=== PATIENT | male | born 1940 | race Caucasian/White ===

== ENCOUNTER 2023-06-02 10:53 | Outpatient (OUT) | payer MEDICARE, SELFPAY ==
--- NOTE | 2023-06-02 | CONS_ITS ---
PROCEDURE DATE: 06/02/2023 PROCEDURE: Trigger point injection right splenius capitis muscle. PREOPERATIVE DIAGNOSIS: Pain secondary to cervical spondylosis, complicated by myofascial spasm of the splenius capitis muscle on the right side. POSTOPERATIVE DIAGNOSIS: Pain secondary to cervical spondylosis, complicated by myofascial spasm of the splenius capitis muscle on the right side. SOLUTION USED FOR INJECTION: 2 mL of 2% lidocaine, 2 mL of 0.25% Marcaine and 10 mg of Kenalog, total of 5 mL, and 2 mL used for the injection at the site. IMMEDIATE COMPLICATIONS: None. PROCEDURE: After informed consent was obtained from the patient, placed in the prone position. Skin overlying the area was prepped with alcohol. A 25 gauge, 1 ?? needle was inserted into the substance of the right splenius capitis muscle at the level of C3. Needle tip advanced until there was a mild twitch response, at which point no indication of intravascular or intraneural needle tip placement. 2 mL of solution was injected. No indication of intravascular or intraneural or intrathecal needle tip placement or injection was noted. Post procedure, patient reports a marked reduction in pain symptoms. EJ
--- NOTE | 2023-06-02 | CONS_ITS ---
CONSULTATION DATE: 06/02/2023 TO: Narayan Arora M.D. CHIEF COMPLAINT: Includes severe right sided neck pain. HISTORY OF PRESENT ILLNESS: Review of systems, past medical/surgical history were obtained and documented on the health questionnaire and is available upon request. He is a 83-year-old male. He reports having pain in the above mentioned areas for at least the last six weeks. It occurred spontaneously and increased gradually to its present state, where he now complains of 8/10 pain, described as a severe tightness with a sharp component, increased with activities such as cervical extension, flexion or when performing lifting maneuvers and pushing/pulling maneuvers are also painful for the patient. He feels most comfortable in the semi-recumbent position. Denies any change in bowel and bladder habits or new sensorimotor changes in the upper extremities. Since the onset of symptoms, he has been using ibuprofen at least 200 mg three times a day for at least the last two months, as he has been using this for also left shoulder pain, but most specifically for his neck pain over the last six weeks. Despite this, and also the use of oral prednisone for the treatment of his neck pain, failed to improve his symptoms significantly. He has also been in a home exercise program, which has been supervised, and he reports his symptoms persist despite the same. His DAMION on today?s visit was 46%. Patient does report he has baclofen at home and has been using this sparingly, but he has not used any in the last several weeks for unclear reasons. EXAM: His examination is notable for patient having no clinical radiculopathy or myelopathy involving his upper extremities. Patient had severe pain with cervical facet loading maneuvers on the right side. It appeared to be more severe at the right C3-4 level and possibly even the C4-5 level. It is associated with myofascial spasm of the right splenius capitis muscle. IMPRESSION: Our impression is patient appears to have chronic pain secondary to cervical spondylosis with facet loading pain clinically. He has failed conservative therapy with the use of nonsteroidal agents, the use of oral steroids, as well as activity modification and home exercise program. RECOMMENDATIONS: I have recommended he consider a trigger point injection into his left splenius capitis to address his myofascial dysfunction. We will proceed with a cervical spine film, PA and lateral views. However, we will place a skin marker over the most painful area. It appears to be at the C3-4 level, thus the need for a skin marker to help evaluate which level to target. He appears to have most of his pain symptoms at the C3-4 and the level below, and we will proceed with a diagnostic right sided medial branch block, most likely at the C3-4 level. We will assess the second level to be done under fluoroscopy. So, we will perform a two level medial branch block corresponding to at least the C3-4 level and then one additional facet level, to be determined during the time of the procedure, under fluoroscopy. Of note, status post trigger point injection of the right splenius capitis muscle, he reports reduction in his pain symptoms post procedurally. As part of providing excellent, safe, comprehensive care, the following was completed at our patient's visit: 1. A medication reconciliation and review to ensure accurate knowledge of current/active medications, including asking our patients to inform us about any [id number] medications or herbal remedies/nutritional supplements/alternative remedies. 2. A review to specifically ensure our patients have had annual screening for: elevated body mass index (BMI, see intake chart for exact total), tobacco use, screening for depression, and screening for unhealthy alcohol use. When screening is concerning, patients are provided with education and the specific recommendation to discuss the concerning health issue and treatment options with their primary care provider. EJ
== END 2023-06-02 10:54 | disposition home or self-care (01) ==
PROVIDERS: PCP Family Medicine; Visit Provider Anesthesiology Pain Medicine
DX: M47.812 Spondylosis without myelopathy or radiculopathy, cervical region (principal); M43.12 Spondylolisthesis, cervical region
CPT/HCPCS: 72050; G0463; J0665; J3301

== ENCOUNTER 2023-06-02 12:27 | Outpatient (OUT) | payer MEDICARE, SELFPAY ==
--- NOTE | 2023-06-02 12:37 | XR_ITS ---
The [address] [address] Patient Name: MARINA PARTIDA MRN: [id number] date: 1940 Sex: M Assigned Patient Location: [facility] Current Patient Location: [facility] Accession/Order Number: [id number] Exam Date: 06/02/2023 12:51 Report Date: 06/02/2023 13:28 At the request of: SONIA MCKEON Procedure: XR cervical spine 5V EXAMINATION: XR cervical spine 5V HISTORY: cervical spondylosis COMPARISON: No relevant comparison available. FINDINGS: BONES: 2 mm anterolisthesis of C3 on C4. 2 mm retrolisthesis of C5 on C6 Mild spondylosis. Lzky-vm-tkohdwfu facet osteoarthropathy DISC SPACES: Multilevel disc space narrowing, moderate to severe C5-6 and C6-C7 PARASPINOUS: Negative. No paraspinous abnormality is seen. OTHER: BB marker denotes the C3 transverse process. XR/XR cervical spine 5V IMPRESSION: Moderate to moderate degenerative changes with multilevel minimal spondylolisthesis Electronically authenticated by: DIRK HARRINGTON Date: 06/02/2023 13:28
== END 2023-06-02 12:28 | disposition home or self-care (01) ==
LOC: RAD 12:29
PROVIDERS: PCP Family Medicine; Visit Provider Anesthesiology Pain Medicine
DX: M47.812 Spondylosis without myelopathy or radiculopathy, cervical region (principal); M43.12 Spondylolisthesis, cervical region
CPT/HCPCS: 72050

== ENCOUNTER 2023-08-03 10:35 | Day surgery (SDC) | payer MEDICARE, SELFPAY ==
[2023-08-03 11:11] VITALS: BP 140/73; PULSE 68; RESP 16; TEMP 36.2; O2SAT 97
[2023-08-03 11:49] VITALS: BP 154/72; PULSE 63; RESP 18; O2SAT 97
[2023-08-03 11:50] VITALS: BP 140/71; PULSE 69; RESP 18; O2SAT 96
[2023-08-03] MEDS: BUPIVACAINE HCL 0.25% PF 25 MG/10 ML VIAL 4 ML INJ (11:50)
[2023-08-03] MEDS: LIDOCAINE HCL 2% PF 100 MG/5 ML VIAL 2 ML INJ (11:50)
--- NOTE | 2023-08-03 11:52 | W.PM.PROCNOT ---
Date of procedure: 08/03/23 Pre-op diagnosis: Cervical spondylosis Post-op diagnosis: same as pre-op Procedure: Procedure: Right C2-3, 3-4 medial branch block Medications: Bupivacaine 0.25% 3cc The patient was seen and examined in the preoperative holding area.? The informed consent was obtained and placed on the chart.? The patient was brought to the medical procedure unit and placed in the prone position.? A timeout was completed verifying correct patient, procedure site, positioning, plan, and special equipment.? Using aseptic technique, the needle is placed at right C2. Under direct fluoroscopic visualization, a Quincke tip needle was advanced to the midpoint of the waist of the articular pillar at the respective medial branch segment. The above-mentioned injectate was placed in a 1 mL aliquot proceeded by negative aspiration.? The needle was removed.? The procedure was completed at right C3, 4. Insertion site was covered.? Patient was taken to the postprocedural recovery area and monitored for an appropriate length of time before found suitable for discharge in the accompaniment of a responsible adult. Anesthesia: Local Surgeon: Monique Bray Pathology: none sent Condition: stable Disposition: no change
== END 2023-08-03 11:58 | disposition home or self-care (01) ==
PROVIDERS: PCP Family Medicine; Visit Provider Anesthesiology
DX: M47.812 Spondylosis without myelopathy or radiculopathy, cervical region (principal)
CPT/HCPCS: 64490; 64491

== ENCOUNTER 2023-08-12 12:42 | Outpatient (OUT) | payer MEDICARE, SELFPAY ==
--- NOTE | 2023-08-12 12:46 | P.CN_ITS ---
Consult Note: HPI Data of Consult Patient: known to practice within the last 3 years Requesting Physician: Shasta Joshi NP Primary Care Provider: MARLON LUU Consult Narrative Reason for consult: f/u Narrative: Good Bobby a pleasant 83 year old male presents for evaluation and management of chronic right sided neck and left shoulder pain greater than 3 months unresponsive to HEP greater than 6 weeks, conservative medications. In the past utilized ibuprofen 200mg PRN with mild benefit. Failed prednisone. Pain today 7- 12/18 at this time, patient has not taken any ibuprofen today. utilizes heat PRN which can worsen his pain. Patient has been prescribed baclofen in the past which helps but causes drowsiness. Recently underwent Right C2-3, 3-4 medial branch block with >80% improvement in pain and functional ability immediately following and days following the procedures. cc:: CC: Shasta Joshi NP Review of Systems ROS Status of ROS 10 or more systems reviewed and unremark able except as noted in history and below Musculoskeletal Reports: neck pain Meds Home Medications and Allergies Home Medications ?Medication ?Instructions ?Recorded ?Confirmed ?Type albuterol sulfate 90 mcg/actuation 1 inh inhalation .everyday PRN 06/02/23 0 08/03/23 History breath activated powder inhaler shortness of breath or wheezing ibuprofen 200 mg capsule 200 mg PO TID PRN pain 06/02/23 08/03/23 History triamcinolone acetonide 0.1 % 1 applic topical DAILY PRN itching 06/02/23 08/03/23 History topical cream Allergies Allergy/AdvReac Type Severity Reaction Status Date / Time No Known Drug Allergies Allergy Verified 08/03/23 11:19 Exam Constitutional Documenting provider has reviewed patient's vital signs: yes Common normals: no apparent distress, oriented x3, healthy appearing, alert and well nourished General appearance: cooperative HENMT Common normals: normocephalic, hearing grossly normal bilaterally and moist oral mucous membranes Head and scalp: normocephalic Eye Common normals: PERRL Pupil: PERRL Neck & C-Spine Common normals: full ROM General: normal visual inspection Cervical spine: pain with cervical ROM, cervical spine tenderness, paracervical muscle tenderness and paracervical muscle spasm Other: axial neck pain pain increased over right C2-3 C3-4 facet joints no radiculopathy on exam Chest Common normals: inspection of chest normal Respiratory Common normals: normal respiratory effort, no retractions and no use of accessory muscles Extremity Common normals: normal to inspection and full ROM Neuro Common normals: oriented x3, CN's II-XII intact bilaterally, moves all extremities, no focal motor deficits, no sensory deficits noted, deep tendon reflexes 2+ bilaterally and gait normal Sensorium/orientation: alert Motor exam: strength 5/5 throughout and no movement abnormalities noted Psych Common normals: mental status grossly normal, thought process normal, cooperative, affect normal, speech normal and activity/motor behavior normal Speech: normal speech Thought process: normal thought process Results Additional Findings Additional findings: If on a controlled substance or opioids, I have checked an [place] report on this patient and there are no aberrancies noted in the prescribing history.??If on a controlled substance or opioid a drug screen was completed and reviewed within the last year, and if there has not been a drug screen completed we ordered one today to monitor higher risk, state monitored pain medication use. As part of providing excellent, safe, comprehensive care, the following was completed at our patient's visit: 1. A medication reconciliation and review to ensure accurate knowledge of current/active medications, including asking our patients to inform us about any [id number] medications or herbal remedies/nutritional supplements/alternative remedies. 2. A review to specifically ensure our patients have had annual screening for screening for depression, screening for tobacco use, and screening for unhealthy alcohol use. For concerning screenings had a discussion with the patient, provided patient education, and recommended follow-up with primary care provider when appropriate. If patient noted with a risk of falling, they received education on strength, gait, and balance training to prevent future risk of falling. Assessment and Plan Assessment and Plan (1) Cervical spondylosis: Assessment and Plan: The patient has had over 3 months of moderate to severe neck pain with functional impairment and inadequate response to conservative care including NSAIDS (unless there are contraindication such as concurrent blood thinners), multiple oral or topical pain medications, and home exercise program/physical therapy.? Patient has completed >6 weeks of guided home exercise program and/or formal physical therapy program without relief of their symptoms.? I have reviewed the imaging of the cervical spine and no red flags were identified.? The Oswestry Disability Index was completed, and the patient scored a %.? The patient noted the following:?? {[id number]}? We discussed the risks and benefits of the procedure with the patient, and we are NOT planning on using sedation as outlined in the guidelines from Medicare unless there is a documented reason that sedation would be strongly recommended.?? The procedure will be completed with fluoroscopic guidance.? (2) Myofascial pain: Plan right C2-3 C3-4 facet medial branch block #2 continue PRN ibuprofen f/u 1 week after injection
--- OUTSIDE RECORDS SUMMARY | 2023-08-12 12:46 | XMS_ITS | CCD ---
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 Name Role Phone PHYSICIAN, DEFAULT Unavailable Unavailable PHYSICIAN, DEFAULT Unavailable Unavailable PHYSICIAN, DEFAULT Unavailable Unavailable PHYSICIAN, DEFAULT Unavailable Unavailable Jamie Kent [phone] MD Narayan Luu Primary Care Provider [phone] MD Jamie Kent Attending Provider MD Narayan Luu Primary Care Provider MD Jamie Kent Attending Provider BELL, DR MASON Attending Unavailable BELL, DR MASON Consulting Unavailable BELL, DR MASON Primary Care Unavailable BELL, DR MASON Admitting Unavailable ZIEBER, DR ROGERIO Patel Consulting Unavailable Bell, MD Narayan Chung Primary Care Provider MD Jamie Kent Attending Provider MD Narayan Luu Primary Care Provider MD Jamie Kent Attending Provider [phone] Jamie Kent Admitting Unavaila ble Narayan Luu Primary Care Unavailable Jamie Kent Attending Unavaila ble Narayan Luu Primary Care Unavailable Jamie Kent Attending Unavaila ble Jamie Kent Admitting Unavaila ble Narayan Luu Primary Care Unavailable Jamie Kent Attending Unavaila ble Jamie Kent Admitting Unavaila ble INDER OLIVEIRA Attending Unavailable APLJESUS RODRIGUEZ Attending Unavailable NARAYAN LUU Attending Unavailable APLINGJESUS Attending Unavailable APLINGJESUS Referring Unavailable APLINGJESUS Attending Unavailable APLINGJESUS Referring Unavailable Allergies Allergy Classification Reported Allergen(s) Allergy Type Date of Onset Reaction(s) Facility (3 sources) levoFLOXacin Drug Allergy Unknown [facility] Other (2 sources) Penicillin V Drug Allergy Unknown [facility] Other (2 sources) Penicillin Drug Allergy Unknown [facility] Repository Medications Current Medications Medication Drug Class(es) Dates Sig (Normalized) Sig (Original) [id number] 200 actuat albuterol 0.09 mg/actuat metered dose inhaler (3 sources) beta2-Adrenergic Agonist take 1 puff(s) by inhalation every four hours as needed Albuterol Sulfate HFA 108 (90 Base) MCG/ACT 1 puff as needed Inhalation every 4 hrs for 90 days Active take 1 puff(s) by in halation every four hours as needed Albuterol Sulfate HFA 108 (90 Base) MCG/ACT 1 puff as needed Inhalation every 4 hrs Active cefuroxime 500 mg oral tablet (1 source) Cephalosporin Antibacterial take 0.5 tablet by mouth at bedtime Cefuroxime Axetil 500 MG 1/2 tablet Orally at bedtime Active metroNIDAZOLE 500 mg oral tablet (1 source) Nitroimidazole Antimicrobial take 1 tablet by mouth every twenty-four hours metroNIDAZOLE 500 MG 1 tablet Orally Once a day Active nabumetone 500 mg oral tablet (2 sources) Nonsteroidal Anti-inflammatory Drug take 1 tablet by mouth every twelve hours Nabumetone 500 MG 1 tablet Orally Twice a day prn Active Problems Problem Classification Problem Date Documented Da te Episodic/Chronic Nonspecific chest pain (4 sources) Chest pain, unspecified; Translations: [CHEST PAIN UNSPECIFIED] Onset: 09-09-2022 Episodic Other lower respiratory disease (3 sources) Interstitial lung disease; Translations: [Interstitial pulmonary disease, unspecified] Chronic Other lower respiratory disease (3 sources) Interstitial pulmonary disease, unspecified Onset: 10-24-2021 Resolved: 10-24-2021 Chronic Other lower respiratory disease (1 source) Other forms of dyspnea; Translations: [OTHER FORMS OF DYSPNEA] Onset: 09-15-2022 Episodic Residual codes; unclassified (1 source) Localized edema; Translations: [LOCALIZED EDEMA] Onset: 09-15-2022 Episodic Unclassified (1 source) Interstitial pulmonary disease, unspecified; Translations: [Interstitial pulmonary disease, unspecified] Onset: 12-09-2022 Results Test Name Value Interpretation Reference Range Facil ity CT chest wo conon 12-09-2022 CT chest wo con [facility] [place] [address] [place] [id number] Scan Report Signed Patient: Russell Bobby MR#: [id number] : 1940 Acct:[id number] Age/Sex: 82 / M ADM Date: 12/09/22 Loc: CT Room: Type: [facility] Attending Dr: Jamie Kent MD Copies to: Jamie Kent MD Ordering Provider: Jamie Kent MD Date of Service: 12/09/22 CT/CT chest wo con: J84.9 CT CHEST WITHOUT IV CONTRAST: CLINICAL HISTORY: Follow-up pulmonary fibrosis COMPARISON: High-resolution CT chest 04/25/2021 TECHNIQUE: Spiral images were obtained through the chest without IV contrast. This CT exam was performed using one or more following dose reduction techniques: Automated exposure control, adjustment of the mA and/or kV according to patient size, or use of iterative reconstruction technique. FINDINGS: Mediastinum:Thoracic aorta demonstrates mild calcification without aneurysm. Pulmonary trunk appears nondilated. No pleural effusion. No lymphadenopathy. Calcified lymph nodes. The esophagus is grossly unremarkable. Lungs:The degree of fibrotic changes are grossly similar to the prior study, predominantly involving the lung bases without significant honeycombing. Diffuse bronchial wall thickening is noted. With mild bronchiectasis. No consolidation pneumothorax or pleural effusion. No suspicious pulmonary nodule. Abd:No acute findings. Splenic granulomas. Soft tissues/Bones: Soft tissues demonstrate no acute findings. Osseous structures demonstrate degenerative change. CT/CT chest wo con IMPRESSION: No significant change in fibrotic changes of the lungs when compared to the prior study from 04/25/2021. Impression dictated by: Gregorio Parikh Jr., D.O.12/09/2022 7:09 PM Dictation Location: [place] [address] Transcribed By: [facility] 12/09/221908 Dictated By: Gregorio Parikh Jr, DO 12/09/22 1635 Signed By: 12/09/221908 [facility] NM STRESS/REST MULTIon 09-09 NM STRESS/REST MULTI Patient: RUSSELL BOBBY Exam Date: 09/09/2022 : 1940 Gender:M Ordering : DR NARAYAN LUU M.D. Admission #: [id number] Family : Order #: [id number] CLICK HERE TO VIEW EXAM RADIOLOGY REPORT PROCEDURE: RADIONUCLIDE IMAGING STRESS/REST MULTI COMPARISON: None. INDICATIONS: Dyspnea, chest pain TECHNIQUE: Exam Description: Stress/Rest one day protocol gated SPECT Rest Imagin.0 mCi Tc-99m Cardiolite IV on 09/09/2022 Stress Imaging 32.4 mCi Tc-99m Cardiolite IV on 09/09/2022 Exercise Protocol: Candido Heart Rate (bpm): Rest: 63 Max: 116 PMHR: 85 Blood Pressure: Rest: 146/78 Max: 168/84 Exercise Time: Minutes: 4 Seconds: 15 Stage Reached: Stage: 2 Mets 4.6 Symptoms: Rest and peak stress ECG findings were normal and the exercise portion of the study was normal per attending physician Dr. Rose . For more details please see separate cardiac stress test report. FINDINGS: QUALITY OF STUDY: Excellent. PERFUSION DEFECT: None. LOCATION: N/A SIZE: N/A. SEVERITY: N/A. TYPE: N/A. WALL MOTION: Normal. LV SIZE: Normal. 66 mL. TID / TCD: None; 0.9 LVEF: Normal. Calculated EF 80%. SUMMARY: Myocardial perfusion imaging study is NORMAL. CONCLUSION: 1. Normal nuclear medicine myocardial perfusion scan. Dictated by: Rogerio Null M.D. on 09/09/2022 at 13:29 Approved by: Rogerio Null M.D. on 09/09/2022 at 13:31 Normal [facility] Reminderson 03-23-2019 Reminders - From: Rosalie Roque To: EU - Clinical; Rosalie Roque; Sent: 02/25/2019 12:49:09 EDT Show up: 03/01/2019 08:00:00 EDT Subject: scrotal us results Due Date/Time: 03/02/2019 12:48:00 EDT Reminder/Recall Show PRW scrotal US results, Patient may need appt or right Hydrocelectomy [place]- 02/28/19 @ 1:45pm, scrotal US, order faxed From: Rojelio Smith MA ( - Clinical) To: Luis MEADE MD; Sent: 03/01/2019 08:34:22 EDT Show up: 03/01/2019 08:34:00 EDT Subject: RE: scrotal us results Results scanned into chart. Please review Scoral US report done yesterday at [place]. (black menu- documentation) From: Luis MEADE MD To: - Clinical; Sent: 03/01/2019 11:46:26 EDT Show up: 03/01/2019 11:46:00 EDT Subject: RE: scrotal us results already saw this pw. Pt was notified of results. scheduled for Hydrocelectomy on 03/31/19. Normal [facility] Vital Signs Date Time Vital Sign Value Performing Clinician Lisa lennon 04-08-2023 09:45-0500 Body height 167.64 cm Jamie Kent Other [facility] Other 04-08-2023 09:45-0500 Body mass index (BMI) [Ratio] 28.24 kg/m2 Jamie Kent Other [facility] Other 04-08-2023 09:45-0500 Body temperature 96.4 [degF] Jamie Kent Other [facility] Other 04-08-2023 09:45-0500 Body weight 79.38 kg Jamie Kent Other [facility] Other 04-08-2023 09:45-0500 Diastolic blood pressure 74 mm[Hg] Christopher Yoli Other [facility] Other 04-08-2023 09:45-0500 Respiratory rate 20 /min Christkaraner Yoli Other [facility] Other 04-08-2023 09:45-0500 SaO2% (BldA) [Mass fraction] 98 % Christkaraner Yoli Other [facility] Other 04-08-2023 09:45-0500 Systolic blood pressure 122 mm[Hg] Bober Yoli Other [facility] Other 03-26-2022 12:45-0500 Body height 167.64 cm Bober Yoli Other [facility] Other 03-26-2022 12:45-0500 Body mass index (BMI) [Ratio] 28.08 kg/m2 Christkaraner Yoli Other [facility] Other 03-26-2022 12:45-0500 Body temperature 97.1 [degF] Bober Yoli Other [facility] Other 03-26-2022 12:45-0500 Body weight 78.93 kg Christkaraner Yoli Other [facility] Other 03-26-2022 12:45-0500 Diastolic blood pressure 73 mm[Hg] Christkaraner Yoli Other [facility] Other 03-26-2022 12:45-0500 Respiratory rate 20 /min Christkaraner Yoli Other [facility] Other 03-26-2022 12:45-0500 Systolic blood pressure 124 mm[Hg] Juanpearl Lermadano Other [facility] Other 10-24-2021 12:45-0400 Body height 167.64 cm Bobjason LermaYoli Other [facility] Other 10-24-2021 12:45-0400 Body mass index (BMI) [Ratio] 29.05 kg/m2 Juanpearl Lermadano Other [facility] Other 10-24-2021 12:45-0400 Body temperature 97.4 [degF] Juanpearl Lermadano Other [facility] Other 10-24-2021 12:45-0400 Body weight 81.65 kg Juanpearl Lermadano Other [facility] Other 10-24-2021 12:45-0400 Diastolic blood pressure 80 mm[Hg] Jamie Yoli Other [facility] Other 10-24-2021 12:45-0400 Respiratory rate 20 /min Jamie Kent Other [facility] Other 10-24-2021 12:45-0400 SaO2% (BldA) [Mass fraction] 94 % Jamie Yoli Other [facility] Other 10-24-2021 12:45-0400 Systolic blood pressure 129 mm[Hg] Jamie Padillano Other [facility] Other Encounters Encounter Date Encounter Type Care Provider Facility Start: 07-20-2023 End: 07-20-2023 ambulatory JESUS B APLING Not Available Start: 05-27-2023 End: 05-28-2023 ambulatory JESUS Ledezma APLING Not Available Start: 05-07-2023 End: 05-07-2023 ambulatory INDER OLIVEIRA Not Available Start: 04-22-2023 End: 04-23-2023 ambulatory JESUS Ledezma APLING Not Available Start: 04-13-2023 End: 04-13-2023 ambulatory RUGEN M BELL Not Available Start: 04-08-2023 End: 04-08-2023 ambulatory Jamie Kent Other [facility] Other Start: 04-08-2023 Office outpatient visit 25 minutes Jamie Kent [facility] Start: 03-18-2023 End: 03-18-2023 ambulatory Narayan Chung [place] Facility:[facility] Start: 03-18-2023 End: 03-18-2023 ambulatory MD Narayan Luu Work Phone: [facility] Work Phone: Start: 03-18-2023 End: 03-18-2023 Patient encounter procedure MD Narayan Luu Work Phone: [facility]-Respiratory Therapy Work Phone: Start: 12-09-2022 End: 12-09-2022 ambulatory Jamie Kent Facility:[facility] Start: 12-09-2022 End: 12-09-2022 ambulatory MD Narayan Luu Work Phone: [facility] Work Phone: Start: 12-09-2022 End: 12-09-2022 Patient encounter procedure MD Narayan Luu Work Phone: [facility]-CT Scan [facility] [place] Work Phone: Start: 10-15-2022 End: 10-15-2022 ambulatory Narayan Luu Facility:[facility] Start: 10-15-2022 End: 10-15-2022 ambulatory MD Narayan Luu Work Phone: [facility] Work Phone: Start: 10-15-2022 End: 10-15-2022 Patient encounter procedure MD Narayan Luu Work Phone: [facility]Res[facility] Work Phone: Start: 09-09-2022 End: 09-10-[address] NARAYAN LUU Facility: Start: 03-26-2022 End: 03-26-2022 ambulatory Jamie Kent Other [facility] Other Start: 03-26-2022 Office outpatient visit 15 minutes Jamie Kent [facility] Start: 03-18-2022 End: 03-18-2022 ambulatory MD Narayan Luu Work Phone: [facility] Work Phone: Start: 03-18-2022 End: 03-18-2022 Patient encounter procedure MD Narayan Luu Work Phone: [facility]Res[facility] Start: 11-06-2021 End: 11-06-2021 Patient encounter procedure MD Narayan Luu Work Phone: [facility] Start: 10-24-2021 End: 10-24-2021 ambulatory Jamie Kent Other [facility] Other Start: 10-24-2021 Office outpatient visit 25 minutes Jamie Kent [facility] Start: 12-08-2016 End: 12-09-2016 Ambulatory DEFAULT PHYSICIAN Facility:[facility] Start: 11-20-2016 End: 11-21-2016 Ambulatory DEFAULT PHYSICIAN Facility:[facility] Procedures Date Procedure Procedure Detail Performing Clinician Start: 12-09-2022 CT of chest without contrast MD Narayan Luu Work Phone: Immunizations Immunization Date Immunization Notes Care Provider Fa cili 02-21-2022 COVID-19 Pfizer (bivalent) Jamie Kent Other [facility] Other 10-04-2021 COVID-19 Pfizer Christopher Yoli Other [facility] Other 02-11-2021 COVID-19 Vaccine Pfizer - Documentation Purposes Only Christopher Yoli Other [facility] Other 06-23-2020 Do not use COVID-19 Pfizer 2 dose Christopher Yoli Other [facility] Other 06-02-2020 Do not use COVID-19 Pfizer 2 dose Christopher Yoli Other [facility] Other Payers Date Payer Category Payer Self-pay [id number] 1961 Medicare [id number] 2. [id number] 1940 Unknown [id number] 2.16.84 [id number] 1940 Unknown [id number] 2.16.84 [id number] 1940 Unknown [id number] 2.16.84 [id number] 1940 Unknown [id number] 2.16.84 [id number] 1940 Unknown [id number] 2.16.840 .[id number] 1940 Unknown [id number] 2.16.840 .[id number] 1940 Unknown [id number] 2.16.840 .[id number] 1940 Unknown [id number] 2.16.840 .[id number] Unknown Unknown [id number] 2.16.8 40.1.539117.3.579.2.531 Unknown [id number] 2.16.8 [id number] Unknown [id number] 2.16.8 [id number] Social History Date Type Detail Facility Sex Assigned At [facility] Other Start: 1940 Sex Assigned At Male F [facility] Evaluation note 04-08-2023 Note Date & Type Note Facility 04-08-2023 Evaluation note Encounter Date Diagnosis Assessment Notes Mar, Interstitial lung disease (ICD-10 - J84.9) [facility] Other Evaluation note 03-26-2022 Note Date & Type Note Facility 03-26-2022 Evaluation note Encounter Date Diagnosis Assessment Notes Mar, Interstitial lung disease (ICD-10 - J84.9) [facility] Other Evaluation note 10-24-2021 Note Date & Type Note Facility 10-24-2021 Evaluation note Encounter Date Diagnosis Assessment Notes Oct, Interstitial lung disease (ICD-10 - J84.9) [facility] Other Evaluation note Note Date & Type Note Facility [facility] History general Narrative - Reported Note Date & Type Note Facility History general Narrative - Reported Type Medical History lt. hip bursitis Medical History sinusitis Medical History asthma Medical History diverticulosis Medical History pulmonary fibrosis Medical History pneumonia Medical History interstitial lung disease Surgical History sinus surgery Surgical History back surgery Surgical History kyphoplasty 2007 Surgical History lumbar back 1995 Surgical History trigger thumb left 2014 Surgical History RFA inj. 2019 Surgical History hydrocele repair rt. 2019 Surgical History ENT surgery 2002 Hospitalization History surgery [facility] Other History general Narrative - Reported Note Date & Type Note Facility History general Narrative - Reported Type Medical History lt. hip bursitis Medical History sinusitis Medical History asthma Medical History diverticulosis Medical History pulmonary fibrosis Medical History pneumonia Medical History interstitial lung disease Surgical History sinus surgery Surgical History back surgery Surgical History kyphoplasty 2008 Surgical History lumbar back 1995 Surgical History trigger thumb left 2014 Surgical History RFA inj. 2019 Surgical History hydrocele repair rt. 2019 Surgical History ENT surgery 2002 Hospitalization History surgery Hospitalization History [facility] ER pleurcy 07/2022 [facility] Other Summary Purpose Family History No Family History Records FoundNo Family History Records FoundNo Family History Records FoundNo Family History Records FoundNo Family History Records Found Advance Directives No Advanced Directives Records Found Advance Directive Response Recorded Date/ Time Advance Directives No April 12:05pm Advance Directive Response Recorded Date/ Time Advance Directives No April 11:05am Chief Complaint and Reason for Visit Chief Complaint J84.9 Chief Complaint j84.9 Chief Complaint j84.9 j84.9 Additional Source Comments (unrecognized sect ion and content) No Status Records FoundNo Status Records FoundNo Status Records FoundNo Status Records FoundNo Status Records Found INFORMATION SOURCE (unrecogn ized section and content) DATE CREATED AUTHOR 11/04/2017 [facility] DATE CREATED AUTHOR AUTHOR'S ORGANIZ ATION 05/10/2019 [facility] DATE CREATED AUTHOR AUTHOR'S ORGANIZ ATION 09/16/2022 [facility] DATE CREATED AUTHOR AUTHOR'S ORGANIZ ATION 03/27/2023 [facility] DATE CREATED AUTHOR AUTHOR'S ORGANIZ ATION 07/21/2023 [facility] EPIC REASON FOR VISIT (unrecogniz ed section and content) 3 mo f/u ILD5 mo f/u ILD3 mo f/u ILD Care Teams (unrecognized sec tion and content) Team Status: Active Member Role Status Dates Narayan Luu MD Primary Care Provider Active Team Status: Inactive Member Role Status Dates Narayan Luu MD Primary Care Provider Active Jamie Kent MD Attending Provider Active Goals (unrecognized section and content) Goals may be documented in a n alternate section FOR RECORDS PERTAINING TO PATIENTS WHO ARE OR HAVE BEEN ENROLLED IN A CHEMICAL DEPENDENCY/SUBSTANCEABUSE PROGRAM, SOME INFORMATION MAY BE OMITTED. This clinical summary was aggregated from multiple sources. Caution should be exercised in using it in the provision of clinical care. This summary normalizes information from multiple sources, and as a consequence, information in this document may materially change the coding, format and clinical context of patient data. In addition, data may be omitted in some cases. CLINICAL DECISIONS SHOULD BE BASED ON THE PRIMARY CLINICAL RECORDS. [facility]. provides no warranty or guarantee of the accuracy or completeness of information in this document.
== END 2023-08-12 12:43 | disposition home or self-care (01) ==
LOC: PM 12:42
PROVIDERS: PCP Family Medicine; Visit Provider Nurse Practitioner
DX: M47.812 Spondylosis without myelopathy or radiculopathy, cervical region (principal); M79.18 Myalgia, other site
CPT/HCPCS: G0463

== ENCOUNTER 2023-09-08 10:00 | Day surgery (SDC) | payer MEDICARE, SELFPAY ==
--- OUTSIDE RECORDS SUMMARY | 2023-09-08 10:07 | XMS_ITS | CCD ---
Author Organization [facility] Care Team Providers Care Board Runner Name Role Phone PHYSICIAN, DEFAULT Unavailable Unavailable PHYSICIAN, DEFAULT Unavailable Unavailable PHYSICIAN, DEFAULT Unavailable Unavailable PHYSICIAN, DEFAULT Unavailable Unavailable Jamie Kent [phone] MD Narayan Luu Primary Care Provider MD Jamie Kent Attending Provider MD Narayan Luu Primary Care Provider MD Jamie Kent Attending Provider BELL, DR MASON Attending Unavailable BELL, DR MASON Consulting Unavailable BELL, DR MASON Primary Care Unavailable BELL, DR MASON Admitting Unavailable ZIEBER, DR ROGERIO Patel Consulting Unavailable Bell, MD Narayan Chung Primary Care Provider MD Jamie Kent Attending Provider 1( [phone] MD Narayan Luu Primary Care Provider MD Jamie Kent Attending Provider Jamie Kent Admitting Unavaila ble Narayan Luu Primary Care Unavailable Jamie Kent Attending Unavaila ble Narayan Luu Primary Care Unavailable Jamie Kent Attending Unavaila ble Jamie Kent Admitting Unavaila ble BellNarayan Primary Care Unavailable Jamie Kent Attending Unavaila ble Jamie Kent Admitting Unavaila ble INDER OLIVEIRA Attending Unavailable APLINGJESUS Attending Unavailable APLINGJESUS Referring Unavailable APLINGJESUS Attending Unavailable APLINGJESUS Attending Unavailable APLINGJESUS Referring Unavailable BELLNARAYAN Attending Unavailable APLINGJESUS B Attending Unavailable JESUS VALENCIA Referring Unavailable Allergies Allergy Classification Reported Allergen(s) Allergy Type Date of Onset Reaction(s) Facility (3 sources) levoFLOXacin Drug Allergy Unknown [facility] Other (2 sources) Penicillin V Drug Allergy Unknown [facility] Other (2 sources) Penicillin Drug Allergy Unknown [facility] Repository Medications Current Medications Medication Drug Class(es) Dates Sig (Normalized) Sig (Original) [id number] 200 actuat albuterol 0.09 mg/actuat metered dose [...] Name Value Interpretation Reference Range Facil ity MR SHOULDER LEFT WO IV CONTR Abbie 09-02-2023 MR SHOULDER LEFT WO IV CONTRAST EXAM: MR SHOULDER LEFT WO IV CONTRAST HISTORY: Shoulder pain TECHNIQUE: Multiplanar multisequence MRI of the shoulder was performed Without contrast. COMPARISON: Shoulder radiographs April 22, 2023. FINDINGS: Mild degenerative changes of the acromioclavicular joint with small undersurface osteophyte formation. Lateral downsloping of the acromion. The acromion is curved. Coracoclavicular ligament intact. Trace subacromial/subdeltoid bursal fluid. Low-grade articular surface tear of distal anterior through posterior fibers of supraspinatus tendon at the footprint with possible tiny full-thickness component of the anterior fibers. Tiny intrasubstance tear of superior fibers of subscapularis tendon at the level of the glenohumeral joint. Spinatus and teres minor tendons are intact. No atrophy or fatty infiltration of the rotator cuff musculature. Mild intra-articular and proximal extra-articular long head biceps tendinosis. The biceps tendon resides within the bicipital groove. Anterior superior through posterior superior labral degeneration/tearing. Nondisplaced tear of the inferior through posterior inferior labrum with formation of a tiny paralabral cyst resides along the posterior aspect of the glenoid. Partial-thickness cartilage loss of the humeral head and glenoid without well-defined or measurable cartilage defect. Small glenohumeral joint effusion with a few tiny loose bodies within the axillary recess. IMPRESSION: Low-grade articular surface tear of distal anterior through posterior fibers of supraspinatus tendon at the footprint with possible tiny full-thickness component of the anterior fibers. Tiny intrasubstance tear of superior fibers of subscapularis tendon . Labral tears as detailed. Mild long head biceps tendinosis. 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 ELECTRONICALLY SIGNED BY: Geoffrey Burton, DO Normal Not Available CT chest wo conon 12-09-2022 CT chest wo [facility] [place] [address] [place] [address] CT Scan Report Signed Patient: Russell Bobby MR#: [id number] : 1940 Acct:[id number] Age/Sex: 82 / M ADM Date: 12/09/22 Loc: CT Room: Type: [facility] Attending Dr: Jamie Kent MD Copies to: [...] Parikh Jr., D.O.12/09/2022 7:09 PM Dictation Location: [place] [address] Transcribed By: [facility] 12/09/221908 Dictated By: Gregorio Parikh Jr, 12/09/22 1635 Signed By: 12/09/221908 [facility] NM STRESS/REST MULTIon 09-09 NM STRESS/REST MULTI Patient: RUSSELL BOBBY Exam Date: 09/09/2022 : 1940 Gender:M Ordering : DR NARAYAN LUU M.D. Admission #: [id number] Family : Order #: [id number] CLICK HERE TO VIEW EXAM RADIOLOGY REPORT [...] Null M.D. on 09/09/2022 at 13:31 Normal [facility] Reminderson 03-23-2019 Reminders - From: Rosalie Roque To: [facility] - Clinical; Rosalie Roque; Sent: 02/25/2019 12:49:09 EDT Show up: 03/01/2019 08:00:00 EDT Subject: scrotal us results Due Date/Time: 03/02/2019 12:48:00 EDT Reminder/Recall Show PRW scrotal US results, Patient may need appt or right Hydrocelectomy [place]- 02/28/19 @ 1:45pm, scrotal US, order faxed From: Rojelio Smith MA ([facility] - Clinical) To: Luis MEADE MD; Sent: 03/01/2019 08:34:22 EDT Show up: 03/01/2019 08:34:00 EDT Subject: RE: scrotal us results Results scanned into chart. Please review Scoral US report done yesterday at [place]. (black menu- documentation) From: Luis MEADE MD To: [facility] - Clinical; Sent: 03/01/2019 11:46:26 EDT Show up: 03/01/2019 11:46:00 EDT Subject: RE: scrotal us results already saw this pw. Pt was notified of results. scheduled for Hydrocelectomy on 03/31/19. Normal [facility] Vital Signs Date Time Vital Sign Value Performing Clinician Lisa lennon 04-08-2023 09:45-0500 Body height 167.64 cm Jamie Kent Other [facility] Other 04-08-2023 09:45-0500 Body mass index (BMI) [Ratio] 28.24 kg/m2 Jamie Kent Other [facility] Other 04-08-2023 09:45-0500 Body temperature 96.4 [degF] Jamie Kent Other [facility] Other 04-08-2023 09:45-0500 Body weight 79.38 kg Jamie Kent Other [facility] Other 04-08-2023 09:45-0500 Diastolic blood pressure 74 mm[Hg] Jamie Kent Other [facility] Other 04-08-2023 09:45-0500 Respiratory rate 20 /min Jamie Kent Other [facility] Other 04-08-2023 09:45-0500 SaO2% (BldA) [Mass fraction] 98 % Christkaraner Yoli Other [facility] Other 04-08-2023 09:45-0500 Systolic blood pressure 122 mm[Hg] Christkaraner Yoli Other [facility] Other 03-26-2022 12:45-0500 Body height 167.64 cm Christopher Yoli Other [facility] Other 03-26-2022 12:45-0500 Body mass index (BMI) [Ratio] 28.08 kg/m2 Christopher Yoli Other [facility] Other 03-26-2022 12:45-0500 Body temperature 97.1 [degF] Bober Yoli Other [facility] Other 03-26-2022 12:45-0500 Body weight 78.93 kg Christkaraner Yoli Other [facility] Other 03-26-2022 12:45-0500 Diastolic blood pressure 73 mm[Hg] Christkaraner Yoli Other [facility] Other 03-26-2022 12:45-0500 Respiratory rate 20 /min Christopher Yoli Other [facility] Other 03-26-2022 12:45-0500 Systolic blood pressure 124 mm[Hg] Christopher Yoli Other [facility] Other 10-24-2021 12:45-0400 Body height 167.64 cm Bober Yoli Other [facility] Other 10-24-2021 12:45-0400 Body mass index (BMI) [Ratio] 29.05 kg/m2 Jamie Kent Other [facility] Other 10-24-2021 12:45-0400 Body temperature 97.4 [degF] Jamie Kent Other [facility] Other 10-24-2021 12:45-0400 Body weight 81.65 kg Jamie Kent Other [facility] Other 10-24-2021 12:45-0400 Diastolic blood pressure 80 mm[Hg] Jamie Kent Other [facility] Other 10-24-2021 12:45-0400 Respiratory rate 20 /min Jamie Kent Other [facility] Other 10-24-2021 12:45-0400 SaO2% (BldA) [Mass fraction] 94 % Jamie Kent Other [facility] Other 10-24-2021 12:45-0400 Systolic blood pressure 129 mm[Hg] Jamie Kent Other [facility] Other Encounters Encounter Date Encounter Type Care Provider Facility Start: 09-02-2023 End: 09-03-2023 ambulatory JESUS B APLING Not Available Start: 08-19-2023 End: 08-19-2023 ambulatory JESUS B APLING Not Available Start: 07-20-2023 End: 07-20-2023 ambulatory JESUS B APLING Not Available Start: 05-27-2023 End: 05-28-2023 ambulatory JESUS B APLING Not Available Start: 05-07-2023 End: 05-07-2023 ambulatory INDER Bradley OLIVEIRA Not Available Start: 04-22-2023 End: 04-23-2023 ambulatory JESUS Ledezma APLING Not Available Start: 04-13-2023 End: 04-13-2023 ambulatory NARAYAN LUU Not Available Start: 04-08-2023 End: 04-08-2023 ambulatory Jamie Kent Other [facility] Other Start: 04-08-2023 Office outpatient visit 25 minutes Jamie Kent [facility] Start: 03-18-2023 End: 03-18-2023 ambulatory Narayan Luu Facility:[facility] Start: 03-18-2023 End: 03-18-2023 ambulatory MD Narayan Luu Work Phone: [facility] Work Phone: Start: 03-18-2023 End: 03-18-2023 Patient encounter procedure MD Narayan Luu Work Phone: [facility]-Respiratory Therapy Work Phone: Start: 12-09-2022 End: 12-09-2022 ambulatory Jamie Kent Facility:[facility] Start: 12-09-2022 End: 12-09-2022 ambulatory MD Narayan Luu Work Phone: [facility] Work Phone: Start: 12-09-2022 End: 12-09-2022 Patient encounter procedure MD Narayan Luu Work Phone: [facility]-CT Scan [facility] [place] Work Phone: Start: 10-15-2022 End: 10-15-2022 ambulatory Narayan Luu Facility:[facility] Start: 10-15-2022 End: 10-15-2022 ambulatory MD Narayan Luu Work Phone: [facility] Work Phone: Start: 10-15-2022 End: 10-15-2022 Patient encounter procedure MD Narayan Luu Work Phone: [facility]-Respiratory Therapy Work Phone: Start: 09-09-2022 End: 09-10-[address] NARAYAN LUU Facility: Start: 03-26-2022 End: 03-26-2022 ambulatory Jamie Kent Other [facility] Other Start: 03-26-2022 Office outpatient visit 15 minutes Christpearl Kent [facility] Start: 03-18-2022 End: 03-18-2022 ambulatory MD Narayan Luu Work Phone: [facility] Work Phone: Start: 03-18-2022 End: 03-18-2022 Patient encounter procedure MD Narayan Luu Work Phone: [facility]Respiratory Therapy Start: 11-06-2021 End: 11-06-2021 Patient encounter procedure MD Narayan Luu Work Phone: [facility]Respiratory Therapy Start: 10-24-2021 End: 10-24-2021 ambulatory Jamie Kent Other [facility] Other Start: 10-24-2021 Office outpatient visit 25 minutes Christopher Yoli [facility] Start: 12-08-2016 End: 12-09-2016 Ambulatory DEFAULT PHYSICIAN Facility:[facility] Start: 11-20-2016 End: 11-21-2016 Ambulatory DEFAULT PHYSICIAN Facility:[facility] Procedures Date Procedure Procedure Detail Performing Clinician Start: 12-09-2022 CT of chest without contrast MD Narayan Luu Work Phone: Immunizations Immunization Date Immunization Notes Care Provider Fa cili 02-21-2022 COVID-19 Pfizer (bivalent) Christopher Yoli Other [facility] Other 10-04-2021 COVID-19 Pfizer Christopher Yoli Other [facility] Other 02-11-2021 COVID-19 Vaccine Pfizer - Documentation Purposes Only Jamie Yoli Other [facility] Other 06-23-2020 Do not use COVID-19 Pfizer 2 dose Christopher Yoli Other [facility] Other 06-02-2020 Do not use COVID-19 Pfizer 2 dose Christopher Yoli Other [facility] Other Payers Date Payer Category Payer Self-pay [id number] 1961 Medicare [id number] 2. [id number] 1940 Unknown [id number] 2.16.84 [id number] 1940 Unknown [id number] 2.16.84 0.1.500275.3.579.2.1258 1940 Unknown [id number] 2.16.84 0.1.531057.3.579.2.1259 1940 Unknown [id number] 2.16.84 0.1.199240.3.579.2.1259 1940 Unknown [id number] 2.16.84 0.1.905067.3.579.2.1259 1940 Unknown [id number] 2.16.84 0.1.728104.3.579.2.125 1940 Unknown [id number] 2.16.840 .1.293925.3.579.2.1259 1940 Unknown [id number] 2.16.840 .1.161638.3.579.2.125 1940 Unknown [id number] 2.16.840 .1.647440.3.579.2.1259 1940 Unknown [id number] 2.16.840 .1.787454.3.579.2.1259 Unknown Unknown [id number] 2.16.8 40.1.175463.3.579.2.531 Unknown [id number] 2.16.8 40.1.049017.3.579.2.531 Unknown [id number] 2.16.8 40.1.241678.3.579.2.531 Social History Date Type Detail Facility Sex Assigned At Recommind [facility] Other Start: 1940 Sex Assigned At Male F [facility] Evaluation note 04-08-2023 Note Date & Type Note Facility 04-08-2023 Evaluation note Encounter Date Diagnosis Assessment Notes Mar, Interstitial lung disease (ICD-10 - J84.9) [facility] Other Evaluation note 03-26-2022 Note Date & Type Note Facility 03-26-2022 Evaluation note Encounter Date Diagnosis Assessment Notes Mar, Interstitial lung disease (ICD-10 - J84.9) [facility] Other Evaluation note 10-24-2021 Note Date & Type Note Facility 10-24-2021 Evaluation note Encounter Date Diagnosis Assessment Notes Oct, Interstitial lung disease (ICD-10 - J84.9) [facility] Other Evaluation note Note Date & Type Note Facility Evaluation note No assessment information availa [facility] Work Phone: History general Narrative - [...] History ENT surgery 2002 Hospitalization History surgery [facility] Other History general Narrative - Reported Note [...] surgery 2002 Hospitalization History surgery Hospitalization History [facility] pleurcy 07/2022 [facility] Other Summary Purpose Family History No Family [...] section and content) DATE CREATED AUTHOR 11/04/2017 [facility] DATE CREATED AUTHOR AUTHOR'S ORGANIZ ATION 05/10/2019 [facility] DATE CREATED AUTHOR AUTHOR'S ORGANIZ ATION 09/16/2022 [facility] DATE CREATED AUTHOR AUTHOR'S ORGANIZ ATION 03/27/2023 [facility] DATE CREATED AUTHOR AUTHOR'S ORGANIZ ATION 09/07/[address] [facility] EPIC REASON FOR VISIT (unrecogniz [...] BE BASED ON THE PRIMARY CLINICAL RECORDS. [facility] provides no warranty or guarantee of the accuracy or completeness of information in this document.
[2023-09-08 10:16] VITALS: BP 118/78; PULSE 66; TEMP 36.2; O2SAT 98
[2023-09-08 10:43] VITALS: BP 137/63; BP 149/67; PULSE 64; PULSE 72; O2SAT 95; O2SAT 96
[2023-09-08] MEDS: BUPIVACAINE HCL 0.25% PF 25 MG/10 ML VIAL 3 ML INJ (10:44)
--- NOTE | 2023-09-08 10:55 | P.ON_ITS ---
Date of procedure: 09/08/23 Pre-op diagnosis: cervical spondylosis Post-op diagnosis: same as pre-op Procedure: Right Cervical 2/3, 3/4 medial branch block Under fluoroscopic guidance Solution injected: 2millilitersMarcaine 0.25% Anesthesia :none Immediate complications none Time out process compliant After informed consent obtained from the patient placed in the Prone proposition . area was prepped and draped in a sterile fashion using Cloraprep .25 gauge spinal needle inserted over each of the above mentioned target areas . [place] were directed towards the target under fluoroscopic guidance . after encountering each of the targets , no indication of intravascular intraneuronal or intrathecal needle tip placement. Then 0 .5 to 1 Milliliter was injected at each level. [place] removed postoperatively. patient transferred to recovery in stable condition to be discharged home after meeting criteria Anesthesia: Local Surgeon: Delores Randall Condition: stable
== END 2023-09-08 10:57 | disposition home or self-care (01) ==
LOC: SURGOUT 10:00
PROVIDERS: PCP Family Medicine; Visit Provider Anesthesiology Pain Medicine
DX: M47.812 Spondylosis without myelopathy or radiculopathy, cervical region (principal)
CPT/HCPCS: 64490; 64491

== ENCOUNTER 2023-09-17 11:04 | Outpatient (OUT) | payer MEDICARE, SELFPAY ==
--- NOTE | 2023-09-17 12:07 | P.CN_ITS ---
Consult Note: HPI Data of Consult Patient: known to practice within the last 3 years Requesting Physician: Shasta Joshi NP Primary Care Provider: MARLON LUU Consult Narrative Reason for consult: f/u Narrative: Good Bobby a pleasant 83 year old male presents for evaluation and management of chronic right sided neck and left shoulder pain greater than 3 months unresponsive to HEP greater than 6 weeks, conservative medications. In the past utilized ibuprofen 200mg PRN with mild benefit. Failed prednisone. Pain today - 12/18 at this time, patient has not taken any ibuprofen today. utilizes heat PRN which can worsen his pain. Patient has been prescribed baclofen in the past which helps but causes drowsiness. Recently underwent Right C2-3, 3-4 medial branch block #2 with >80% improvement in pain and functional ability immediately following and days following the procedures. cc:: CC: Shasta Joshi NP Review of Systems ROS Status of ROS 10 or more systems reviewed and unremark able except as noted in history and below [facility] Medical History Osteoarthritis ?M19.90 - Unspecified osteoarthritis, unspecified site (ICD-10) Neck pain ?M54.2 - Cervicalgia (ICD-10) Pleurisy ?R09.1 - Pleurisy (ICD-10) Lung fibrosis ?J84.10 - Pulmonary fibrosis, unspecified (ICD-10) Surgical History S/P hernia repair ?Z98.890 - Other specified postprocedural states (ICD-10) ?Z87.19 - Personal history of other diseases of the digestive system (ICD-10) Status post lung surgery ?Z98.890 - Other specified postprocedural states (ICD-10) H/O lumbosacral spine surgery ?Z98.890 - Other specified postprocedural states (ICD-10) Meds Home Medications and Allergies Home Medications ?Medication ?Instructions ?Recorded ?Confirmed ?Type albuterol sulfate 90 mcg/actuation 1 inh inhalation .everyday PRN 06/02/23 09/08/23 History breath activated powder inhaler shortness of breath or wheezing ibuprofen 200 mg capsule 200 mg PO TID PRN pain 06/02/23 09/08/23 History triamcinolone acetonide 0.1 % 1 applic topical DAILY PRN itching 06/02/2308/11 History topical cream Allergies Allergy/AdvReac Type Severity Reaction Status Date / Time No Known Drug Allergies Allergy Verified 09/08/23 10:18 Exam Constitutional Documenting provider has reviewed patient's vital signs: yes Common normals: no apparent distress, oriented x3, healthy appearing, alert and well nourished General appearance: cooperative HENMT Common normals: normocephalic, hearing grossly normal bilaterally and moist oral mucous membranes Head and scalp: normocephalic Eye Common normals: PERRL Pupil: PERRL Neck & C-Spine Common normals: full ROM General: normal visual inspection Cervical spine: pain with cervical ROM, cervical spine tenderness, paracervical muscle tenderness and paracervical muscle spasm Other: axial neck pain pain increased over right C2-3 C3-4 facet joints no radiculopathy on exam Chest Common normals: inspection of chest normal Respiratory Common normals: normal respiratory effort, no retractions and no use of accessory muscles Extremity Common normals: normal to inspection and full ROM Neuro Common normals: oriented x3, CN's II-XII intact bilaterally, moves all extremities, no focal motor deficits, no sensory deficits noted and deep tendon reflexes 2+ bilaterally Sensorium/orientation: alert Motor exam: strength 5/5 throughout and no movement abnormalities noted Psych Common normals: mental status grossly normal, thought process normal, cooperative, affect normal, speech normal and activity/motor behavior normal Speech: normal speech Thought process: normal thought process Results Additional Findings Additional findings: If on a controlled substance or opioids, I have checked an [place] report on this patient and there are no aberrancies noted in the prescribing history.??If on a controlled substance or opioid a drug screen was completed and reviewed within the last year, and if there has not been a drug screen completed we ordered one today to monitor higher risk, state monitored pain medication use. As part of providing excellent, safe, comprehensive care, the following was completed at our patient's visit: 1. A medication reconciliation and review to ensure accurate knowledge of current/active medications, including asking our patients to inform us about any [id number] medications or herbal remedies/nutritional supplemen ts/alternative remedies. 2. A review to specifically ensure our patients have had annual screening for screening for depression, screening for tobacco use, and screening for unhealthy alcohol use. For concerning screenings had a discussion with the patient, provided patient education, and recommended follow-up with primary care provider when appropriate. If patient noted with a risk of falling, they received education on strength, gait, and balance training to prevent future risk of falling. Assessment and Plan Assessment and Plan (1) Cervical spondylosis: Assessment and Plan: The patient has had over 3 months of moderate to severe neck pain with functional impairment and inadequate response to conservative care including NSAIDS (unless there are contraindication such as concurrent blood thinners), multiple oral or topical pain medications, and home exercise program/physical therapy.? Patient has completed >6 weeks of guided home exercise program and/or formal physical therapy program without relief of their symptoms.? I have reviewed the imaging of the cervical spine and no red flags were identified.? We discussed the risks and benefits of the procedure with the patient, and we are NOT planning on using sedation as outlined in the guidelines from Medicare unless there is a documented reason that sedation would be strongly recommended.?? The procedure will be completed with fluoroscopic guidance.? (2) Myofascial pain: Plan right C2-3 C3-4 facet medial branch thermal RFA under fluoroscopy with IV sedation continue PRN ibuprofen f/u 1 month after procedure
== END 2023-09-17 11:05 | disposition home or self-care (01) ==
LOC: PM 11:04
PROVIDERS: PCP Family Medicine; Visit Provider Nurse Practitioner
DX: M47.812 Spondylosis without myelopathy or radiculopathy, cervical region (principal); M79.18 Myalgia, other site
CPT/HCPCS: G0463

== ENCOUNTER 2023-10-27 07:28 | Day surgery (SDC) | payer MEDICARE, SELFPAY ==
[2023-10-27 07:41] VITALS: BP 148/78; PULSE 73; TEMP 36.3; O2SAT 98
--- NOTE | 2023-10-27 08:11 | PC.NURSE ---
Procedure cancelled due to pt not NPO, had coffee with milk at 430a. Education given regarding safety of why needing to cancel and pt will be contacted by pain clinic to reschedule.
== END 2023-10-27 08:05 | disposition home or self-care (01) ==
LOC: SURGOUT 07:29
PROVIDERS: PCP Family Medicine; Visit Provider Anesthesiology Pain Medicine
DX: M47.812 Spondylosis without myelopathy or radiculopathy, cervical region (principal); Z53.8 Procedure and treatment not carried out for other reasons
CPT/HCPCS: 64633

== ENCOUNTER 2023-11-24 06:45 | Day surgery (SDC) | payer MEDICARE, SELFPAY ==
--- OUTSIDE RECORDS SUMMARY | 2023-11-24 06:48 | XMS_ITS | CCD ---
Author Organization [facility] CliniSyil Care Team Providers Care [employer] Professor Name Role Phone PHYSICIAN, DEFAULT Unavailable Unavailable PHYSICIAN, DEFAULT Unavailable Unavailable PHYSICIAN, DEFAULT Unavailable Unavailable PHYSICIAN, DEFAULT Unavailable Unavailable Jamie Kent MD Narayan Luu Primary Care Provider MD Jamie Kent Attending Provider [phone] MD Narayan Luu Primary Care Provider [phone] MD Jamie Kent Attending Provider BELL, DR MASON Attending Unavailable BELL, DR MASON Consulting Unavailable BELL, DR MASON Primary Care Unavailable BELL, DR MASON Admitting Unavailable ZIEBER, DR ROGERIO Patel Consulting Unavailable Bell, MD Narayan Chung Primary Care Provider MD Jamie Kent Attending Provider MD Narayan Luu Primary Care Provider [phone] MD Jamie Kent Attending Provider INDER OLIVEIRA Attending Unavailable APLING, JESUS B Attending Unavailable APLING, JESUS B Referring Unavailable APLING, JESUS Ledezma Attending Unavailable APLING, JESUS Ledezma Attending Unavailable APLING, JESUS B Referring Unavailable BELLNARAYAN Attending Unavailable APLING, JESUS Ledezma Attending Unavailable APLING, JESUS B Referring Unavailable Katarina SHAH, Monique Buenrostro Attending Unavailable MD Narayan Luu Primary Care Provider [phone] MD Jamie Kent Attending Provider Jamie Kent Admitting Unavaila ble Jamie Kent Attending Unavaila ble Narayan Luu Primary Care Unavailable Jamie Kent Admitting Unavaila Jamie Berry Attending Unavaila Narayan Perez Primary Care Unavailable Jamie Kent Admitting Unavaila Jamie Berry Attending Unavaila Narayan Perez Primary Care Unavailable Jamie Kent Admitting Unavaila Jamie Berry Attending Unavaila ble Narayan Luu Primary Care Unavailable Allergies Allergy Classification Reported Allergen(s) Allergy Type Date of Onset Reaction(s) Facility (3 sources) levoFLOXacin Drug Allergy Unknown [facility] Other (2 sources) Penicillin V Drug Allergy Unknown [facility] Other (2 sources) Penicillin Drug Allergy Unknown [facility] Repository (1 source) levoFLOXacin Drug Allergy [address] [place] [address] Repository (1 source) Penicillins Drug allergy (disorder) [address] [place] [address] Repository Medications Current Medications Medication Drug Class(es) Dates Sig (Normalized) Sig (Original) [id number] 200 actuat albuterol 0.09 mg/actuat metered dose [...] disease, unspecified] Chronic Other lower respiratory disease (4 sources) Interstitial pulmonary disease, unspecified; Translations: [Interstitial pulmonary disease, unspecified] Onset: 10-24-2021 Resolved: 10-24-2021 Chronic Other lower respiratory disease (1 source) Other forms of dyspnea; Translations: [OTHER FORMS OF DYSPNEA] Onset: 09-15-2022 Episodic Residual codes; unclassified (1 source) Localized edema; Translations: [LOCALIZED EDEMA] Onset: 09-15-2022 Episodic Unclassified (1 source) Interstitial pulmonary disease, unspecified; Translations: [Interstitial pulmonary disease, unspecified] Onset: 10-15-2022 Results Test Name Value Interpretation Reference Range [...] wo conon 12-09-2022 CT chest wo con [facility] [place] [address] [place] [address] CT Scan Report Signed Patient: Russell Bobby MR#: [id number] : 1940 Acct:[id number] Age/Sex: 82 / M ADM Date: 12/09/22 Loc: CT Room: Type: [facility] Attending Dr: Jamie Kent MD Copies [...] 04/25/2021. Impression dictated by: Gregorio Parikh Jr., D.ODominick12/09/2022 7:09 PM Dictation Location: [place] [address] Transcribed By: [facility] 12/09/221908 Dictated By: Gregorio Parikh Jr, DO 12/09/22 1635 Signed By: 12/09/221908 Normal [facility] NM STRESS/REST MULTIon 09-09 NM STRESS/REST MULTI Patient: RUSSELL BOBBY Exam Date: 09/09/2022 : 1940 Gender:M Ordering : DR NARAYAN LUU M.D. Admission #: [id number] Family : Order #: [id number] CLICK HERE TO VIEW EXAM RADIOLOGY REPORT [...] Null M.D. on 09/09/2022 at 13:31 Normal [facility] Reminderson 03-23-2019 Reminders - From: Rosalie Roque To: [facility] - Clinical; Rosaile Roque; Sent: 02/25/2019 12:49:09 EDT Show up: 03/01/2019 08:00:00 EDT Subject: scrotal us results Due Date/Time: 03/02/2019 12:48:00 EDT Reminder/Recall Show PRW scrotal US results, Patient may need appt or right Hydrocelectomy [place]- 02/28/19 @ 1:45pm, scrotal US, order faxed From: Rojelio Smith MA ([facility] - Clinical) To: Luis MEADE MD; Sent: 03/01/2019 08:34:22 EDT Show up: 03/01/2019 08:34:00 EDT Subject: RE: scrotal us results Results scanned into chart. Please review Scoral US report done yesterday at [place]. (black menu- documentation) From: Luis MEADE MD To: [facility] - Clinical; Sent: 03/01/2019 11:46:26 EDT Show up: 03/01/2019 11:46:00 EDT Subject: RE: scrotal us results already saw this pw. Pt was notified of results. scheduled for Hydrocelectomy on 03/31/19. Normal [facility] Vital Signs Date Time Vital Sign Value Performing Clinician Lisa lennon 04-08-2023 09:45-0500 Body height 167.64 cm Jamie Kent Other [facility] Other 04-08-2023 09:45-0500 Body mass index (BMI) [Ratio] 28.24 kg/m2 Jamie Kent Other [facility] Other 04-08-2023 09:45-0500 Body temperature 96.4 [degF] Jamie Kent Other [facility] Other 04-08-2023 09:45-0500 Body weight 79.38 kg Jamie Yoli Other [facility] Other 04-08-2023 09:45-0500 Diastolic blood pressure 74 mm[Hg] Christkaraner Yoli Other [facility] Other 04-08-2023 09:45-0500 Respiratory rate 20 /min Christkaraner Yoli Other [facility] Other 04-08-2023 09:45-0500 SaO2% (BldA) [Mass fraction] 98 % Bober Yoli Other [facility] Other 04-08-2023 09:45-0500 Systolic blood pressure 122 mm[Hg] Bober Yoli Other [facility] Other 03-26-2022 12:45-0500 Body height 167.64 cm Christkaraner Yoli Other [facility] Other 03-26-2022 12:45-0500 Body mass index (BMI) [Ratio] 28.08 kg/m2 Christkaraner Yoli Other [facility] Other 03-26-2022 12:45-0500 Body temperature 97.1 [degF] Bober Yoli Other [facility] Other 03-26-2022 12:45-0500 Body weight 78.93 kg Christkaraner Yoli Other [facility] Other 03-26-2022 12:45-0500 Diastolic blood pressure 73 mm[Hg] Bober Yoli Other [facility] Other 03-26-2022 12:45-0500 Respiratory rate 20 /min Christkaraner Yoli Other [facility] Other 03-26-2022 12:45-0500 Systolic blood pressure 124 mm[Hg] Christkaraner Yoli Other [facility] Other 10-24-2021 12:45-0400 Body height 167.64 cm Bober Oyli Other [facility] Other 10-24-2021 12:45-0400 Body mass index (BMI) [Ratio] 29.05 kg/m2 Bober Yoli Other [facility] Other 10-24-2021 12:45-0400 Body temperature 97.4 [degF] Bober Yoli Other [facility] Other 10-24-2021 12:45-0400 Body weight 81.65 kg Bober Yoli Other [facility] Other 10-24-2021 12:45-0400 Diastolic blood pressure 80 mm[Hg] Bober Yoli Other [facility] Other 10-24-2021 12:45-0400 Respiratory rate 20 /min Bober Yoli Other [facility] Other 10-24-2021 12:45-0400 SaO2% (BldA) [Mass fraction] 94 % Bober Yoli Other [facility] Other 10-24-2021 12:45-0400 Systolic blood pressure 129 mm[Hg] Jamie Kent Other [facility] Other Encounters Encounter Date Encounter Type Care Provider Facility Start: 09-10-2023 Non-patient / Non-visit MD Narayan Luu Work Phone: [facility] Work Phone: Start: 09-10-2023 End: 09-10-2023 ambulatory Jamie Kent Facility:[facility] Start: 09-10-2023 End: 09-10-2023 ambulatory MD Narayan Luu Work Phone: [facility] Work Phone: Start: 09-10-2023 End: 09-10-2023 Patient encounter procedure MD Narayan Luu Work Phone: [facility] Work Phone: Start: 09-02-2023 End: 09-03-2023 ambulatory JESUS B APLING Not Available Start: 08-19-2023 End: 08-19-2023 ambulatory JESUS B APLING Not Available Start: 08-03-2023 End: 08-04-2023 ambulatory Monique Bray MD Facility:[facility] Start: 07-20-2023 End: 07-20-2023 ambulatory JESUS B APLING Not Available Start: 05-27-2023 End: 05-28-2023 ambulatory JESUS B APLING Not Available Start: 05-07-2023 End: 05-07-2023 ambulatory INDER OLIVEIRA Not Available Start: 04-22-2023 End: 04-23-2023 ambulatory JESUS B APLING Not Available Start: 04-13-2023 End: 04-13-2023 ambulatory NARAYAN LUU Not Available Start: 04-08-2023 End: 04-08-2023 ambulatory Jamie Kent Other [facility] Other Start: 04-08-2023 Office outpatient visit 25 minutes Jamie Kent [facility] Start: 03-18-2023 End: 03-18-2023 ambulatory Jamie Kent Facility:[facility] Start: 03-18-2023 End: 03-18-2023 ambulatory MD Narayan Luu Work Phone: [facility] Work Phone: Start: 03-18-2023 End: 03-18-2023 Patient encounter procedure MD Narayan Luu Work Phone: [facility] Work Phone: Start: 12-09-2022 End: 12-09-2022 ambulatory Jamie Kent Facility:[facility] Start: 12-09-2022 End: 12-09-2022 ambulatory MD Narayan Luu Work Phone: [facility] Work Phone: Start: 12-09-2022 End: 12-09-2022 Patient encounter procedure MD Narayan Luu Work Phone: [facility]-CT Scan [place] Work Phone: Start: 10-15-2022 End: 10-15-2022 ambulatory Jamie Kent Facility:[facility] Start: 10-15-2022 End: 10-15-2022 ambulatory MD Narayan Luu Work Phone: [facility] Work Phone: Start: 10-15-2022 End: 10-15-2022 Patient encounter procedure MD Narayan Luu Work Phone: [facility] Work Phone: Start: 09-09-2022 End: 09-10-[address] NARAYAN LUU Facility: Start: 03-26-2022 End: 03-26-2022 ambulatory Jamie Kent Other [facility] Other Start: 03-26-2022 Office outpatient visit 15 minutes Christopher Yoli [facility] Start: 03-18-2022 End: 03-18-2022 ambulatory MD Narayan Luu Work Phone: [facility] Work Phone: Start: 03-18-2022 End: 03-18-2022 Patient encounter procedure MD Narayan Luu Work Phone: [facility] Start: 11-06-2021 End: 11-06-2021 Patient encounter procedure MD Narayan Luu Work Phone: [facility] Start: 10-24-2021 End: 10-24-2021 ambulatory Jamie Kent Other [facility] Other Start: 10-24-2021 Office outpatient visit 25 minutes Jamie Kent [facility] Start: 12-08-2016 End: 12-09-2016 Ambulatory DEFAULT PHYSICIAN Facility:[facility] Start: 11-20-2016 End: 11-21-2016 Ambulatory DEFAULT PHYSICIAN Facility:[facility] Procedures Date Procedure Procedure Detail Performing Clinician Start: 12-09-2022 CT of chest without contrast MD Narayan Luu Work Phone: Immunizations Immunization Date Immunization Notes Care Provider [facility] 02-21-2022 COVID-19 Pfizer (bivalent) Christopher Yoli Other [facility] 10-04-2021 COVID-19 Pfizer Christopher Yoli Other [facility] 02-11-2021 COVID-19 Vaccine Pfi zer - Documentation Purposes Only Christopher Yoli Other [facility] 06-23-2020 Do not use COVID-19 Pfizer 2 dose Christopher Yoli Other [facility] 06-02-2020 Do not use COVID-19 Pfizer 2 dose Christopher Yoli Other [facility] Payers Date Payer Category Payer Private Health Insurance 2022 Self-pay [id number] 1961 Medicare [id number] 2. [id number] 1940 Unknown [id number] 2.16.84 [id number] 1940 Unknown [id number] 2.16.84 0.1.582856.3.579.2.1259 1940 Unknown [id number] 2.16.84 0.1.937464.3.579.2.1259 1940 Unknown [id number] 2.16.84 0.1.231395.3.579.2.1259 1940 Unknown [id number] 2.16.84 0.1.255586.3.579.2.1259 1940 Unknown [id number] 2.16.84 0.1.461929.3.579.2.1259 1940 Unknown [id number] 2.16.840 .1.446814.3.579.2.1259 1940 Unknown [id number] 2.16.840 .1.710249.3.579.2.1259 1940 Unknown [id number] 2.16.840 .1.361593.3.579.2.1259 1940 Unknown [id number] 2.16.840 .1.350256.3.579.2.1259 1940 Unknown [id number] 2.16. 840.1.759870.3.579.2.196 Unknown Unknown [id number] 2.16.8 40.1.346251.3.579.2.531 Unknown [id number] 2.16.8 40.1.507592.3.579.2.531 Unknown [id number] 2.16.8 40.1.974590.3.579.2.531 Unknown [id number] 2.16.8 40.1.335881.3.579.2.531 Social History Date Type Detail Facility Sex Assigned At [facility] Other Start: 1940 Sex Assigned At Male F [facility] Start: 09[facility]10-2023 [facility] Evaluation note 04-08-2023 Note Date & Type Note Facility 04-08-2023 Evaluation note Encounter Date Diagnosis Assessment Notes Mar, Interstitial lung disease (ICD-10 - J84.9) [facility] Other Evaluation note 03-26-2022 Note Date & Type Note Facility 03-26-2022 Evaluation note Encounter Date Diagnosis Assessment Notes Mar, Interstitial lung disease (ICD-10 - J84.9) [facility] Other Evaluation note 10-24-2021 Note Date & Type Note Facility 10-24-2021 Evaluation note Encounter Date Diagnosis Assessment Notes Oct, Interstitial lung disease (ICD-10 - J84.9) [facility] Other Evaluation note Note Date & Type Note Facility Evaluation note No assessment information availa [facility] Work Phone: History general Narrative - Reported Note Date & Type Note Facility History general Narrative - Reported Type Medical History lt. hip bursitis Medical History sinusitis Medical History asthma Medical History diverticulosis Medical History pulmonary fibrosis Medical History pneumonia Medical History interstitial lung disease Surgical History sinus surgery Surgical History back surgery Surgical History kyphoplasty 2007 Surgical History lumbar back 1994 Surgical History trigger thumb left 2013 Surgical History RFA inj. 2019 Surgical History hydrocele repair rt. 2019 Surgical History ENT surgery 2002 Hospitalization History surgery [facility] Other History general Narrative - Reported Note Date & Type Note Facility History general Narrative - Reported Type Medical History lt. hip bursitis Medical History sinusitis Medical History asthma Medical History diverticulosis Medical History pulmonary fibrosis Medical History pneumonia Medical History interstitial lung disease Surgical History sinus surgery Surgical History back surgery Surgical History kyphoplasty 2007 Surgical History lumbar back 1994 Surgical History trigger thumb left 2013 Surgical History RFA inj. 2019 Surgical History hydrocele repair rt. 2019 Surgical History ENT surgery 2002 Hospitalization History surgery Hospitalization History [facility] 07/2022 [facility] Other Summary Purpose Family History No Family History Records Found Relationship Condition Age at Onset Recorded Date/T thmoas father Heart disease Unknown Unknown Not Specified Glaucoma Unknown Advance Directives No Advanced Directives Records Found [...] section and content) DATE CREATED AUTHOR 11/04/2017 [facility] DATE CREATED AUTHOR AUTHOR'S ORGANIZ ATION 05/10/2019 [facility] DATE CREATED AUTHOR AUTHOR'S ORGANIZ ATION 09/16/2022 [facility] DATE CREATED AUTHOR AUTHOR'S ORGANIZ ATION 09/07/2023 [facility] DATE CREATED AUTHOR AUTHOR'S ORGANIZ ATION 09/15/2023 [facility] DATE CREATED AUTHOR AUTHOR'S ORGANIZ ATION 09/19/2023 [facility] REASON FOR VISIT (unrecogniz ed section and content) 3 mo f/u ILD5 mo f/u ILD3 mo f/u ILD Care Teams (unrecognized sec tion and content) Team Status: Active Member Role Status Nataliia Luu MD Primary Care Provider Active Team Status: Inactive Member Role Status Nataliia Luu MD Primary Care Provider Active Jamie Kent MD Attending Provider Active Team Status: Inactive Member Role Status Nataliia Luu MD Primary Care Provider Active S tart: September 10, 2023 End: September 10, 2023 Jamie Kent MD Attending Provider Active Start: September 10, 2023 End: September 10, 2023 Team Status: Active Member Role Status Nataliia Luu MD Primary Care Provider Active S tart: September 10, 2023 Jamie Kent MD Attending Val braden, Other Provider Active Start: September 10, 2023 Goals (unrecognized section and content) Goals may [...] BE BASED ON THE PRIMARY CLINICAL RECORDS. [employer] [facility]. provides no warranty or guarantee of the accuracy or completeness of information in this document.
[2023-11-24 07:08] VITALS: BP 120/74; PULSE 71; TEMP 36.3; O2SAT 97
[2023-11-24] MEDS: 0.9 % SODIUM CHLORIDE 500 ML IV (07:14)
[2023-11-24] MEDS: BUPIVACAINE HCL 0.25% PF 25 MG/10 ML VIAL 4 ML INJ (07:54)
[2023-11-24] MEDS: LIDOCAINE HCL 2% 400 MG/20 ML MDV 6 ML INJ (07:54)
[2023-11-24] MEDS: METHYLPREDNISOLONE ACETATE 40 MG/ML VIAL INJ (07:54)
[2023-11-24 07:59] VITALS: BP 108/67; PULSE 61; TEMP 36.3; O2SAT 98
[2023-11-24 08:03] VITALS: BP 105/59; PULSE 72; TEMP 36.3; O2SAT 98
--- NOTE | 2023-11-24 08:25 | W.PM.PROCNOT ---
Date of procedure: 11/24/23 Pre-op diagnosis: Cervical spondylosis Post-op diagnosis: same as pre-op Procedure: Right Cervical 2/3, 3/4 Radiofrequency ablation Under fluoroscopic guidance Rhizotomy was created using radio frequency ablation at 80?C for 90 seconds 1 to 2 lesions created at each site. Post lesioning injection of 2 mL each of 0.25% Marcaine and 2% lidocaine with Depo-medrol 40mg. 0.5 to 1 mL injected at each site IV in place yes If Intravenous fluids: NS at KVO Anesthesia local 2% lidocaine for Anesthesia Other: MAC Timeout process compliant After informed consent obtained.Patient brought to the procedure room placed in the prone position skin overlying the area was prepped and draped in a sterile fashion using betadine. 25 gauge needle was used to create a skin wheal over each of the targeted areas utilizing 2% lidocaine. A rhizotomy needle with a 10 mm active tip was inserted over each of the anesthetized areas and directed towards each of the medial branches accomplished under fluoroscopic guidance. after encountering the same we had positive sensory stimulation, negative motor stimulation was noted. lesions were then created. Post lesioning, steroid solution was injected needles removed. Patient was transferred to recovery room in stable condition to be discharged home after meeting criteria. Anesthesia: MAC Surgeon: Delores Randall Condition: stable
== END 2023-11-24 08:30 | disposition home or self-care (01) ==
LOC: SURGOUT 06:46
PROVIDERS: PCP Family Medicine; Visit Provider Anesthesiology Pain Medicine
DX: M47.812 Spondylosis without myelopathy or radiculopathy, cervical region (principal)
CPT/HCPCS: 64633; 64634; J0665; J1010; J2704

== ENCOUNTER 2023-12-24 10:27 | Outpatient (OUT) | payer MEDICARE, SELFPAY ==
--- OUTSIDE RECORDS SUMMARY | 2023-12-24 10:40 | XMS_ITS | CCD ---
Author Organization [facility] CliniSymo Care Team Providers Care Mail Caller Name Role Phone PHYSICIAN, DEFAULT Unavailable Unavailable [...] Bell, MD Narayan Chung Primary Care Provider [phone] MD Jamie Kent Attending Provider MD Narayan Luu Primary Care Provider [phone] MD Jamie Kent Attending Provider [phone] INDER OLIVEIRA Attending Unavailable APLING, JESUS B Attending Unavailable APLING, JESUS B Referring Unavailable APLING, JESUS Ledezma Attending Unavailable APLING, JESUS Ledezma Attending Unavailable APLING, JESUS B Referring Unavailable BELLNARAYAN Attending Unavailable APLING, JESUS Ledezma Attending Unavailable APLING, JESUS B Referring Unavailable Katarina SHAH, Monique Buenrostro Attending Unavailable MD Narayan Luu Primary Care Provider [phone] MD Jamie Kent Attending Provider Jamie Kent [...] Facility (3 sources) levoFLOXacin Drug Allergy Unknown [facility] Other (2 sources) Penicillin V Drug Allergy Unknown [facility] Other (2 sources) Penicillin Drug Allergy Unknown [facility] Repository (1 source) levoFLOXacin Drug Allergy [address] [place] [address] Repository (1 source) Penicillins Drug allergy (disorder) [address] [place] [address] Repository Medications Current Medications Medication Drug Class(es) Dates Sig (Normalized) Sig (Original) [id number] 200 actuat albuterol 0.09 mg/actuat metered dose [...] wo conon 12-09-2022 CT chest wo con [facility] [address] [place] [address] CT Scan Report Signed Patient: Russell Bobby MR#: [id number] : 1940 Acct:[id number] Age/Sex: 82 / M ADM Date: 12/09/22 Loc: CT Room: Type: [facility] Attending Dr: Jamie Kent MD Copies [...] Parikh Jr., D.ODominick12/09/2022 7:09 PM Dictation Location: [place] [address] Transcribed By: [facility] 12/09/221908 Dictated By: Gregorio Parikh Jr, DO 12/09/22 1635 Signed By: 12/09/221908 Normal [facility] NM STRESS/REST MULTIon 09-09 NM STRESS/REST MULTI Patient: RUSSELL BOBBY Exam Date: 09/09/2022 : 1940 Gender:M Ordering : DR NARAYAN LUU M.D. Admission #: [id number] Family : Order #: [id number] CLICK HERE TO VIEW EXAM RADIOLOGY REPORT [...] Null M.D. on 09/09/2022 at 13:31 Normal [facility] Reminderson 03-23-2019 Reminders - From: Rosalie Roque To: [facility] - Clinical; Rosalie Roque; Sent: 02/25/2019 12:49:09 EDT Show up: 03/01/2019 08:00:00 EDT Subject: scrotal us results Due Date/Time: 03/02/2019 12:48:00 EDT Reminder/Recall Show PRW scrotal US results, Patient may need appt or right Hydrocelectomy Dickinson- 02/28/19 @ 1:45pm, scrotal US, order faxed From: Rojelio Smith MA ([facility] - Clinical) To: Luis MEADE MD; Sent: 03/01/2019 08:34:22 EDT Show up: 03/01/2019 08:34:00 EDT Subject: RE: scrotal us results Results scanned into chart. Please review Scoral US report done yesterday at [place]. (black menu- documentation) From: Luis MEADE MD To: [facility] - Clinical; Sent: 03/01/2019 11:46:26 EDT Show up: 03/01/2019 11:46:00 EDT Subject: RE: scrotal us results already saw this pw. Pt was notified of results. scheduled for Hydrocelectomy on 03/31/19. Normal [facility] Vital Signs Date Time Vital Sign Value Performing Clinician Lisa lennon 04-08-2023 09:45-0500 Body height 167.64 cm Jamie Kent Other [facility] Other 04-08-2023 09:45-0500 Body mass index (BMI) [Ratio] 28.24 kg/m2 Jamie Kent Other [facility] Other 04-08-2023 09:45-0500 Body temperature 96.4 [degF] Jamie Kent Other [facility] Other 04-08-2023 09:45-0500 Body weight 79.38 kg Jamie Yoli Other [facility] Other 04-08-2023 09:45-0500 Diastolic blood pressure 74 mm[Hg] Christkaraner Yoli Other [facility] Other 04-08-2023 09:45-0500 Respiratory rate 20 /min Christkaraner Yoli Other [facility] Other 04-08-2023 09:45-0500 SaO2% (BldA) [Mass fraction] 98 % Bober Yoli Other [facility] Other 04-08-2023 09:45-0500 Systolic blood pressure 122 mm[Hg] Bober Yoli Other [facility] Other 03-26-2022 12:45-0500 Body height 167.64 cm Christkaraner Yoli Other [facility] Other 03-26-2022 12:45-0500 Body mass index (BMI) [Ratio] 28.08 kg/m2 Christkaraner Yoli Other [facility] Other 03-26-2022 12:45-0500 Body temperature 97.1 [degF] Bober Yoli Other [facility] Other 03-26-2022 12:45-0500 Body weight 78.93 kg Christkaraner Yoli Other [facility] Other 03-26-2022 12:45-0500 Diastolic blood pressure 73 mm[Hg] Bober Yoli Other [facility] Other 03-26-2022 12:45-0500 Respiratory rate 20 /min Christkaraner Yoli Other [facility] Other 03-26-2022 12:45-0500 Systolic blood pressure 124 mm[Hg] Christkaraner Yoli Other [facility] Other 10-24-2021 12:45-0400 Body height 167.64 cm Bober Yoli Other [facility] Other 10-24-2021 12:45-0400 Body mass index (BMI) [Ratio] 29.05 kg/m2 Bober Yoli Other [facility] Other 10-24-2021 12:45-0400 Body temperature 97.4 [degF] Bober Yoli Other [facility] Other 10-24-2021 12:45-0400 Body weight 81.65 kg Bober Yoli Other [facility] Other 10-24-2021 12:45-0400 Diastolic blood pressure 80 mm[Hg] Bober Yoli Other [facility] Other 10-24-2021 12:45-0400 Respiratory rate 20 /min Bober Yoli Other [facility] Other 10-24-2021 12:45-0400 SaO2% (BldA) [Mass fraction] 94 % Bober Yoli Other [facility] Other 10-24-2021 12:45-0400 Systolic blood pressure 129 mm[Hg] Jamie Kent Other [facility] Other Encounters Encounter Date Encounter Type Care Provider Facility Start: 09-10-2023 Non-patient / Non-visit MD Narayan Luu Work Phone: [facility] Work Phone: Start: 09-10-2023 End: 09-10-2023 ambulatory Jamie Kent Facility:[facility] Start: 09-10-2023 End: 09-10-2023 ambulatory MD Narayan Luu Work Phone: [facility] Work Phone: Start: 09-10-2023 End: 09-10-2023 Patient encounter procedure MD Narayan Luu Work Phone: [facility]-Respiratory Therapy Work Phone: Start: 09-02-2023 End: 09-03-2023 ambulatory JESUS B APLING Not Available Start: 08-19-2023 End: 08-19-2023 ambulatory JESUS B APLING Not Available Start: 08-03-2023 End: 08-04-2023 ambulatory Monique Bray MD Facility:[facility] Start: 07-20-2023 End: 07-20-2023 ambulatory JESUS B APLING Not Available Start: 05-27-2023 End: 05-28-2023 ambulatory JESUS B APLING Not Available Start: 05-07-2023 End: 05-07-2023 ambulatory INDER OLIVEIRA Not Available Start: 04-22-2023 End: 04-23-2023 ambulatory JESUS B APLING Not Available Start: 04-13-2023 End: 04-13-2023 ambulatory NARAYAN LUU Not Available Start: 04-08-2023 End: 04-08-2023 ambulatory Jamie Kent Other [facility] Other Start: 04-08-2023 Office outpatient visit 25 minutes Jamie Kent [facility] Start: 03-18-2023 End: 03-18-2023 ambulatory Jamie Kent Facility:[facility] Start: 03-18-2023 End: 03-18-2023 ambulatory MD Narayan Luu Work Phone: [facility] Work Phone: Start: 03-18-2023 End: 03-18-2023 Patient encounter procedure MD Narayan Luu Work Phone: [facility]Respiratory Therapy Work Phone: Start: 12-09-2022 End: 12-09-2022 ambulatory Jamie Kent Facility:[facility] Start: 12-09-2022 End: 12-09-2022 ambulatory MD Narayan Luu Work Phone: [facility] Work Phone: Start: 12-09-2022 End: 12-09-2022 Patient encounter procedure MD Narayan Luu Work Phone: [facility]-CT Scan [facility] Work Phone: Start: 10-15-2022 End: 10-15-2022 ambulatory Jamie Kent Facility:[facility] Start: 10-15-2022 End: 10-15-2022 ambulatory MD Narayan Luu Work Phone: [facility] Work Phone: Start: 10-15-2022 End: 10-15-2022 Patient encounter procedure MD Narayan Luu Work Phone: [facility]Res[facility] Therapy Work Phone: Start: 09-09-2022 End: 09-10-[address] NARAYAN LUU Facility: Start: 03-26-2022 End: 03-26-2022 ambulatory Jamie Kent Other [facility] Other Start: 03-26-2022 Office outpatient visit 15 minutes Christopher Yoli [facility] Start: 03-18-2022 End: 03-18-2022 ambulatory MD Narayan Luu Work Phone: [facility] Work Phone: Start: 03-18-2022 End: 03-18-2022 Patient encounter procedure MD Narayan Luu Work Phone: [facility]Respiratory Therapy Start: 11-06-2021 End: 11-06-2021 Patient encounter procedure MD Narayan Luu Work Phone: [facility]Res[facility] Therapy Start: 10-24-2021 End: 10-24-2021 ambulatory Jamie Kent Other [facility] Other Start: 10-24-2021 Office outpatient visit 25 minutes Jamie Kent [facility] Start: 12-08-2016 End: 12-09-2016 Ambulatory DEFAULT PHYSICIAN Facility:[facility] Start: 11-20-2016 End: 11-21-2016 Ambulatory DEFAULT PHYSICIAN Facility:[facility] Procedures Date Procedure Procedure Detail Performing Clinician Start: 12-09-2022 CT of chest without contrast MD Narayan Luu Work Phone: Immunizations Immunization Date Immunization Notes Care Provider [facility] 02-21-2022 COVID-19 Pfizer (bivalent) Christopher Yoli Other [facility] 10-04-2021 COVID-19 Pfizer Christopher Yoli Other [facility] 02-11-2021 COVID-19 Vaccine Pfi zer - Documentation Purposes Only Christopher Yoli Other [facility] 06-23-2020 Do not use COVID-19 Pfizer 2 dose Christopher Yoli Other [facility] 06-02-2020 Do not use COVID-19 Pfizer 2 dose Christopher Yoli Other [facility] Payers Date Payer Category Payer Private Health Insurance 2022 Self-pay [id number] 1961 Medicare [id number] 2. [id number] 1940 Unknown [id number] 2.16.84 [id number] 1940 Unknown [id number] 2.16.84 0.1.874857.3.579.2.1259 1940 Unknown [id number] 2.16.84 0.1.177109.3.579.2.1259 1940 Unknown [id number] 2.16.84 0.1.159442.3.579.2.1259 1940 Unknown [id number] 2.16.84 0.1.392764.3.579.2.1259 1940 Unknown [id number] 2.16.84 0.1.241038.3.579.2.1259 1940 Unknown [id number] 2.16.840 .1.943022.3.579.2.1259 1940 Unknown [id number] 2.16.840 .1.234865.3.579.2.1259 1940 Unknown [id number] 2.16.840 .1.766767.3.579.2.1259 1940 Unknown [id number] 2.16.840 .1.466951.3.579.2.1259 1940 Unknown [id number] 2.16. 840.1.458874.3.579.2.196 Unknown Unknown [id number] 2.16.8 40.1.584183.3.579.2.531 Unknown [id number] 2.16.8 40.1.446672.3.579.2.531 Unknown [id number] 2.16.8 40.1.421692.3.579.2.531 Unknown [id number] 2.16.8 40.1.539408.3.579.2.531 Social History Date Type Detail Facility Sex Assigned At [facility] Other Start: 1940 Sex Assigned At Male F [facility] Start: 09-10-2023 [facility] Evaluation note 04-08-2023 Note Date & Type Note Facility 04-08-2023 Evaluation note Encounter Date Diagnosis Assessment Notes Mar, Interstitial lung disease (ICD-10 - J84.9) [facility] Other Evaluation note 03-26-2022 Note Date & Type Note Facility 03-26-2022 Evaluation note Encounter Date Diagnosis Assessment Notes Mar, Interstitial lung disease (ICD-10 - J84.9) [facility] Other Evaluation note 10-24-2021 Note Date & Type Note Facility 10-24-2021 Evaluation note Encounter Date Diagnosis Assessment Notes Oct, Interstitial lung disease (ICD-10 - J84.9) [facility] Other Evaluation note Note Date & Type Note Facility Evaluation note No assessment information availa [facility] Work Phone: History general Narrative - Reported [...] History ENT surgery 2002 Hospitalization History surgery [facility] Other History general Narrative - Reported Note [...] surgery 2002 Hospitalization History surgery Hospitalization History [facility] 07/2022 [facility] Other Summary Purpose Family History No Family History Records Found Relationship Condition Age at Onset Recorded Date/T thomas father Heart disease Unknown Unknown Not Specified [...] section and content) DATE CREATED AUTHOR 11/04/2017 [facility] DATE CREATED AUTHOR AUTHOR'S ORGANIZ ATION 05/10/2019 [facility] DATE CREATED AUTHOR AUTHOR'S ORGANIZ ATION 09/16/2022 [facility] DATE CREATED AUTHOR AUTHOR'S ORGANIZ ATION 09/07/2023 [facility] DATE CREATED AUTHOR AUTHOR'S ORGANIZ ATION 09/15/2023 [facility] DATE CREATED AUTHOR AUTHOR'S ORGANIZ ATION 09/19/2023 [facility] REASON FOR VISIT (unrecogniz ed [...] BE BASED ON THE PRIMARY CLINICAL RECORDS. [facility]. provides no warranty or guarantee of the accuracy or completeness of information in this document.
--- NOTE | 2023-12-24 11:25 | PM.CN ---
Consult Note: HPI Data of Consult Patient: known to practice within the last 3 years Requesting Physician: Shasta Joshi NP Primary Care Provider: MARLON LUU Consult Narrative Reason for consult: f/u Narrative: Good Bobby a pleasant 83 year old male presents for evaluation and management of chronic right sided neck and left shoulder pain greater than 3 months unresponsive to HEP greater than 6 weeks, conservative medications. In the past utilized ibuprofen 200mg PRN with mild benefit. Failed prednisone. utilizes heat PRN which can worsen his pain. Patient has been prescribed baclofen in the past which helps but causes drowsiness. Recently underwent Right C2-3, 3-4 medial branch thermal RFA with 100% improvement in axial neck pain. Patient brought a copy of pain management notes from his provider in [place] which shows patient underwent right L3/4/5 RFA early 2021, patient reports >80% improvement greater than 12 months. Patient would like to discuss repeating RFAs for axial low back pain. Pain today 8/10 in right low back increasing with activity, standing and walking. denies numbness tingling and weakness. cc:: CC: Shasta Joshi NP Review of Systems ROS Status of ROS 10 or more systems reviewed and unremarkable except as noted in history and below Musculoskeletal Reports: back pain PFSH PFSH Medical History Osteoarthritis ?M19.90 - Unspecified osteoarthritis, unspecified site (ICD-10) Neck pain ?M54.2 - Cervicalgia (ICD-10) Pleurisy ?R09.1 - Pleurisy (ICD-10) Lung fibrosis ?J84.10 - Pulmonary fibrosis, unspecified (ICD-10) Surgical History S/P hernia repair ?Z98.890 - Other specified postprocedural states (ICD-10) ?Z87.19 - Personal history of other diseases of the digestive system (ICD-10) Status post lung surgery ?Z98.890 - Other specified postprocedural states (ICD-10) H/O lumbosacral spine surgery ?Z98.890 - Other specified postprocedural states (ICD-10) Meds Home Medications and Allergies Home Medications ?Medication ?Instructions ?Recorded ?Confirmed ?Type albuterol sulfate 90 mcg/actuation 1 inh inhalation .everyday PRN 06/02/23 11/24/23 History breath activated powder inhaler shortness of breath or wheezing ibuprofen 200 mg capsule 200 mg PO TID PRN pain 06/02/23 11/24/23 History triamcinolone acetonide 0.1 % 1 applic topical DAILY PRN itching 06/02/23 11/24/23 History topical cream Allergies Allergy/AdvReac Type Severity Reaction Status Date / Time No Known Drug Allergies Allergy Verified 11/24/23 07:06 Exam Constitutional Documenting provider has reviewed patient's vital signs: yes Common normals: no apparent distress, oriented x3, healthy appearing, alert and well nourished General appearance: cooperative HENMT Common normals: normocephalic, hearing grossly normal bilaterally and moist oral mucous membranes Head and scalp: normocephalic Eye Common normals: PERRL Pupil: PERRL Neck & C-Spine Common normals: full ROM General: normal visual inspection Cervical spine: cervical ROM normal and paracervical muscle tenderness Other: negative spurlings sensation intact BLE improvement in pain with ROM Chest Common normals: inspection of chest normal Respiratory Common normals: normal respiratory effort, no retractions and no use of accessory muscles Back & Pelvis Lumbar spine/lower back: ROM limited, pain with ROM, lumbar spinal tenderness and straight leg raise negative bilaterally Other: right sided facet loading pain, negative radiculopathy strength 5/5 in BLE Extremity Common normals: normal to inspection and full ROM Neuro Common normals: oriented x3, CN's II-XII intact bilaterally, moves all extremities, no focal motor deficits, no sensory deficits noted and deep tendon reflexes 2+ bilaterally Sensorium/orientation: alert Motor exam: strength 5/5 throughout and no movement abnormalities noted Psych Common normals: mental status grossly normal, thought process normal, cooperative, affect normal, speech normal and activity/motor behavior normal Speech: normal speech Thought process: normal thought process Results Additional Findings Additional findings: If on a controlled substance or opioids, I have checked an [place] report on this patient and there are no aberrancies noted in the prescribing history.??If on a controlled substance or opioid a drug screen was completed and reviewed within the last year, and if there has not been a drug screen completed we ordered one today to monitor higher risk, state monitored pain medication use. As part of providing excellent, safe, comprehensive care, the following was completed at our patient's visit: 1. A medication reconciliation and review to ensure accurate knowledge of current/active medications, including asking our patients to inform us about any [id number] medications or herbal remedies/nutritional supplements/alternative remedies. 2. A review to specifically ensure our patients have had annual screening for screening for depression, screening for tobacco use, and screening for unhealthy alcohol use. For concerning screenings had a discussion with the patient, provided patient education, and recommended follow-up with primary care provider when appropriate. If patient noted with a risk of falling, they received education on strength, gait, and balance training to prevent future risk of falling. Assessment and Plan Assessment and Plan (1) Cervical spondylosis: Assessment and Plan: 100% improvement ongoing (2) Myofascial pain: (3) Lumbar spondylosis: Plan right L4/5 L5/S1 facet medial branch block x2 working towards RFA continue HEP as tolerated continue current medications f/u after each injection
== END 2023-12-24 10:28 | disposition home or self-care (01) ==
LOC: PM 10:28
PROVIDERS: PCP Family Medicine; Visit Provider Nurse Practitioner
DX: M47.812 Spondylosis without myelopathy or radiculopathy, cervical region (principal); M79.18 Myalgia, other site; M47.816 Spondylosis without myelopathy or radiculopathy, lumbar region
CPT/HCPCS: G0463

== ENCOUNTER 2024-01-26 08:02 | Day surgery (SDC) | payer MEDICARE, SELFPAY ==
--- OUTSIDE RECORDS SUMMARY | 2024-01-26 08:21 | XMS_ITS | CCD ---
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 Name Role Phone PHYSICIAN, DEFAULT Unavailable Unavailable [...] Unavailable ZIEBER, DR ROGERIO Patel Consulting Unavailable MD Narayan Luu Primary Care Provider MD Jamie Kent Attending Provider MD Narayan Luu Primary Care Provider MD Jamie Kent Attending Provider Katarina SHAH, Monique Buenrostro Attending Unavailable MD Narayan Luu Primary Care Provider MD Jamie eKnt Attending Provider Jamie Kent Admitting Unavaila ble Jamie Kent Attending Unavaila ble Narayan Luu Primary Care Unavailable Jamie Kent Admitting Unavaila ble Jamie Kent Attending Unavaila ble Narayan Luu Primary Care Unavailable Jamie Kent Admitting Unavaila ble Jamie Kent Attending Unavaila ble [place], Rugen M Primary Care Unavailable Jamie Kent Admitting UnavailJamie Asencio Attending UnavailNarayan Palmer Primary Care Unavailable NARAYAN LUU Primary Care Physician Luis MEADE Attending Unavailable INDER OLIVEIRA Attending Unavailable APLING, JESUS Ledezma Attending Unavailable APLING, JESUS Ledezma Referring Unavailable APLING, JESUS Ledezma Attending Unavailable APLING, JESUS Ledezma Attending Unavailable APLING, JESUS Ledezma Referring Unavailable NARAYAN LUU Attending Unavailable OH CONTRERAS Attending Unavailable POCOSDIRK Referring Unavailable POCOSDIRK Attending Unavailable POCOS, DIRK Tee Referring Unavailable APLING, JESUS Ledezma Attending Unavailable APLING, JESUS Ledezma Referring Unavailable Allergies Allergy Classification Reported Allergen(s) Allergy Type Date of Onset Reaction(s) Facility (3 sources) levoFLOXacin Drug Allergy Unknown [facility] Other (2 sources) Penicillin V Drug Allergy Unknown [facility] Other (4 sources) Penicillin; Translations: [penicillin] Drug Allergy Unknown (qualifier value) [facility] Repository (1 source) levoFLOXacin Drug Allergy [address] [place] [address] Repository (1 source) Penicillins Drug allergy (disorder) [address] [place] [address] Repository (2 sources) Mold Extract; Translations: [Mold] Drug Allergy Unknown (qualifier value) [facility] Medications Current Medications Medication Drug Class(es) Dates Sig (Normalized) Sig (Original) ProAir (4 sources) beta2-Adrenergic Agonist Start: 02-16-2019 take 1 puff(s) by inhalation four times daily ProAir HFA puff(s), Inhalation, QID, Refill(s) 0 Start Date: 02/16/19 Status: Ordered take 1 puff(s) by in halation every [...] tablet Orally Twice a day prn Active tamsulosin hydrochloride 0.4 mg oral capsule (1 source) alpha-Adrenergic Cathie Start: 02-26-20 19 take 1 capsule by mouth once daily tamsulosin 0.4 mg Cap 0.4 mg = 1 cap(s), Oral, Daily, # 90 cap(s), Refills(s) 1, Pharmacy: [facility] Start Date: 02/25/19 Status: Ordered Problems Problem Classification Problem Date Documented Da te Episodic/Chronic Asthma (1 source) Asthma 02-16-2019 Chronic Chronic obstructive pulmonary disease and bronchiectasis (1 source) Pulmonary emphysema 02-16-2019 Chronic Genitourinary symptoms and ill-defined conditions (1 source) Urge incontinence of urine 02-16-2019 Chronic Genitourinary symptoms and ill-defined conditions (4 sources) Increased frequency of urination; Translations: [Nocturia] 02-16-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 Hyperplasia of prostate (1 source) Benign prostatic hypertrophy with outflow obstruction 02-16-2019 Chronic Nonspecific chest pain (4 sources) Chest pain, unspecified; Translations: [CHEST PAIN UNSPECIFIED] Onset: 09-09-2022 Episodic Osteoarthritis (1 source) Arthritis 02-16-2019 Chronic Other endocrine disorders (1 source) 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 Other lower respiratory disease (3 sources) Interstitial lung disease; Translations: [Interstitial pulmonary disease, unspecified] Chronic Other lower respiratory disease (4 sources) Interstitial pulmonary disease, unspecified; Translations: [Interstitial pulmonary disease, unspecified] Onset: 10-24-2021 Resolved: 10-24-2021 Chronic Other lower respiratory disease (1 source) Other forms of dyspnea; Translations: [OTHER FORMS OF DYSPNEA] Onset: 09-15-2022 Episodic Other male genital disorders (1 source) Encysted hydrocele 05-09-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 Other upper respiratory disease (1 source) Disorder of nasal sinus 02-16-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 Residual codes; unclassified (1 source) Localized edema; Translations: [LOCALIZED EDEMA] Onset: 09-15-2022 Episodic Unclassified (1 source) Interstitial pulmonary disease, unspecified; Translations: [Interstitial pulmonary disease, unspecified] Onset: 10-15-2022 Unclassified (1 source) Finding of sensation of bladder 02-16-2019 Results Test Name Value Interpretation Reference Range [...] wo conon 12-09-2022 CT chest wo con [facility] [place] [address] [place] [address] CT Scan Report Signed Patient: Russell Bobby MR#: [id number] : 1940 Acct:[id number] Age/Sex: 82 / M ADM Date: 12/09/22 Loc: CT Room: Type: [facility] Attending Dr: Jamie Kent MD Copies [...] Parikh Jr., D.O.12/09/2022 7:09 PM Dictation Location: [place] [address] Transcribed By: [facility] 12/09/221908 Dictated By: Gregorio Parikh Jr, DO 12/09/22 1635 Signed By: 12/09/221908 Normal [facility] NM STRESS/REST MULTIon 09-09 NM STRESS/REST MULTI Patient: RUSSELL BOBBY Exam Date: 09/09/2022 : 1940 Gender:M Ordering : DR NARAYAN LUU M.D. Admission #: [id number] Family : Order #: [id number] CLICK HERE TO VIEW EXAM RADIOLOGY REPORT [...] study was normal per attending physician Dr. Roes . For more details please see separate [...] Null M.D. on 09/09/2022 at 13:31 Normal [facility] Vital Signs Date Time Vital Sign Value Performing Clinician Faci saji 04-08-2023 09:45-0500 Body height 167.64 cm Jamie Kent Other [employer] Other 04-08-2023 09:45-0500 Body mass index (BMI) [Ratio] 28.24 kg/m2 Jamie Kent Other [employer] Other 04-08-2023 09:45-0500 Body temperature 96.4 [degF] Christkaraner Yoli Other [employer] Other 04-08-2023 09:45-0500 Body weight 79.38 kg Christopher Yoli Other [employer] Other 04-08-2023 09:45-0500 Diastolic blood pressure 74 mm[Hg] Christkaraner Yoli Other [employer] Other 04-08-2023 09:45-0500 Respiratory rate 20 /min Christkaraner Yoli Other [employer] Other 04-08-2023 09:45-0500 SaO2% (BldA) [Mass fraction] 98 % Christkaraner Yoli Other [employer] Other 04-08-2023 09:45-0500 Systolic blood pressure 122 mm[Hg] Bober Yoli Other [employer] Other 03-26-2022 12:45-0500 Body height 167.64 cm Christkaraner Yoli Other [employer] Other 03-26-2022 12:45-0500 Body mass index (BMI) [Ratio] 28.08 kg/m2 Christkaraner Yoli Other [employer] Other 03-26-2022 12:45-0500 Body temperature 97.1 [degF] Christopher Yoli Other [employer] Other 03-26-2022 12:45-0500 Body weight 78.93 kg Christkaraner Yoli Other [employer] Other 03-26-2022 12:45-0500 Diastolic blood pressure 73 mm[Hg] Christopher Yoli Other [employer] Other 03-26-2022 12:45-0500 Respiratory rate 20 /min Christopher Yoli Other [employer] Other 03-26-2022 12:45-0500 Systolic blood pressure 124 mm[Hg] Christopher Yoli Other [employer] Other 10-24-2021 12:45-0400 Body height 167.64 cm Christopher Yoli Other [employer] Other 10-24-2021 12:45-0400 Body mass index (BMI) [Ratio] 29.05 kg/m2 Christopher Yoli Other [employer] Other 10-24-2021 12:45-0400 Body temperature 97.4 [degF] Christopher Yoli Other [employer] Other 10-24-2021 12:45-0400 Body weight 81.65 kg Christopher Yoli Other [employer] Other 10-24-2021 12:45-0400 Diastolic blood pressure 80 mm[Hg] Christopher Yoli Other [employer] Other 10-24-2021 12:45-0400 Respiratory rate 20 /min Christopher Yoli Other [employer] Other 10-24-2021 12:45-0400 SaO2% (BldA) [Mass fraction] 94 % Jamie Kent Other [employer] Other 10-24-2021 12:45-0400 Systolic blood pressure 129 mm[Hg] Jamie Kent Other [facility] Other Encounters Encounter Date Encounter Type Care Provider Facility Start: 01-20-2024 End: 01-20-2024 ambulatory DIRK MASON Not Available Start: 01-15-2024 End: 01-15-2024 ambulatory Luis MEADE Facility:[facility] Start: 01-15-2024 End: 01-15-2024 Patient encounter procedure Luis MEADE [facility] Start: 12-02-2023 End: 12-02-2023 ambulatory OH CONTRERAS Not Available Start: 09-10-2023 Non-patient / Non-visit MD Narayan Luu Work Phone: [facility] Work Phone: Start: 09-10-2023 End: 09-10-2023 ambulatory Jamie Kent Facility:[facility] Start: 09-10-2023 End: 09-10-2023 ambulatory MD Narayan Luu Work Phone: [facility] Work Phone: Start: 09-10-2023 End: 09-10-2023 Patient encounter procedure MD Narayan Luu Work Phone: [facility] Work Phone: Start: 09-02-2023 End: 09-02-2023 ambulatory JESUS B APLING Not Available Start: 08-19-2023 End: 08-19-2023 ambulatory JESUS B APLING Not Available Start: 08-03-2023 End: 08-04-2023 ambulatory Monique Bray MD Facility:[facility] Start: 07-20-2023 End: 07-20-2023 ambulatory JESUS Ledezma APLING Not Available Start: 05-27-2023 End: 05-27-2023 ambulatory JESUS Ledezma APLING Not Available Start: 05-07-2023 End: 05-07-2023 ambulatory INDER OLIVEIRA Not Available Start: 04-22-2023 End: 04-22-2023 ambulatory JESUS Ledezma APLING Not Available Start: 04-13-2023 End: 04-13-2023 ambulatory NARAYAN LUU Not Available Start: 04-08-2023 End: 04-08-2023 ambulatory Jamie Kent Other [employer] Other Start: 04-08-2023 Office outpatient visit 25 minutes Jamie Kent [facility] Start: 03-18-2023 End: 03-18-2023 ambulatory Jamie Kent Facility:[facility] Start: 03-18-2023 End: 03-18-2023 ambulatory MD Narayan Luu Work Phone: [facility] Work Phone: Start: 03-18-2023 End: 03-18-2023 Patient encounter procedure MD Narayan Luu Work Phone: [facility] Work Phone: Start: 12-09-2022 End: 12-09-2022 ambulatory Jamie Kent Facility:[facility] Start: 12-09-2022 End: 12-09-2022 ambulatory MD Narayan Luu Work Phone: [facility] Work Phone: Start: 12-09-2022 End: 12-09-2022 Patient encounter procedure MD Narayan Luu Work Phone: [facility]-CT Scan [place] Work Phone: Start: 10-15-2022 End: 10-15-2022 ambulatory Jamie Kent Facility:[facility] Start: 10-15-2022 End: 10-15-2022 ambulatory MD Narayan Luu Work Phone: [facility] Work Phone: Start: 10-15-2022 End: 10-15-2022 Patient encounter procedure MD Narayan Luu Work Phone: [facility] Work Phone: Start: 09-09-2022 End: 09-10-[address] NARAYAN LUU Facility: Start: 03-26-2022 End: 03-26-2022 ambulatory Jamie Kent Other [employer] Other Start: 03-26-2022 Office outpatient visit 15 minutes Jamie Kent [facility] Start: 03-18-2022 End: 03-18-2022 ambulatory MD Narayan Luu Work Phone: [facility] Work Phone: Start: 03-18-2022 End: 03-18-2022 Patient encounter procedure MD Narayan Luu Work Phone: [facility] Start: 11-06-2021 End: 11-06-2021 Patient encounter procedure MD Narayan Luu Work Phone: [facility] Start: 10-24-2021 End: 10-24-2021 ambulatory Jamie Kent Other [employer] Other Start: 10-24-2021 Office outpatient visit 25 minutes Jamie Kent [facility] Start: 12-08-2016 End: 12-09-2016 Ambulatory DEFAULT PHYSICIAN Facility:[facility] Start: 11-20-2016 End: 11-21-2016 Ambulatory DEFAULT PHYSICIAN Facility:[facility] Procedures Date Procedure Procedure Detail Performing Clinician Start: 12-09-2022 CT of chest without contrast MD Narayan Luu Work Phone: back surgery Luis MEADE Colonoscopy Luis MEADE Tonsillectomy Luis MEADE Vasectomy Luis MEADE Immunizations Immunization Date Immunization Notes Care Provider Cristina arevalo 02-21-2022 COVID-19 Pfizer (bivalent) Christopher Yoli Other [facility] 10-04-2021 COVID-19 Pfizer Christopher Yloi Other [facility] 02-11-2021 COVID-19 Vaccine Pfi zer - Documentation Purposes Only Christopher Yoli Other [facility] 06-23-2020 Do not use COVID-19 Pfizer 2 dose Christopher Yoli Other [facility] 06-02-2020 Do not use COVID-19 Pfizer 2 dose Christopher Yoli Other [facility] 02-08-2019 influenza virus vaccine, live, attenuated, for intranasal use Luis MEADE [facility] Payers Date Payer Category Payer Private Health Insurance 2022 Self-pay [id number] 2019 Private Health Insurance [facility] [id number] Medicare [id number] 2. [id number] 1940 Unknown [id number] 2.16.84 0.1.611291.3.579.2.593 1940 Unknown [id number] 2.16. 840.1.025642.3.579.2.196 1940 Unknown [id number] 2.16.8 40.1.575019.3.579.2.727 1940 Unknown [id number] 2.16.84 0.1.492624.3.579.2.1259 1940 Unknown [id number] 2.16.84 0.1.413646.3.579.2.1259 1938 Unknown [id number] 2.16.84 0.1.695737.3.579.2.1259 1938 Unknown [id number] 2.16.84 0.1.285014.3.579.2.1259 1938 Unknown [id number] 2.16.84 0.1.768627.3.579.2.1259 1938 Unknown [id number] 2.16.84 0.1.340238.3.579.2.1259 1938 Unknown [id number] 2.16.84 0.1.847097.3.579.2.1259 1938 Unknown [id number] 2.16.84 0.1.633243.3.579.2.125 1938 Unknown [id number] 2.16.840 .1.888815.3.579.2.1259 1938 Unknown [id number] 2.16.840 .1.454825.3.579.2.1259 1938 Unknown [id number] 2.16.840 .1.477385.3.579.2.1259 1940 Unknown [id number] 2.16.840 .1.856030.3.579.2.1259 Unknown Unknown [id number] 2.16.8 40.1.149110.3.579.2.531 Unknown [id number] 2.16.8 40.1.634421.3.579.2.531 Unknown [id number] 2.16.8 40.1.935368.3.579.2.531 Unknown [id number] 2.16.8 40.1.372977.3.579.2.531 Social History Date Type Detail Facility Sex Assigned At [facility] Start: 1940 Sex Assigned At Male [facility] Start: 09-10-2023 Tobacco smoking stat us NHIS Ex-smoker (finding) [facility] Start: 05-09-2019 Tobacco smoking status Never s moked tobacco (finding) [facility] Tobacco smoking status Never [facility] Evaluation note 04-08-2023 Note Date & Type Note Facility 04-08-2023 Evaluation note Encounter Date Diagnosis Assessment Notes Mar, Interstitial lung disease (ICD-10 - J84.9) [employer] Other Evaluation note 03-26-2022 Note Date & Type Note Facility 03-26-2022 Evaluation note Encounter Date Diagnosis Assessment Notes Mar, Interstitial lung disease (ICD-10 - J84.9) [employer] Other Evaluation note 10-24-2021 Note Date & Type Note Facility 10-24-2021 Evaluation note Encounter Date Diagnosis Assessment Notes Oct, Interstitial lung disease (ICD-10 - J84.9) [employer] Other Evaluation + Plan note Note Date & Type Note Facility Evaluation + Plan note No data available for this section [facility] Evaluation note Note Date & Type Note Facility Evaluation note No assessment information availa [facility] Work Phone: History general Narrative - Reported [...] History ENT surgery 2002 Hospitalization History surgery [employer] Other History general Narrative - Reported Note [...] back 1994 Surgical History trigger thumb left 2014 Surgical History RFA inj. 2019 Surgical History hydrocele repair rt. 2019 Surgical History ENT surgery 2002 Hospitalization History surgery Hospitalization History [facility] pleurcy 07/2022 [employer] Other Hospital Discharge instructions Note Date & Type Note Facility Hospital Discharge instructions No data available for this section [facility] Progress note Note Date & Type Note Facility Progress note No data available for this section [facility] Summary Purpose Family History No Family History [...] section and content) DATE CREATED AUTHOR 11/04/2017 [facility] DATE CREATED AUTHOR AUTHOR'S ORGANIZ ATION 09/16/2022 [facility] DATE CREATED AUTHOR AUTHOR'S ORGANIZ ATION 09/15/2023 [facility] DATE CREATED AUTHOR AUTHOR'S ORGANIZ ATION 09/19/2023 [facility] DATE CREATED AUTHOR AUTHOR'S ORGANIZ ATION 01/17/2024 [facility] DATE CREATED AUTHOR AUTHOR'S ORGANIZ ATION 01/21/2024 [facility] EPIC REASON FOR VISIT [...] Narayan Luu MD Primary Care Provider Active S tart: September 10, 2023 End: September 10, 2023 Jamie Kent MD Attending Provider Active Start: September 10, 2023 End: September 10, 2023 Team Status: Active Member Role Status Dates Narayan Luu MD Primary Care Provider Active S tart: September 10, 2023 Jamie Kent MD Attending Pr ovider, Other Provider Active Start: September 10, 2023 [...] BE BASED ON THE PRIMARY CLINICAL RECORDS. [employer] [facility]. provides no warranty or guarantee of the accuracy or completeness of information in this document.
[2024-01-26 08:43] VITALS: BP 124/73; PULSE 62; TEMP 36.2; O2SAT 99
[2024-01-26 09:08] VITALS: BP 150/67; PULSE 65; O2SAT 99
[2024-01-26 09:09] VITALS: BP 175/71; PULSE 66; O2SAT 99
[2024-01-26] MEDS: BUPIVACAINE HCL 0.25% PF 25 MG/10 ML VIAL 3 ML INJ (09:13)
--- NOTE | 2024-01-26 09:32 | W.PM.PROCNOT ---
Date of procedure: 01/26/24 Pre-op diagnosis: Lumbar spondylosis Post-op diagnosis: same as pre-op Procedure: Right Lumbar 4/5, 5/sacral 1 medial branch block Under fluoroscopic guidance Solution injected: 2millilitersMarcaine 0.25% Anesthesia :none Immediate complications none Time out process compliant After informed consent obtained from the patient placed in the Prone proposition . area was prepped and draped in a sterile fashion using Cloraprep .25 gauge spinal needle inserted over each of the above mentioned target areas . [place] were directed towards the target under fluoroscopic guidance . after encountering each of the targets , no indication of intravascular intraneuronal or intrathecal needle tip placement. Then 0 .5 to 1 Milliliter was injected at each level. [place] removed postoperatively. patient transferred to recovery in stable condition to be discharged home after meeting criteria Anesthesia: Local Surgeon: Delores Randall Condition: stable
== END 2024-01-26 09:18 | disposition home or self-care (01) ==
LOC: SURGOUT 08:04
PROVIDERS: PCP Family Medicine; Visit Provider Anesthesiology Pain Medicine
DX: M47.816 Spondylosis without myelopathy or radiculopathy, lumbar region (principal)
CPT/HCPCS: 64493; 64494; J0665

== ENCOUNTER 2024-02-02 09:58 | Outpatient (OUT) | payer MEDICARE, SELFPAY ==
--- NOTE | 2024-02-02 | ECG_ITS ---
[facility] Test Date: 2024-02-02 Pat Name: MARINA PARTIDA Department: Room: - Gender: Male [employer]: : 1940 Requested By: MARLON LUU Order Number: [id number] Reading MD: CORDELIA BAL Measurements Intervals [place] Rate: 62 P: 43 IL: 233 QRS: -3 QRSD: 128 T: 3 QT: 394 QTc: 403 Interpretive Statements SINUS RHYTHM WITH FIRST DEGREE AV BLOCK RIGHT BUNDLE BRANCH BLOCK [120+ ms QRS DURATION, UPRIGHT V1, 40+ ms S IN I/aVL/V4/V5/V6] VOLTAGE CRITERIA FOR LVH [MEETS CRITERIA IN ONE OF: R(aVL), S(V1), R(V5), R(V5/V6)+S(V1)] Electronically Signed On 02-02-2024 22:33:47 EDT by CORDELIA BAL
--- OUTSIDE RECORDS SUMMARY | 2024-02-02 10:21 | XMS_ITS | CCD ---
Author Organization [facility] Care Team Providers Care Leather Sponger Name Role Phone PHYSICIAN, DEFAULT Unavailable Unavailable PHYSICIAN, DEFAULT Unavailable Unavailable PHYSICIAN, DEFAULT Unavailable Unavailable PHYSICIAN, DEFAULT Unavailable Unavailable Jamie Kent MD Narayan Luu Primary Care Provider [phone] MD Jamie Kent Attending Provider MD Narayan Luu Primary Care Provider [phone] MD Jamie Kent Attending Provider [phone] BELL, DR MASON Attending Unavailable BELL, DR MASON Consulting Unavailable BELL, DR MASON Primary Care Unavailable BELL, DR MASON Admitting Unavailable ZIEBER, DR ROGERIO Patel Consulting Unavailable MD Narayan Luu Primary Care Provider MD Jamie Kent Attending Provider MD Narayan Luu Primary Care Provider MD Jamie Kent Attending Provider [phone] Katarina SHAH, Monique Buenrostro Attending Unavailable MD Narayan Luu Primary Care Provider [phone] MD Jamie Kent Attending Provider [phone] Jamie Kent Admitting Unavaila ble Jamie Kent Attending Unavaila ble Narayan Luu Primary Care Unavailable Jamie Kent Admitting Unavaila ble Jamie Kent Attending Unavaila ble Narayan Luu Primary Care Unavailable Jamie Kent Admitting Unavaila ble Jamie Kent Attending Unavaila ble Napier, Rugen M Primary Care Unavailable Jamie Kent [...] Facility (3 sources) levoFLOXacin Drug Allergy Unknown [facility] [employer] Other (2 sources) Penicillin V Drug Allergy Unknown [facility] [employer] Other (4 sources) Penicillin; Translations: [penicillin] Drug Allergy Unknown (qualifier value) [facility] Repository (1 source) levoFLOXacin Drug Allergy [address] [place] [address] Repository (1 source) Penicillins Drug allergy (disorder) [address] [place] [address] Repository (2 sources) Mold Extract; Translations: [Mold] Drug Allergy Unknown (qualifier value) [facility] Medications Current Medications Medication Drug Class(es) [...] Daily, # 90 cap(s), Refills(s) 1, Pharmacy: [facility] Start Date: 02/25/19 Status: Ordered Problems Problem [...] wo conon 12-09-2022 CT chest wo con [facility] [place] [address] [place] [address] CT Scan Report Signed Patient: Russell Bobby MR#: [id number] : 1940 Acct:[id number] Age/Sex: 82 / M ADM Date: 12/09/22 Loc: CT Room: Type: [facility] Attending Dr: Jamie Kent MD Copies to: [...] Parikh Jr., D.O.12/09/2022 7:09 PM Dictation Location: [place] [address] Transcribed By: [facility] 12/09/221908 Dictated By: Gregorio Parikh Jr, DO 12/09/22 1635 Signed By: 12/09/221908 Normal [facility] NM STRESS/REST MULTIon 09-09 NM STRESS/REST MULTI Patient: RUSSELL BOBBY Exam Date: 09/09/2022 : 1940 Gender:M Ordering : DR NARAYAN LUU M.D. Admission #: [id number] Family : Order #: [id number] CLICK HERE TO VIEW EXAM RADIOLOGY REPORT [...] Null M.D. on 09/09/2022 at 13:31 Normal [facility] Vital Signs Date Time Vital Sign Value Performing Clinician Faci saji 04-08-2023 09:45-0500 Body height 167.64 cm Jamie Kent Other [facility] Other 04-08-2023 09:45-0500 Body mass index (BMI) [Ratio] 28.24 kg/m2 Jamie Kent Other [facility] Other 04-08-2023 09:45-0500 Body temperature 96.4 [degF] Christkaraner Yoli Other [facility] Other 04-08-2023 09:45-0500 Body weight 79.38 kg Christopher Yoli Other [facility] Other 04-08-2023 09:45-0500 Diastolic blood pressure 74 mm[Hg] Christkaraner Yoli Other [facility] Other 04-08-2023 09:45-0500 Respiratory rate 20 /min Christkaraner Yoli Other [facility] Other 04-08-2023 09:45-0500 SaO2% (BldA) [Mass fraction] 98 % Christkaraner Yoli Other [facility] Other 04-08-2023 09:45-0500 Systolic blood pressure 122 mm[Hg] Bober Yoli Other [facility] Other 03-26-2022 12:45-0500 Body height 167.64 cm Christkaraner Yoli Other [facility] Other 03-26-2022 12:45-0500 Body mass index (BMI) [Ratio] 28.08 kg/m2 Christkaraner Yoli Other [facility] Other 03-26-2022 12:45-0500 Body temperature 97.1 [degF] Christopher Yoli Other [facility] Other 03-26-2022 12:45-0500 Body weight 78.93 kg Christkaraner Yoli Other [facility] Other 03-26-2022 12:45-0500 Diastolic blood pressure 73 mm[Hg] Christopher Yoli Other [facility] Other 03-26-2022 12:45-0500 Respiratory rate 20 /min Christopher Yoli Other [facility] Other 03-26-2022 12:45-0500 Systolic blood pressure 124 mm[Hg] Christopher Yoli Other [facility] Other 10-24-2021 12:45-0400 Body height 167.64 cm Christopher Yoli Other [facility] Other 10-24-2021 12:45-0400 Body mass index (BMI) [Ratio] 29.05 kg/m2 Christopher Yoli Other [facility] Other 10-24-2021 12:45-0400 Body temperature 97.4 [degF] Christopher Yoli Other [facility] Other 10-24-2021 12:45-0400 Body weight 81.65 kg Christopher Yoli Other [facility] Other 10-24-2021 12:45-0400 Diastolic blood pressure 80 mm[Hg] Christopher Yoli Other [facility] Other 10-24-2021 12:45-0400 Respiratory rate 20 /min Christopher Yoli Other [facility] Other 10-24-2021 12:45-0400 SaO2% (BldA) [Mass fraction] 94 % Jamie Kent Other [facility] Other 10-24-2021 12:45-0400 Systolic blood pressure 129 mm[Hg] Jamie Kent Other [facility] [employer] Other Encounters Encounter Date Encounter Type Care Provider Facility Start: 01-20-2024 End: 01-20-2024 ambulatory DIRK MASON Not Available Start: 01-15-2024 End: 01-15-2024 ambulatory Luis MEADE Facility:[facility] Start: 01-15-2024 End: 01-15-2024 Patient encounter procedure Luis MEADE [facility] Start: 12-02-2023 End: 12-02-2023 ambulatory OH CONTRERAS Not Available Start: 09-10-2023 Non-patient / Non-visit MD Narayan Luu Work Phone: [facility] Work Phone: Start: 09-10-2023 End: 09-10-2023 ambulatory Jamie Kent Facility:[facility] Start: 09-10-2023 End: 09-10-2023 ambulatory MD Narayan Luu Work Phone: [facility] Work Phone: Start: 09-10-2023 End: 09-10-2023 Patient encounter procedure MD Narayan Luu Work Phone: [facility] Work Phone: Start: 09-02-2023 End: 09-02-2023 ambulatory JESUS B APLING Not Available Start: 08-19-2023 End: 08-19-2023 ambulatory JESUS B APLING Not Available Start: 08-03-2023 End: 08-04-2023 ambulatory Monique Bray MD Facility:[facility] Start: 07-20-2023 End: 07-20-2023 ambulatory JESUS Ledezma APLING Not Available Start: 05-27-2023 End: 05-27-2023 ambulatory JESUS Ledezma APLING Not Available Start: 05-07-2023 End: 05-07-2023 ambulatory INDER OLIVEIRA Not Available Start: 04-22-2023 End: 04-22-2023 ambulatory JESUS Ledezma APLING Not Available Start: 04-13-2023 End: 04-13-2023 ambulatory NARAYAN LUU Not Available Start: 04-08-2023 End: 04-08-2023 ambulatory Jamie Kent Other [facility] Other Start: 04-08-2023 Office outpatient visit 25 minutes Jamie Kent [facility] Start: 03-18-2023 End: 03-18-2023 ambulatory Jamie Kent Facility:[facility] Start: 03-18-2023 End: 03-18-2023 ambulatory MD Narayan Luu Work Phone: [facility] Work Phone: Start: 03-18-2023 End: 03-18-2023 Patient encounter procedure MD Narayan Luu Work Phone: [facility] Work Phone: Start: 12-09-2022 End: 12-09-2022 ambulatory Jamie Kent Facility:[facility] Start: 12-09-2022 End: 12-09-2022 ambulatory MD Narayan Luu Work Phone: [facility] Work Phone: Start: 12-09-2022 End: 12-09-2022 Patient encounter procedure MD Narayan Luu Work Phone: [facility]CT Scan [place] Work Phone: Start: 10-15-2022 End: 10-15-2022 ambulatory Jamie Kent Facility:[facility] Start: 10-15-2022 End: 10-15-2022 ambulatory MD Narayan Luu Work Phone: [facility] Work Phone: Start: 10-15-2022 End: 10-15-2022 Patient encounter procedure MD Narayan Luu Work Phone: [facility] Work Phone: Start: 09-09-2022 End: 09-10-[address] NARAYAN LUU Facility: Start: 03-26-2022 End: 03-26-2022 ambulatory Jamie Kent Other [facility] Other Start: 03-26-2022 Office outpatient visit 15 minutes Jamie Kent [facility] Start: 03-18-2022 End: 03-18-2022 ambulatory MD Narayan Luu Work Phone: [facility] Work Phone: Start: 03-18-2022 End: 03-18-2022 Patient encounter procedure MD Narayan Luu Work Phone: [facility] Start: 11-06-2021 End: 11-06-2021 Patient encounter procedure MD Narayan Luu Work Phone: [facility] Start: 10-24-2021 End: 10-24-2021 ambulatory Jamie Kent Other [facility] Other Start: 10-24-2021 Office outpatient visit 25 minutes Jamie Kent [facility] Start: 12-08-2016 End: 12-09-2016 Ambulatory DEFAULT PHYSICIAN Facility:[facility] Start: 11-20-2016 End: 11-21-2016 Ambulatory DEFAULT PHYSICIAN Facility:[facility] Procedures Date Procedure Procedure Detail Performing Clinician Start: 12-09-2022 CT of chest without contrast MD Narayan Luu Work Phone: back surgery Luis MEADE Colonoscopy Luis MEADE Tonsillectomy Luis MEADE Vasectomy Luis MEADE Immunizations Immunization Date Immunization Notes Care Provider Cristina arevalo 02-21-2022 COVID-19 Pfizer (bivalent) Christopher Yoli Other [facility] 10-04-2021 COVID-19 Pfizer Christopher Yoli Other [facility] 02-11-2021 COVID-19 Vaccine Pfi zer - Documentation Purposes Only Christopher Yoli Other [facility] 06-23-2020 Do not use COVID-19 Pfizer 2 dose Christopher Yoli Other [facility] 06-02-2020 Do not use COVID-19 Pfizer 2 dose Christopher Yoli Other [facility] 02-08-2019 influenza virus vaccine, live, attenuated, for intranasal use Luis MEADE [facility] Payers Date Payer Category Payer Private Health Insurance 2022 Self-pay [id number] 2019 Private Health Insurance [facility] [id number] 1961 Medicare [id number] 2. [id number] 1940 Unknown [id number] 2.16.84 0.1.301950.3.579.2.593 1940 Unknown [id number] 2.16. 840.1.877381.3.579.2.196 1940 Unknown [id number] 2.16.8 40.1.880373.3.579.2.727 1940 Unknown [id number] 2.16.84 0.1.314382.3.579.2.1259 1940 Unknown [id number] 2.16.84 0.1.920158.3.579.2.1259 1940 Unknown [id number] 2.16.84 0.1.631165.3.579.2.1259 1940 Unknown [id number] 2.16.84 0.1.201106.3.579.2.1259 1938 Unknown [id number] 2.16.84 0.1.117322.3.579.2.1259 1938 Unknown [id number] 2.16.84 0.1.009868.3.579.2.1259 1938 Unknown [id number] 2.16.84 0.1.088450.3.579.2.1259 1938 Unknown [id number] 2.16.84 0.1.344124.3.579.2.125 1940 Unknown [id number] 2.16.840 .1.794763.3.579.2.1259 1938 Unknown [id number] 2.16.840 .1.788339.3.579.2.1259 1938 Unknown [id number] 2.16.840 .1.902241.3.579.2.1259 1940 Unknown [id number] 2.16.840 .1.467379.3.579.2.1259 Unknown Unknown [id number] 2.16.8 40.1.819032.3.579.2.531 Unknown [id number] 2.16.8 40.1.513377.3.579.2.531 Unknown [id number] 2.16.8 40.1.966031.3.579.2.531 Unknown [id number] 2.16.8 40.1.083030.3.579.2.531 Social History Date Type Detail Facility Sex Assigned At [facility] Start: 1940 Sex Assigned At Male [facility] Start: 09-10-2023 Tobacco smoking stat us NHIS Ex-smoker (finding) [facility] Start: 05-09-2019 Tobacco smoking status Never s moked tobacco (finding) [facility] Tobacco smoking status Never [facility] Evaluation note 04-08-2023 Note Date & Type Note Facility 04-08-2023 Evaluation note Encounter Date Diagnosis Assessment Notes Mar, Interstitial lung disease (ICD-10 - J84.9) [facility] Other Evaluation note 03-26-2022 Note Date & Type Note Facility 03-26-2022 Evaluation note Encounter Date Diagnosis Assessment Notes Mar, Interstitial lung disease (ICD-10 - J84.9) [facility] Other Evaluation note 10-24-2021 Note Date & Type Note Facility 10-24-2021 Evaluation note Encounter Date Diagnosis Assessment Notes Oct, Interstitial lung disease (ICD-10 - J84.9) [facility] Other Evaluation + Plan note Note Date & Type Note Facility Evaluation + Plan note No data available for this section [facility] Evaluation note Note Date & Type Note Facility Evaluation note No assessment information availa [facility] Work Phone: History general Narrative [...] History ENT surgery 2002 Hospitalization History surgery [facility] Other History general Narrative - Reported Note [...] surgery Hospitalization History [facility] pleurcy 07/2022 [facility] Other Hospital Discharge instructions Note Date & Type Note Facility Hospital Discharge instructions No data available for this section [facility] Progress note Note Date & Type Note Facility Progress note No data available for this section [facility] Summary Purpose Family History No Family [...] section and content) DATE CREATED AUTHOR 11/04/[address] [facility] DATE CREATED AUTHOR AUTHOR'S ORGANIZ ATION 09/16/2022 [facility] DATE CREATED AUTHOR AUTHOR'S ORGANIZ ATION 09/15/2023 [facility] DATE CREATED AUTHOR AUTHOR'S ORGANIZ ATION 09/19/2023 [facility] DATE CREATED AUTHOR AUTHOR'S ORGANIZ ATION 01/17/2024 [facility] DATE CREATED AUTHOR AUTHOR'S ORGANIZ ATION 01/21/2024 [facility] EPIC REASON FOR VISIT (unrecogniz ed section and content) 3 mo f/u ILD5 mo f/u ILD3 mo f/u ILD Care Teams (unrecognized sec tion and content) Team Status: Active Member Role Status Dates Narayan Luu MD Primary Care Provider Active Team Status: Inactive Member Role Status Dates Narayan Luu MD Primary Care Provider Active Jamei Kent MD Attending Provider Active Team Status: [...] BE BASED ON THE PRIMARY CLINICAL RECORDS. [facility]. provides no warranty or guarantee of the accuracy or completeness of information in this document.
[2024-02-02 10:30] LABS: Basophils Percent Auto 0.6 % (0.2-2.0); Eosinophils Absolute Auto 0.1 10^3/uL (0.0-0.7); Eosinophils Percent Auto 1.9 % (0.9-7.0); Hematocrit 42.1 % (42.0-54.0); Hemoglobin 13.6 g/dL (14.0-18.0); Immature Granulocytes Abs Auto 0.01 10^3/uL (0.00-0.03); Immature Granulocytes Pct Auto 0.2 % (0.0-0.5); Lymphocytes Absolute Auto 1.5 10^3/uL (1.2-3.8); Lymphocytes Percent Auto 23.6 % (20.5-60.0); Mean Corpuscular HGB Conc 32.3 g/dL (29.9-35.2); Mean Corpuscular Hemoglobin 32.2 pg (25.9-34.0); Mean Corpuscular Volume 99.5 fL (80.0-94.0); Mean Platelet Volume 10.4 fL (9.5-13.5); Monocytes Absolute Auto 0.9 10^3/uL (0.3-0.8); Monocytes Percent Auto 13.4 % (1.7-12.0); Neutrophils Absolute Auto 3.9 10^3/uL (1.4-6.5); Neutrophils Percent Auto 60.3 % (43.0-75.0); Platelet Count 163 10^3/uL (150-450); Red Blood Count 4.23 10^6/uL (4.70-6.10); Red Cell Distribution Width 14.2 % (11.0-15.0); White Blood Count 6.4 10^3/uL (4.0-11.0)
[2024-02-02 10:59] LABS: Anion Gap 9.5; BUN Creatinine Ratio 19.1; Calcium 8.6 mg/dL (8.5-10.1); Carbon Dioxide 26.4 mmol/L (21.0-32.0); Chloride 106 mmol/L (98-107); Estimated GFR (African America >60 (>=60); Estimated GFR (Non-African Ame >60 (>=60); Glucose 115 mg/dL (74-106); Potassium 3.9 mmol/L (3.5-5.1); Sodium 138 mmol/L (136-145)
== END 2024-02-02 09:59 | disposition home or self-care (01) ==
LOC: CARD 09:59
PROVIDERS: PCP Family Medicine; Visit Provider Orthopaedic Surgery
DX: Z01.812 Encounter for preprocedural laboratory examination (principal); Z01.810 Encounter for preprocedural cardiovascular examination
CPT/HCPCS: 36415; 80048; 85025; 93005

== ENCOUNTER 2024-02-03 11:08 | Outpatient (OUT) | payer MEDICARE, SELFPAY ==
--- OUTSIDE RECORDS SUMMARY | 2024-02-03 11:13 | XMS_ITS | CCD ---
Author Organization [facility] Care Team Providers Care Computer System Specialist Name Role Phone PHYSICIAN, DEFAULT Unavailable Unavailable PHYSICIAN, DEFAULT Unavailable Unavailable PHYSICIAN, DEFAULT Unavailable Unavailable PHYSICIAN, DEFAULT Unavailable Unavailable Jamie Kent MD Narayan Luu Primary Care Provider MD Jamie Kent Attending Provider [phone] MD Narayan Luu Primary Care Provider MD Jamie Kent Attending Provider BELL, DR MASON Attending Unavailable BELL, DR MASON Consulting Unavailable BELL, DR MASON Primary Care Unavailable BELL, DR MASON Admitting Unavailable ZIEBER, DR ROGERIO Patel Consulting Unavailable MD Narayan Luu Primary Care Provider MD Jamie Kent Attending Provider [phone] MD Narayan Luu Primary Care Provider [phone] MD Jamie Kent Attending Provider Katarina SHAH, Monique Buenrostro Attending Unavailable MD Narayan Luu Primary Care Provider MD Jamie Kent Attending Provider [phone] Jamie Kent Admitting Unavaila ble Jamie Kent Attending Unavaila ble Narayan Luu Primary Care Unavailable Jamie Kent Admitting Unavaila ble aJmie Kent Attending Unavaila ble Narayan Luu Primary Care Unavailable Jamie Kent Admitting Unavaila ble Jamie Kent Attending Unavaila ble Lachine, Rugen M Primary Care Unavailable Jamie Kent Admitting UnavailJamie Asencio Attending UnavailNarayan Palmer Primary Care Unavailable NARAYAN LUU Primary Care Physician Luis MEADE Attending Unavailable INDER OLIVEIRA Attending Unavailable APLING, JESUS Ledezma Attending Unavailable APLING, EJSUS Ledezma Referring Unavailable APLING, JESUS Ledezma Attending [...] Facility (3 sources) levoFLOXacin Drug Allergy Unknown [facility] [place] Other (2 sources) Penicillin V Drug Allergy Unknown [facility] [place] Other (4 sources) Penicillin; Translations: [penicillin] Drug Allergy Unknown (qualifier value) [facility] Repository (1 source) levoFLOXacin Drug Allergy [address] [place] [address] Repository (1 source) Penicillins Drug allergy (disorder) [address] [place] [address] Repository (2 sources) Mold Extract; Translations: [Mold] Drug Allergy Unknown (qualifier value) [facility] Medications Current Medications Medication Drug Class(es) Dates [...] Daily, # 90 cap(s), Refills(s) 1, Pharmacy: [facility] Start Date: 02/25/19 Status: Ordered Problems [...] wo conon 12-09-2022 CT chest wo con [facility] [place] [address] [place] [address] CT Scan Report Signed Patient: Russell Bobby MR#: [id number] : 1940 Acct:[id number] Age/Sex: 82 / M ADM Date: 12/09/22 Loc: CT Room: Type: [facility] Attending Dr: Jamie Kent MD Copies [...] Parikh Jr., D.O.12/09/2022 7:09 PM Dictation Location: [place] [address] Transcribed By: [facility] 12/09/221908 Dictated By: Gregorio Parikh Jr, DO 12/09/22 1635 Signed By: 12/09/221908 Normal [facility] NM STRESS/REST MULTIon 09-09 NM STRESS/REST MULTI Patient: RUSSELL BOBBY Exam Date: 09/09/2022 : 1940 Gender:M Ordering : DR NARAYAN LUU M.D. Admission #: [id number] Family : Order #: [id number] CLICK HERE TO VIEW EXAM RADIOLOGY REPORT [...] Null M.D. on 09/09/2022 at 13:31 Normal [facility] Vital Signs Date Time Vital Sign Value Performing Clinician Faci saji 04-08-2023 09:45-0500 Body height 167.64 cm Jamie Kent Other [facility] Other 04-08-2023 09:45-0500 Body mass index (BMI) [Ratio] 28.24 kg/m2 Jamie Kent Other [facility] Other 04-08-2023 09:45-0500 Body temperature 96.4 [degF] Christkaraner Yoli Other [facility] Other 04-08-2023 09:45-0500 Body weight 79.38 kg Christopher Yoli Other [facility] Other 04-08-2023 09:45-0500 Diastolic blood pressure 74 mm[Hg] Christkaraner Yoli Other [facility] Other 04-08-2023 09:45-0500 Respiratory rate 20 /min Christkaraner Yoli Other [facility] Other 04-08-2023 09:45-0500 SaO2% (BldA) [Mass fraction] 98 % Christkaraner Yoli Other [facility] Other 04-08-2023 09:45-0500 Systolic blood pressure 122 mm[Hg] Bober Yoli Other [facility] Other 03-26-2022 12:45-0500 Body height 167.64 cm Christkaraner Yoli Other [facility] Other 03-26-2022 12:45-0500 Body mass index (BMI) [Ratio] 28.08 kg/m2 Christkaraner Yoli Other [facility] Other 03-26-2022 12:45-0500 Body temperature 97.1 [degF] Christopher Yoli Other [facility] Other 03-26-2022 12:45-0500 Body weight 78.93 kg Christkaraner Yoli Other [facility] Other 03-26-2022 12:45-0500 Diastolic blood pressure 73 mm[Hg] Christopher Yoli Other [facility] Other 03-26-2022 12:45-0500 Respiratory rate 20 /min Christopher Yoli Other [facility] Other 03-26-2022 12:45-0500 Systolic blood pressure 124 mm[Hg] Christopher Yoli Other [facility] Other 10-24-2021 12:45-0400 Body height 167.64 cm Christopher Yoli Other [facility] Other 10-24-2021 12:45-0400 Body mass index (BMI) [Ratio] 29.05 kg/m2 Christopher Yoli Other [facility] Other 10-24-2021 12:45-0400 Body temperature 97.4 [degF] Christopher Yoli Other [facility] Other 10-24-2021 12:45-0400 Body weight 81.65 kg Christopher Yoli Other [facility] Other 10-24-2021 12:45-0400 Diastolic blood pressure 80 mm[Hg] Christopher Yoli Other [facility] Other 10-24-2021 12:45-0400 Respiratory rate 20 /min Christopher Yoli Other [facility] Other 10-24-2021 12:45-0400 SaO2% (BldA) [Mass fraction] 94 % Jamie Kent Other [facility] Other 10-24-2021 12:45-0400 Systolic blood pressure 129 mm[Hg] Jamie Kent Other [facility] [place] Other Encounters Encounter Date Encounter Type Care Provider Facility Start: 01-20-2024 End: 01-20-2024 ambulatory DIRK MASON Not Available Start: 01-15-2024 End: 01-15-2024 ambulatory Luis MEADE Facility:[facility] Start: 01-15-2024 End: 01-15-2024 Patient encounter procedure Luis MEADE [facility] Start: 12-02-2023 End: 12-02-2023 ambulatory [place] CONTRERAS Not Available Start: 09-10-2023 Non-patient / Non-visit MD Narayan Luu Work Phone: [facility] Work Phone: Start: 09-10-2023 End: 09-10-2023 ambulatory Jamie Kent Facility:[facility] Start: 09-10-2023 End: 09-10-2023 ambulatory MD Narayan Luu Work Phone: [facility] Work Phone: Start: 09-10-2023 End: 09-10-2023 Patient encounter procedure MD Narayan Luu Work Phone: [facility] Work Phone: Start: 09-02-2023 End: 09-02-2023 ambulatory JESUS B APLING Not Available Start: 08-19-2023 End: 08-19-2023 ambulatory JESUS B APLING Not Available Start: 08-03-2023 End: 08-04-2023 ambulatory Monique Bray MD Facility:[facility] Start: 07-20-2023 End: 07-20-2023 ambulatory JESUS Ledezma APLING Not Available Start: 05-27-2023 End: 05-27-2023 ambulatory JESUS Ledezma APLING Not Available Start: 05-07-2023 End: 05-07-2023 ambulatory INDER OLIVEIRA Not Available Start: 04-22-2023 End: 04-22-2023 ambulatory JESUS Ledezma APLING Not Available Start: 04-13-2023 End: 04-13-2023 ambulatory NARAYAN LUU Not Available Start: 04-08-2023 End: 04-08-2023 ambulatory Jamie Kent Other [facility] Other Start: 04-08-2023 Office outpatient visit 25 minutes Jamie Kent [facility] Start: 03-18-2023 End: 03-18-2023 ambulatory Jamie Kent Facility:[facility] Start: 03-18-2023 End: 03-18-2023 ambulatory MD Narayan Luu Work Phone: [facility] Work Phone: Start: 03-18-2023 End: 03-18-2023 Patient encounter procedure MD Narayan Luu Work Phone: [facility] Work Phone: Start: 12-09-2022 End: 12-09-2022 ambulatory Jamie Kent Facility:[facility] Start: 12-09-2022 End: 12-09-2022 ambulatory MD Narayan Luu Work Phone: [facility] Work Phone: Start: 12-09-2022 End: 12-09-2022 Patient encounter procedure MD Narayan Luu Work Phone: [facility]-CT Scan [place] Work Phone: Start: 10-15-2022 End: 10-15-2022 ambulatory Jamie Kent Facility:[facility] Start: 10-15-2022 End: 10-15-2022 ambulatory MD Narayan Luu Work Phone: [facility] Work Phone: Start: 10-15-2022 End: 10-15-2022 Patient encounter procedure MD Narayan Luu Work Phone: [facility] Work Phone: Start: 09-09-2022 End: 09-10-[address] NARAYAN LUU Facility: Start: 03-26-2022 End: 03-26-2022 ambulatory Jamie Kent Other [facility] Other Start: 03-26-2022 Office outpatient visit 15 minutes Jamie Kent [facility] Start: 03-18-2022 End: 03-18-2022 ambulatory MD Narayan Luu Work Phone: [facility] Work Phone: Start: 03-18-2022 End: 03-18-2022 Patient encounter procedure MD Narayan Luu Work Phone: [facility] Start: 11-06-2021 End: 11-06-2021 Patient encounter procedure MD Narayan Luu Work Phone: [facility] Start: 10-24-2021 End: 10-24-2021 ambulatory Jamie Kent Other [facility] Other Start: 10-24-2021 Office outpatient visit 25 minutes Jamie Kent [facility] Start: 12-08-2016 End: 12-09-2016 Ambulatory DEFAULT PHYSICIAN Facility:[facility] Start: 11-20-2016 End: 11-21-2016 Ambulatory DEFAULT PHYSICIAN Facility:[facility] Procedures Date Procedure Procedure Detail Performing Clinician Start: 12-09-2022 CT of chest without contrast MD Narayan Luu Work Phone: back surgery Luis MEADE Colonoscopy Luis MEADE Tonsillectomy Luis MEADE Vasectomy Luis MEADE Immunizations Immunization Date Immunization Notes Care Provider Cristina arevalo 02-21-2022 COVID-19 Pfizer (bivalent) Christopher Yoli Other [facility] 10-04-2021 COVID-19 Pfizer Christopher Yoli Other [facility] 02-11-2021 COVID-19 Vaccine Pfi zer - Documentation Purposes Only Christopher Yoli Other [facility] 06-23-2020 Do not use COVID-19 Pfizer 2 dose Christopher Yoli Other [facility] 06-02-2020 Do not use COVID-19 Pfizer 2 dose Christopher Yoli Other [facility] 02-08-2019 influenza virus vaccine, live, attenuated, for intranasal use Luis MEADE [facility] Payers Date Payer Category Payer Private Health Insurance 2022 Self-pay [id number] 2019 Private Health Insurance [facility] [id number] 1961 Medicare [id number] 2. [id number] 1940 Unknown [id number] 2.16.84 0.1.162942.3.579.2.593 1940 Unknown [id number] 2.16. 840.1.447328.3.579.2.196 1940 Unknown [id number] 2.16.8 40.1.011512.3.579.2.727 1940 Unknown [id number] 2.16.84 0.1.103901.3.579.2.1259 1940 Unknown [id number] 2.16.84 0.1.609188.3.579.2.1259 1938 Unknown [id number] 2.16.84 0.1.753193.3.579.2.1259 1938 Unknown [id number] 2.16.84 0.1.047815.3.579.2.1259 1938 Unknown [id number] 2.16.84 0.1.761985.3.579.2.1259 1938 Unknown [id number] 2.16.84 0.1.375178.3.579.2.1259 1938 Unknown [id number] 2.16.84 0.1.960021.3.579.2.1259 1938 Unknown [id number] 2.16.84 0.1.590326.3.579.2.125 1938 Unknown [id number] 2.16.840 .1.551369.3.579.2.1259 1938 Unknown [id number] 2.16.840 .1.114170.3.579.2.1259 1938 Unknown [id number] 2.16.840 .1.203317.3.579.2.1259 1938 Unknown [id number] 2.16.840 .1.102251.3.579.2.1259 Unknown Unknown [id number] 2.16.8 40.1.276852.3.579.2.531 Unknown [id number] 2.16.8 40.1.413200.3.579.2.531 Unknown [id number] 2.16.8 40.1.664320.3.579.2.531 Unknown [id number] 2.16.8 40.1.201940.3.579.2.531 Social History Date Type Detail Facility Sex Assigned At [facility] Start: 1940 Sex Assigned At Male [facility] Start: 09-10-2023 Tobacco smoking stat us NHIS Ex-smoker (finding) [facility] Start: 05-09-2019 Tobacco smoking status Never s moked tobacco (finding) [facility] Tobacco smoking status Never [facility] Evaluation note 04-08-2023 Note Date & Type Note Facility 04-08-2023 Evaluation note Encounter Date Diagnosis Assessment Notes Mar, Interstitial lung disease (ICD-10 - J84.9) [facility] Other Evaluation note 03-26-2022 Note Date & Type Note Facility 03-26-2022 Evaluation note Encounter Date Diagnosis Assessment Notes Mar, Interstitial lung disease (ICD-10 - J84.9) [facility] Other Evaluation note 10-24-2021 Note Date & Type Note Facility 10-24-2021 Evaluation note Encounter Date Diagnosis Assessment Notes Oct, Interstitial lung disease (ICD-10 - J84.9) [facility] Other Evaluation + Plan note Note Date & Type Note Facility Evaluation + Plan note No data available for this section [facility] Evaluation note Note Date & Type Note Facility Evaluation note No assessment information availa [facility] Work Phone: History general Narrative - [...] History ENT surgery 2002 Hospitalization History surgery [facility] Other History general Narrative - Reported Note [...] surgery Hospitalization History [facility] pleurcy 07/2022 [facility] Other Hospital Discharge instructions Note Date & Type Note Facility Hospital Discharge instructions No data available for this section [facility] Progress note Note Date & Type Note Facility Progress note No data available for this section [facility] Summary Purpose Family History No Family [...] section and content) DATE CREATED AUTHOR 11/04/2017 [facility] DATE CREATED AUTHOR AUTHOR'S ORGANIZ ATION 09/16/2022 [facility] DATE CREATED AUTHOR AUTHOR'S ORGANIZ ATION 09/15/2023 [facility] DATE CREATED AUTHOR AUTHOR'S ORGANIZ ATION 09/19/2023 [facility] DATE CREATED AUTHOR AUTHOR'S ORGANIZ ATION 01/17/2024 [facility] DATE CREATED AUTHOR AUTHOR'S ORGANIZ ATION 01/21/2024 [facility] EPIC REASON FOR VISIT (unrecogniz [...] BE BASED ON THE PRIMARY CLINICAL RECORDS. Company [facility]. provides no warranty or guarantee of the accuracy or completeness of information in this document.
--- NOTE | 2024-02-03 11:25 | PM.CN ---
Consult Note: HPI Data of Consult Patient: known to practice within the last 3 years Requesting Physician: Shasta Joshi NP Primary Care Provider: MARLON LUU Consult Narrative Reason for consult: f/u Narrative: Good Bobby a pleasant 83 year old male presents for evaluation and management of chronic low back pain. historically has benefitted from lumbar RFAs with previous pain management providers. patient has engaged in HEP greater than 6 weeks without improvement, finds mild benefit to tylenol and nabumetone. recent right L4/5 L5/S1 MBB #1 providing 100% improvement ongoing. cc:: CC: Shasta Joshi NP Review of Systems ROS Status of ROS 10 or more systems reviewed and unremarkable except as noted in history and below Musculoskeletal Denies: back pain or neck pain PFSH PFSH Medical History Osteoarthritis ?M19.90 - Unspecified osteoarthritis, unspecified site (ICD-10) Neck pain ?M54.2 - Cervicalgia (ICD-10) Pleurisy ?R09.1 - Pleurisy (ICD-10) Lung fibrosis ?J84.10 - Pulmonary fibrosis, unspecified (ICD-10) Surgical History S/P hernia repair ?Z98.890 - Other specified postprocedural states (ICD-10) ?Z87.19 - Personal history of other diseases of the digestive system (ICD-10) Status post lung surgery ?Z98.890 - Other specified postprocedural states (ICD-10) H/O lumbosacral spine surgery ?Z98.890 - Other specified postprocedural states (ICD-10) Meds Home Medications and Allergies Home Medications ?Medication ?Instructions ?Recorded ?Confirmed ?Type albuterol sulfate 90 mcg/actuation 1 inh inhalation .everyday PRN 06/02/23 01/26/24 History breath activated powder inhaler shortness of breath or wheezing ibuprofen 200 mg capsule 200 mg PO TID PRN pain 06/02/23 01/26/24 History triamcinolone acetonide 0.1 % 1 applic topical DAILY PRN itching 06/02/23 01/26/24 History topical cream nabumetone 500 mg tablet 500 mg PO DAILY 01/26/24 01/26/24 History Allergies Allergy/AdvReac Type Severity Reaction Status Date / Time No Known Drug Allergies Allergy Verified 01/26/24 08:46 Exam Constitutional Documenting provider has reviewed patient's vital signs: yes Common normals: no apparent distress, oriented x3, healthy appearing, alert and well nourished General appearance: cooperative [facility] Common normals: normocephalic, hearing grossly normal bilaterally and moist oral mucous membranes Head and scalp: normocephalic Eye Common normals: PERRL Pupil: PERRL Neck & C-Spine Common normals: full ROM General: normal visual inspection Cervical spine: cervical ROM normal and paracervical muscle tenderness Other: negative spurlings sensation intact BLE improvement in pain with ROM Chest Common normals: inspection of chest normal Respiratory Common normals: normal respiratory effort, no retractions and no use of accessory muscles Back & Pelvis Lumbar spine/lower back: ROM limited, pain with ROM, lumbar spinal tenderness and straight leg raise negative bilaterally Other: right sided facet loading pain, negative radiculopathy strength 5/5 in BLE Extremity Common normals: normal to inspection and full ROM Neuro Common normals: oriented x3, CN's II-XII intact bilaterally, moves all extremities, no focal motor deficits, no sensory deficits noted and deep tendon reflexes 2+ bilaterally Sensorium/orientation: alert Motor exam: strength 5/5 throughout and no movement abnormalities noted Psych Common normals: mental status grossly normal, thought process normal, cooperative, affect normal, speech normal and activity/motor behavior normal Speech: normal speech Thought process: normal thought process Results Additional Findings Additional findings: If on a controlled substance or opioids, I have checked an [place]AR[place] report on this patient and there are no aberrancies noted in the prescribing history.??If on a controlled substance or opioid a drug screen was completed and reviewed within the last year, and if there has not been a drug screen completed we ordered one today to monitor higher risk, state monitored pain medication use. As part of providing excellent, safe, comprehensive care, the following was completed at our patient's visit: 1. A medication reconciliation and review to ensure accurate knowledge of current/active medications, including asking our patients to inform us about any khih-ryv-[id number] medications or herbal remedies/nutritional supplements/alternative remedies. 2. A review to specifically ensure our patients have had annual screening for screening for depression, screening for tobacco use, and screening for unhealthy alcohol use. For concerning screenings had a discussion with the patient, provided patient education, and recommended follow-up with primary care provider when appropriate. If patient noted with a risk of falling, they received education on strength, gait, and balance training to prevent future risk of falling. Assessment and Plan Assessment and Plan (1) Cervical spondylosis: Assessment and Plan: 100% improvement ongoing (2) Myofascial pain: (3) Lumbar spondylosis: Plan right L4/5 L5/S1 facet medial branch block #2 working towards RFA when pain worsens/returns to baseline. pt to call to schedule continue HEP as tolerated continue current medications f/u after each injection
== END 2024-02-03 11:09 | disposition home or self-care (01) ==
LOC: PM 11:08
PROVIDERS: PCP Family Medicine; Visit Provider Nurse Practitioner
DX: M47.812 Spondylosis without myelopathy or radiculopathy, cervical region (principal); M79.18 Myalgia, other site; M47.816 Spondylosis without myelopathy or radiculopathy, lumbar region
CPT/HCPCS: G0463

== ENCOUNTER 2024-03-06 14:58 | Emergency (ER) | payer MEDICARE, SELFPAY ==
--- OUTSIDE RECORDS SUMMARY | 2024-03-06 15:04 | XMS_ITS | CCD ---
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 Role Phone PHYSICIAN, DEFAULT Unavailable Unavailable PHYSICIAN, DEFAULT Unavailable Unavailable PHYSICIAN, DEFAULT Unavailable Unavailable PHYSICIAN, DEFAULT Unavailable Unavailable Jamie Kent [phone] MD Narayan Luu Primary Care Provider [phone] MD Jamie Kent Attending Provider MD Narayan Luu Primary Care Provider MD Jamie Kent Attending Provider [phone] BELL, DR MASON Attending Unavailable BELL, DR MASON Consulting Unavailable BELL, DR MASON Primary Care Unavailable BELL, DR MASON Admitting Unavailable ZIEBER, DR ROGERIO Patel Consulting Unavailable Bell, MD Narayan Chung Primary Care Provider [phone] MD Jamie Kent Attending Provider [phone] MD Narayan Luu Primary Care Provider [phone] MD Jamie Kent Attending Provider [phone] Katarina SHAH, Monique Buenrostro Attending Unavailable MD Narayan Luu Primary Care Provider MD Jamie Kent Attending Provider [phone] Jamie Kent Admitting Unavaila ble Jamie Kent Attending Unavaila ble Narayan Luu Primary Care Unavailable Jamie Kent Admitting Unavaila ble Jamie Kent Attending Unavaila ble Narayan Luu Primary Care Unavailable Jamie Kent Admitting Unavaila ble Jamie Kent Attending Narayan New Primary Care Unavailable Jamie Kent Admitting Jamie Bartlett Attending Narayan New Primary Care Unavailable NARAYAN LUU Primary Care Physician Luis STRICKLAND Attending Unavailable Narayan Luu MD Unavailable Narayan Luu MD Primary Care Provider SHEBA OLIVEIRA Attending Unavailable APLING, JESUS Ledezma Attending Unavailable APLING, JESUS Ledezma Referring Unavailable APLING, JESUS Ledezma Attending Unavailable APLING, JESUS Ledezma Attending Unavailable APLING, JESUS Ledezma Referring Unavailable BELLNARAYAN Tee Attending Unavailable APLING, JESUS Ledezma Attending Unavailable APLING, JESUS Ledezma Referring Unavailable BENOH LAW Attending Unavailable POCOS, DIRK Tee Referring Unavailable POCOS, DIRK Tee Attending Unavailable POCOS, DIRK Tee Referring Unavailable POCOS, DIRK Tee Attending Unavailable POCOS, DIRK Tee Referring Unavailable Allergies Allergy Classification Reported Allergen(s) Allergy Type Date of Onset Reaction(s) Facility (3 sources) levoFLOXacin Drug Allergy Unknown [facility] Other (2 sources) Penicillin V Drug Allergy Unknown [facility] [employer] Other (4 sources) Penicillin; Translations: [penicillin] Drug Allergy Unknown (qualifier value) [facility] Repository (1 source) levoFLOXacin Drug Allergy [address] [place] [address] Repository (1 source) Penicillins Drug allergy (disorder) [address] [place] [address] Repository (2 sources) Mold Extract; Translations: [Mold] Drug Allergy Unknown (qualifier value) [facility] Medications Current Medications Medication Drug Class(es) Dates Sig (Normalized) Sig (Original) [id number] 200 actuat albuterol 0.09 mg/actuat metered dose inhaler (8 sources) beta2-Adrenergic Agonist Start: 12-03-2023 take 2 puff(s) by inhalation every four hours for wheezing albuterol HFA (ProAir HFA) 90 mcg/act inhaler Indications: Pulmonary fibrosis (CMS/HCC) Inhale 2 puffs every 4 (four) hours if needed for wheezing 18 g 11 12/03/2023 Active Start: 02-16-2019 take 1 puff(s) by in halation four times daily ProAir HFA puff(s), Inhalation, [...] as needed Inhalation every 4 hrs Active amoxicillin 500 mg oral tablet (2 sources) Penicillin-class Antibacterial Start: 02-29-2024 End: 03-07-2024 take 1 tablet by mouth twice daily amoxicillin (Amoxil) 500 MG tablet Indications: S/P trigger finger release 1 tabs PO twice daily 14 tablet 02/29/2024 03/07/2024 Active cefuroxime 500 mg oral tablet (1 source) Cephalosporin Antibacterial take 0.5 tablet by mouth at bedtime Cefuroxime Axetil 500 MG 1/2 tablet Orally at bedtime Active ibuprofen 200 mg oral tablet (4 sources) Nonsteroidal Anti-inflammatory Drug take 1 tablet by mouth every six hours ibuprofen 200 MG tablet Take 200 mg by mouth every 6 (six) hours. Active metroNIDAZOLE 500 mg oral tablet (1 source) Nitroimidazole Antimicrobial take 1 tablet by mouth every twenty-four hours metroNIDAZOLE 500 MG 1 tablet Orally Once a day Active nabumetone 500 mg oral tablet (6 sources) Nonsteroidal Anti-inflammatory Drug Start: 12-03-2023 nabumetone (Relafen) 500 MG tablet Indications: Arthritis Take 1 tablet (500 mg) by mouth at noon and 1 tablet (500 mg) in the evening. Take with food. 180 tablet 3 12/03/2023 Active take 1 tablet by amanda th every twelve hours Nabumetone 500 MG 1 tablet Orally Twice a day prn Active tamsulosin hydrochloride 0.4 mg oral capsule (1 source) alpha-Adrenergic Cathie Start: 02-25-2019 take 1 capsule by mouth once daily tamsulosin 0.4 mg Cap 0.4 mg = 1 cap(s), Oral, Daily, # 90 cap(s), Refills(s) 1, Pharmacy: [facility]5 Start Date: 02/25/19 Status: Ordered Completed/Discontinued Medications Medication Drug Class(es) Dates Sig (Normalized) Sig (Original) traMADol hydrochloride 50 mg oral tablet (3 sources) Opioid Agonist Start: 02-17-2024 End: 02-29-2024 take 1 tablet by mouth every six hours for pain, then take 2 tablets by mouth every six hours for pain traMADol (Ultram) 50 MG tablet Indications: Trigger middle finger of left hand , Trigger ring finger of left hand May take 1 tablet (50 mg) by mouth every 6 (six) hours if needed for severe pain. May also take 2 tablets (100 mg) every 6 (six) hours if needed for severe pain. Do all this for 7 days. 20 tablet 02/17/2024 02/29/2024 Discontinued Problems Active Problems Problem Classification Problem Date Documented Date Episodic/Chronic Allergic reactions (4 sources) Flexural atopic dermatitis; Translations: [Other atopic dermatitis] Onset: 01-21-2023 01-21-2023 Chronic Asthma (5 sources) Asthma; Translations: [Unspecified asthma, uncomplicated] Onset: 01-21-2023 02-16-2019 Chronic Chronic obstructive pulmonary disease and bronchiectasis (1 source) Pulmonary emphysema 02-16-2019 Chronic Disorders of lipid metabolism (4 sources) Hyperlipidemia; Translations: [Hyperlipidemia, unspecified] Onset: 01-21-2023 01-21-2023 Chronic Diverticulosis and diverticulitis (4 sources) Diverticular disease; Translations: [Diverticulosis of intestine, part unspecified, without perforation or abscess without bleeding] Onset: 01-21-2023 01-21-2023 Chronic Esophageal disorders (4 sources) Gastroesophageal reflux disease; Translations: [Gastro-esophageal reflux disease without esophagitis] Onset: 09-21-2009 01-21-2023 Chronic Essential hypertension (4 sources) Benign essential hypertension; Translations: [Essential (primary) hypertension] Onset: 04-13-2023 04-13-2023 Chronic Genitourinary symptoms and ill-defined conditions (1 source) Urge incontinence of urine 02-16-2019 Chronic Genitourinary symptoms and ill-defined conditions (4 sources) Increased frequency of urination; Translations: [Nocturia] 02-16-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 Hyperplasia of prostate (5 sources) Benign prostatic hypertrophy with outflow obstruction; Translations: [Benign prostatic hyperplasia] Onset: 01-21-2023 02-16-2019 Chronic Nonspecific chest pain (4 sources) Chest pain, unspecified; Translations: [CHEST PAIN UNSPECIFIED] Onset: 09-09-2022 Episodic Osteoarthritis (9 sources) Arthritis; Translations: [Unspecified osteoarthritis, unspecified site] Onset: 01-21-2023 02-16-2019 Chronic Other acquired deformities (4 sources) Kyphosis deformity of spine; Translations: [Unspecified kyphosis, site unspecified] Onset: 01-21-2023 01-21-2023 Chronic Other connective tissue disease (2 sources) Triggering of digit; Translations: [Trigger finger, left middle finger] 02-17-2024 Episodic Other endocrine disorders (1 source) 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 Other hereditary and degenerative nervous system conditions (4 sources) Impaired cognition; Translations: [Mild cognitive impairment, so stated] Onset: 01-21-2023 01-21-2023 Chronic Other lower respiratory disease (3 sources) Interstitial lung disease; Translations: [Interstitial pulmonary disease, unspecified] Chronic Other lower respiratory disease (4 sources) Interstitial pulmonary disease, unspecified; Translations: [Interstitial pulmonary disease, unspecified] Onset: 10-24-2021 Resolved: 10-24-2021 Chronic Other lower respiratory disease (4 sources) Fibrosis of lung; Translations: [Pulmonary fibrosis, unspecified] Onset: 01-21-2023 01-21-2023 Chronic Other lower respiratory disease (1 source) Other forms of dyspnea; Translations: [OTHER FORMS OF DYSPNEA] Onset: 09-15-2022 Episodic Other male genital disorders (1 source) Encysted hydrocele 05-09-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 Other nervous system disorders (4 sources) Disorder of muscle; Translations: [Myopathy, unspecified] Onset: 03-12-2023 03-12-2023 Chronic Other upper respiratory disease (1 source) Disorder of nasal sinus 02-16-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 Other upper respiratory infections (4 sources) Chronic sinusitis; Translations: [Chronic sinusitis, unspecified] Onset: 02-06-2023 02-06-2023 Chronic Residual codes; unclassified (1 source) Localized edema; Translations: [LOCALIZED EDEMA] Onset: 09-15-2022 Episodic Unclassified (1 source) Interstitial pulmonary disease, unspecified; Translations: [Interstitial pulmonary disease, unspecified] Onset: 10-15-2022 Unclassified (1 source) Finding of sensation of bladder 02-16-2019 Past or Other Problems Problem Classification Problem Date Documented Date Episodic/Chronic Hemorrhoids (4 sources) External hemorrhoids; Translations: [Residual hemorrhoidal skin tags] Onset: 01-21-2023 01-21-2023 Episodic Joint disorders and dislocations; trauma-related (4 sources) Dislocation of temporomandibular joint; Translations: [Dislocation of jaw, unspecified side, initial encounter] Onset: 01-26-2023 01-26-2023 Episodic Malaise and fatigue (4 sources) Fatigue; Translations: [Other fatigue] Onset: 01-26-2023 01-26-2023 Episodic Other connective tissue disease (4 sources) Muscle pain; Translations: [Myalgia, unspecified site] Onset: 02-18-2023 02-18-2023 Episodic Other inflammatory condition of skin (4 sources) Pruritus of skin; Translations: [Pruritus, unspecified] Onset: 01-21-2023 01-21-2023 Episodic Other lower respiratory disease (4 sources) Parietoalveolar pneumopathy; Translations: [Other alveolar and parieto-alveolar conditions] Onset: 01-21-2023 01-21-2023 Episodic Other non-traumatic joint disorders (4 sources) Chronic pain of left upper limb; Translations: [Pain in left shoulder] Onset: 04-13-2023 04-13-2023 Episodic Spondylosis; intervertebral disc disorders; other back problems (4 sources) Cervical radiculopathy; Translations: [Radiculopathy, cervical region] Onset: 01-26-2023 01-26-2023 Episodic Sprains and strains (4 sources) Strain of muscle at thorax level; Translations: [Strain of muscle and tendon of unspecified wall of thorax, initial encounter] Onset: 04-13-2023 04-13-2023 Episodic Results Test Name Value Interpretation Reference Range [...] DO Normal Not Available CT chest wo [facility] 12-09-2022 CT chest wo [facility] [place] [address] CT Scan Report Signed Patient: Russell Bobby MR#: [id number] : 1940 Acct:[id number] Age/Sex: 82 / M ADM Date: 12/09/22 Loc: CT Room: Type: [facility] Attending Dr: Jamie Kent MD Copies to: [...] 04/25/2021. Impression dictated by: Gregorio Parikh Jr., Alonso12/09/2022 7:09 PM Dictation Location: [place] [address] Transcribed By: [facility] 12/09/221908 Dictated By: Gregorio Parikh Jr, DO 12/09/22 1635 Signed By: 12/09/221908 Normal [facility] NM STRESS/REST MULTIon 09-09 NM STRESS/REST MULTI Patient: RUSSELL BOBBY Exam Date: 09/09/2022 : 1940 Gender:M Ordering : DR NARAYAN LUU M.D. Admission #: [id number] Family : Order #: [id number] CLICK HERE TO VIEW EXAM RADIOLOGY REPORT [...] Null M.D. on 09/09/2022 at 13:31 Normal [facility] Vital Signs Date Time Vital Sign Value Performing Clinician Faci lity 02-29-2024 13:05-0400 Body height 167.6 cm Dirk Qoniac DO Work Phone: [facility] [employer] 02-29-2024 13:05-0400 Body mass index (BMI) [Ratio] 28.25 kg/m2 Dirk Relevvantos DO Work Phone: [employer] 02-29-2024 13:05-0400 Body weight 79.38 kg Dirk Relevvantos DO Work Phone: [facility] [employer] 04-08-2023 09:45-0500 Body height 167.64 cm Jamie Kent Other [employer] Other 04-08-2023 09:45-0500 Body mass index (BMI) [Ratio] 28.24 kg/m2 Jamie Kent Other [employer] Other 04-08-2023 09:45-0500 Body temperature 96.4 [degF] Jamie Kent Other [employer] Other 04-08-2023 09:45-0500 Body weight 79.38 kg Bober Yoli Other [employer] Other 04-08-2023 09:45-0500 Diastolic blood pressure 74 mm[Hg] Christopher Yoli Other [employer] Other 04-08-2023 09:45-0500 Respiratory rate 20 /min Bober Yoli Other [employer] Other 04-08-2023 09:45-0500 SaO2% (BldA) [Mass fraction] 98 % Bober Yoli Other [employer] Other 04-08-2023 09:45-0500 Systolic blood pressure 122 mm[Hg] Bober Yoli Other [employer] Other 03-26-2022 12:45-0500 Body height 167.64 cm Bober Yoli Other [employer] Other 03-26-2022 12:45-0500 Body mass index (BMI) [Ratio] 28.08 kg/m2 Bober Yoli Other [employer] Other 03-26-2022 12:45-0500 Body temperature 97.1 [degF] Bober Yoli Other [employer] Other 03-26-2022 12:45-0500 Body weight 78.93 kg Bober Yoli Other [employer] Other 03-26-2022 12:45-0500 Diastolic blood pressure 73 mm[Hg] Bober Yoli Other [employer] Other 03-26-2022 12:45-0500 Respiratory rate 20 /min Christkaraner Yoli Other [employer] Other 03-26-2022 12:45-0500 Systolic blood pressure 124 mm[Hg] Christopher Yoli Other [employer] Other 10-24-2021 12:45-0400 Body height 167.64 cm Christopher Yoli Other [employer] Other 10-24-2021 12:45-0400 Body mass index (BMI) [Ratio] 29.05 kg/m2 Christopher Yoli Other [employer] Other 10-24-2021 12:45-0400 Body temperature 97.4 [degF] Christopher Yoli Other [employer] Other 10-24-2021 12:45-0400 Body weight 81.65 kg Christkaraner Yoli Other [employer] Other 10-24-2021 12:45-0400 Diastolic blood pressure 80 mm[Hg] Christopher Yoli Other [employer] Other 10-24-2021 12:45-0400 Respiratory rate 20 /min Christopher Yoli Other [employer] Other 10-24-2021 12:45-0400 SaO2% (BldA) [Mass fraction] 94 % Christopher Yoli Other [employer] Other 10-24-2021 12:45-0400 Systolic blood pressure 129 mm[Hg] Jamie Kent Other [facility] Other Encounters Encounter Date Encounter Type Care Provider Facility Start: 02-29-2024 End: 02-29-2024 Bamboo flowsheet Dirk Tee Pocos DO Work Phone: [facility] Start: 02-29-2024 End: 02-29-2024 Bamboo flowsheet Dirk Tee Pocos DO Work Phone: [facility] Start: 02-29-2024 End: 02-29-2024 Patient encounter procedure Dirk Tee Pocos DO Work Phone: [facility] Comment on above: S/P trigger finger r elease (Primary Dx) Start: 02-29-2024 End: 02-29-2024 ambulatory DIRK Tee POCOS Not Available Start: 02-17-2024 End: 02-17-2024 Orders Only Dirk Tee Pocos DO Work Phone: [facility] Comment on above: Trigger middle finge r of left hand (Primary Dx); Trigger ring finger of left hand Start: 01-20-2024 End: 01-20-2024 ambulatory ARETHA POCOS Not Available Start: 01-15-2024 End: 01-15-2024 ambulatory Luis STRICKLAND Facility:[facility] Start: 01-15-2024 End: 01-15-2024 Patient encounter procedure Luis STRICKLAND [facility] Start: 12-02-2023 End: 12-02-2023 ambulatory OH CONTRERAS Not Available Start: 09-10-2023 Non-patient / Non-visit MD Narayan Luu Work Phone: [facility] Work Phone: Start: 09-10-2023 End: 09-10-2023 ambulatory Jamie Kent Facility:[facility] Start: 09-10-2023 End: 09-10-2023 ambulatory MD Narayan Luu Work Phone: [facility] Work Phone: Start: 09-10-2023 End: 09-10-2023 Patient encounter procedure MD Narayan Luu Work Phone: [facility]Res[facility] Therapy Work Phone: Start: 09-02-2023 End: 09-02-2023 ambulatory JESUS B APLING Not Available Start: 08-19-2023 End: 08-19-2023 ambulatory JESUS B APLING Not Available Start: 08-03-2023 End: 08-04-2023 ambulatory Monique Bray MD Facility:[facility] Start: 07-20-2023 End: 07-20-2023 ambulatory JESUS B APLING Not Available Start: 05-27-2023 End: 05-27-2023 ambulatory JESUS B APLING Not Available Start: 05-07-2023 End: 05-07-2023 ambulatory SHEBA Bradley OLIVEIRA Not Available Start: 04-22-2023 End: 04-22-2023 ambulatory JESUS B APLING Not Available Start: 04-13-2023 Patient encounter procedure Dirk Brito DO Work Phone: [facility] Start: 04-13-2023 End: 04-13-2023 ambulatory NARAYAN LUU Not Available Start: 04-08-2023 End: 04-08-2023 ambulatory Jamie Kent Other [facility] Other Start: 04-08-2023 Office outpatient visit 25 minutes Jamie Kent [facility] Start: 03-18-2023 End: 03-18-2023 ambulatory Jamie Kent Facility:[facility] Start: 03-18-2023 End: 03-18-2023 ambulatory MD Narayan Luu Work Phone: [facility] Work Phone: Start: 03-18-2023 End: 03-18-2023 Patient encounter procedure MD Narayan Luu Work Phone: [facility]Res[facility] Therapy Work Phone: Start: 12-09-2022 End: 12-09-2022 ambulatory Jamie Kent Facility:[facility] Start: 12-09-2022 End: 12-09-2022 ambulatory MD Narayan Luu Work Phone: [facility] Work Phone: Start: 12-09-2022 End: 12-09-2022 Patient encounter procedure MD Narayan Luu Work Phone: [facility]-CT Scan [place] Work Phone: Start: 10-15-2022 End: 10-15-2022 ambulatory Jamie Kent Facility:[facility] Start: 10-15-2022 End: 10-15-2022 ambulatory MD Narayan Luu Work Phone: [facility] Work Phone: Start: 10-15-2022 End: 10-15-2022 Patient encounter procedure MD Narayan Luu Work Phone: [facility]Res[facility] Work Phone: Start: 09-09-2022 End: 09-10-[address] NARAYAN LUU Facility: Start: 03-26-2022 End: 03-26-2022 ambulatory Jamie Kent Other [facility] Other Start: 03-26-2022 Office outpatient visit 15 minutes Jamie Kent [facility] Start: 03-18-2022 End: 03-18-2022 ambulatory MD Narayan Luu Work Phone: [facility] Work Phone: Start: 03-18-2022 End: 03-18-2022 Patient encounter procedure MD Narayan Luu Work Phone: [facility]Respiratory Therapy Start: 11-06-2021 End: 11-06-2021 Patient encounter procedure MD Narayan Luu Work Phone: [facility] Start: 10-24-2021 End: 10-24-2021 ambulatory Jamie Kent Other [employer] Other Start: 10-24-2021 Office outpatient visit 25 minutes Jamie Kent [facility] Start: 12-08-2016 End: 12-09-2016 Ambulatory DEFAULT PHYSICIAN Facility:[facility] Start: 11-20-2016 End: 11-21-2016 Ambulatory DEFAULT PHYSICIAN Facility:[facility] Procedures Date Procedure Procedure Detail Performing Clinician Start: 12-09-2022 CT of chest without contrast MD Narayan Luu Work Phone: back surgery Luis STRICKLAND Colonoscopy Luis STRICKLAND H/O: surgery S/P trigger fing er release Dirk Brito DO Work Phone: Tonsillectomy Luis STRICKLAND Vasectomy Luis STRICKLAND Plan of Treatment Date Care Activity Detail Author Start: 03-07-2024 End: 03-07-2024 Patient encounter procedure 03/07/2024 1:00 PM EDT Office Visit [facility] [address] [place] [phone] Dirk Brito DO [address] [place] [address] [facility] Start: 02-29-2024 End: 02-29-2024 Patient encounter procedure [facility] Comment on above: Arrived Start: 02-18-2024 End: 02-18-2024 Patient encounter procedure 02/18/2024 8:00 AM EDT Procedure Visit [facility] Dirk Brito DO [address] [place] [address] [facility] Immunizations Immunization Date Immunization Notes Care Provider Fa cili 02-21-2022 COVID-19 Pfizer (bivalent) Jamie Yoli Other [facility] 02-19-2022 Influenza, High-dose Seasonal, Quadrivalent, Preservative Free Dirk Pocos DO Work Phone: [facility] 10-04-2021 COVID-19 Pfizer Christopher Yoli Other [facility] 04-16-2021 Influenza, Seasonal, Quadrivalent, Adjuvanted Dirk Pocos DO Work Phone: [facility] 02-11-2021 COVID-19 Vaccine Pfi zer - Documentation Purposes Only Jamie Yoli Other [facility] 06-23-2020 Do not use COVID-19 Pfizer 2 dose Christopher Yoli Other [facility] 06-02-2020 Do not use COVID-19 Pfizer 2 dose Christopher Yoli Other [facility] 03-01-2020 pneumococcal conjuga te vaccine, 13 valent Dirk Pocos DO Work Phone: [facility] 02-21-2020 influenza, high dose seasonal, preservative-free Dirk Pocos DO Work Phone: [facility] 04-20-2019 pneumococcal conjuga te vaccine, 13 valent Dirk Pocos DO Work Phone: [facility] 03-03-2019 influenza, high dose seasonal, preservative-free Dirk Pocos DO Work Phone: [facility] 02-08-2019 influenza virus vaccine, live, attenuated, for intranasal use Luis STRICKLAND [facility] 02-17-2018 influenza, high dose seasonal, preservative-free Dirk Pocos DO Work Phone: [facility] 01-21-2017 influenza, high dose seasonal, preservative-free Dirk Pocos DO Work Phone: [facility] 12-25-2016 tetanus toxoid, redu keely diphtheria toxoid, and acellular pertussis vaccine, adsorbed Dirk Pocos DO Work Phone: [facility] 03-12-2016 influenza, high dose seasonal, preservative-free Dirk Pocos DO Work Phone: [facility] 04-16-2015 influenza, high dose seasonal, preservative-free Dirk Pocos DO Work Phone: [facility] 02-08-2014 influenza, high dose seasonal, preservative-free Dirk Pocos DO Work Phone: [facility] 04-10-2013 pneumococcal polysaccharide vaccine, 23 valent Dirk Pocos DO Work Phone: [facility] 02-26-2012 seasonal influenza, intradermal, preservative free Dirk Verduzcoos DO Work Phone: [facility] 01-27-2011 pneumococcal polysaccharide vaccine, 23 valent Dirk Pocos DO Work Phone: [facility] Payers Date Payer Category Payer Private Health Insurance 2022 Self-pay [id number] 2022 Medicaid [employer] MEDICARE A DVANTAGE [id number] 2022 Medicare AETNA MEDICARE A DVANTAGE AETNA MEDICARE REPLACEMENT [id number] 2022-Present [address] [place] [address] [id number] 2019 Private Health Insurance [id number] 1961 Medicare [id number] 1940 Unknown [id number] 2.16.840.1.881731.3.579.2. 593 1940 Unknown [id number] 2.16.840.1.207745.3.579.2. 196 1940 Unknown [id number] 2.16.840.1.827313.3.579.2. 727 1940 Unknown [id number] 2.16.840.1.239262.3.579.2. 1259 1938 Unknown [id number] 2.16.840.1.411471.3.579.2. 1259 1938 Unknown [id number] 2.16.840.1.567346.3.579.2. 1259 1938 Unknown [id number] 2.16.840.1.537084.3.579.2. 1259 1938 Unknown [id number] 2.16.840.1.437472.3.579.2. 1259 1938 Unknown [id number] 2.16.840.1.394001.3.579.2. 1259 1938 Unknown [id number] 2.16.840.1.631323.3.579.2. 1259 1938 Unknown [id number] 2.16.840.1.219745.3.579.2. 1259 1940 Unknown [id number] 2.16.840.1.415315.3.579.2. 1259 1938 Unknown [id number] 2.16.840.1.600987.3.579.2. 1259 1938 Unknown [id number] 2.16.840.1.163978.3.579.2. 1259 1938 Unknown [id number] 2.16.840.1.640497.3.579.2. 1259 1938 Unknown [id number] 2.16.840.1.475302.3.579.2. 1259 Unknown Unknown [id number] Unknown [id number] Unknown [id number] Unknown [id number] Social History Date Type Detail Facility Start: 04-13-2023 End: 05-06-2023 Sex Assigned At [facility] Start: 1940 Sex Assigned At Male [facility] Start: 09-10-2023 Tobacco smoking stat [facility] Ex-smoker (finding) [facility] Start: 05-09-2019 End: 01-21-2023 Tobacco smoking status Never smoked tobacco (finding) [facility] Tobacco smoking status Never [facility] Start: 01-21-2023 Tobacco use and exposure Smoke less tobacco non-user [facility] Start: 01-20-2024 End: 02-29-2024 Alcoholic beverage intake [facility] (finding) [facility] Start: 04-13-2023 End: 05-06-2023 History of Social function [facility] Within the last year , have you been afraid of your partner or ex-partner? No [facility] Do you belong to any clubs or organizations such as jehovah's witness groups, unions, fraternal or athletic groups, or school groups? Yes [facility] Are you now , , , , never or living with a partner? [facility] How often to you hav e a drink containing alcohol? Never [facility] Do you feel stress - tense, restless, nervous, or anxious, or unable to sleep at night because your mind is troubled all the time - these days [OSQ] Not at all [facility] (I/We) worried wheth er (my/our) food would run out before (I/we) got money to buy more. Never true [facility] Start: 02-22-2023 Alcohol Comment caffeine: coffee,chocolate [facility] Start: 1940 Sex assigned at Not on file N [facility] Clinical Notes 10-24-2021 to 02-29-2024 Sheba De La Rosa - 02/29/2024 1:15 PM EDT Note Date & Type Note Facility 02-29-2024 History of Presen t illness Narrative Images from the original note were not included. Good Bobby is a 83 y.o. male presents with chief complaint of follow up left mid and ring finger trigger release, 02-18-2024. HPI: Good returns here today for repeat evaluation of his hand. He is having extreme pain. He denies any fever or chills. No numbness or tingling. He states that this is much more than he did bargain for. SUBJECTIVE: MEDICATIONS: Current Outpatient Medications Medication Instructions albuterol HFA (ProAir HFA) 90 mcg/act inhaler 2 puffs, Inhalation, Every 4 hours PRN amoxicillin (Amoxil) 500 MG tablet 1 tabs PO twice daily ibuprofen 200 mg, Every 6 hours nabumetone (RELAFEN) 500 mg, Oral, Twice a day (mid-day and evening), Take with food ALLERGIES: No Known Allergies SURGICAL HISTORY: Past Surgical History: Procedure Laterality Date BACK SURGERY 2007 kyphoplasty LUMBAR SPINE SURGERY [address] Buckley - quoc shots;Disease:Left hip bursitis OTHER SURGICAL HISTORY 08/2018 Injections and RFA OTHER SURGICAL HISTORY 2001 ENT surgery [facility] OTHER SURGICAL HISTORY 03/[address] Strickland SINUS SURGERY TOE SURGERY Right 04/2023 great toe, ingrown toe nail TRIGGER FINGER RELEASE Left 2013 Trigger thumb TRIGGER FINGER RELEASE Left 02/18/2024 LMF LRF DAP FAMILY HISTORY: Family History Problem Relation Name Age of Onset Glaucoma Mother Heart disease Father Psoriasis Neg Hx SOCIAL HISTORY: Social History Tobacco Use Smoking status: Never Smokeless tobacco: Never Substance Use Topics Alcohol use: Not Currently Comment: caffeine: coffee,chocolate Depression: Not at risk (04/13/2023) PHQ-2 PHQ-2 Score: 0 REVIEW OF SYMPTOMS: The review of systems, history and current medications list are all reviewed today. OBJECTIVE: Visit Vitals Ht 5' 6 Wt 175 lb BMI 28.25 kg/m Smoking Status Never BSA 1.92 m Physical Exam His orthopedic exam shows no gross changes. He does have a couple of pockets of some what appears to be purulence overlying the ring finger area. There is some surrounding erythema. This simply looks like suture erythema. His neurocirculatory status is overall grossly intact. His pulses are otherwise brisk. Examination of the x-ray, none new here today. ASSESSMENT AND PLAN: Assessment/Plan Left middle finger and ring finger trigger digits. The findings are discussed. He does appear to have a superficial surgical site infection over the area. We did go ahead and give him a little bit of oral antibiotic. We will couple this with Neosporin cream. We did remove his sutures which was extremely painful for him. We will see him back here in one week for recheck and review. All of his questions are otherwise answered this day. He is discharged in stable condition. He will call with any problems in the meantime. Cosigned by Dirk Brito DO at 03/02/2024 12:40 PM EDT documented in this encounter [facility] 04-08-2023 Evaluation note Encounter Date Diagnosis Assessment Notes Mar, Interstitial lung disease (ICD-10 - J84.9) [employer] Other 11-16-2022 Evaluation note* Encounter Date Diagnosis Assessment Notes Treatment Notes Treatment Clinical Notes Mar, Interstitial lung disease (ICD-10 - J84.9) [employer] Other 06-16-2022 Evaluation note* Encounter Date Diagnosis Assessment Notes Treatment Notes Treatment Clinical Notes Oct, Interstitial lung disease (ICD-10 - J84.9) [employer] Other Evaluation + Plan note No data available for this section [facility] [place] evaluation noteNo assessment information available [facility] Work Phone: Evaluation note* Diagnosis Trigger middle finger of left hand- Primary Trigger ring finger of left hand [facility] Diagnosis Dislocation of temporomandibular joint, initial encounter- Primary Fatigue, unspecified type Cervical radiculopathy Brachial neuritis or radiculitis nos Cervical radiculopathy- Primary Brachial neuritis or radiculitis nos Fatigue, unspecified type 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 Routine general medical examination at health care facility- Primary Routine general medical examination at a health care facility Benign essential hypertension (CMS/HCC) Essential hypertension, benign Abnormal glucose tolerance test Impaired glucose tolerance test Medicare annual wellness visit, subsequent Hyperlipidemia, unspecified hyperlipidemia type (CMS/HCC) Cervical radiculopathy Brachial neuritis or radiculitis nos Thoracic myofascial strain, initial encounter Chronic left shoulder pain Pain in joint, shoulder region S/P trigger finger release- Primary [facility] N[facility] - Reported* Type Description Date Medical History lt. hip bursitis Medical History sinusitis Medical History asthma Medical History diverticulosis Medical History pulmonary fibrosis Medical History pneumonia Medical History interstitial lung disease Surgical History sinus surgery Surgical History back surgery Surgical History kyphoplasty 2008 Surgical History lumbar back 1995 Surgical History trigger thumb left 2013 Surgical History RFA inj. 2019 Surgical History hydrocele repair rt. 2019 Surgical History ENT surgery 2002 Hospitalization History surgery [employer] Other History general Narrative - Reported* Type Description Date Medical History lt. hip bursitis Medical History sinusitis Medical History asthma Medical History diverticulosis Medical History pulmonary fibrosis Medical History pneumonia Medical History interstitial lung disease Surgical History sinus surgery Surgical History back surgery Surgical History kyphoplasty 2008 Surgical History lumbar back 1995 Surgical History trigger thumb left 2013 Surgical History RFA inj. 2019 Surgical History hydrocele repair rt. 2019 Surgical History ENT surgery 2002 Hospitalization History surgery Hospitalization History TB ER pleurcy 07/2022 [employer] Other Hospital Discharge instructions No data available for this section [facility] [employer] progress note No data available for this section [facility] Summary Purpose Family History Relationship Condition Age at Onset Recorded Date/T thomas father Heart disease Unknown Unknown Not Specified Glaucoma Unknown Advance Directives Advance Directive Response Recorded Date/ Time Advance [...] section and content) DATE CREATED AUTHOR 11/04/2017 [facility] DATE CREATED AUTHOR AUTHOR'S ORGANIZ ATION 09/16/2022 [facility] DATE CREATED AUTHOR AUTHOR'S ORGANIZ ATION 09/15/2023 [facility] DATE CREATED AUTHOR AUTHOR'S ORGANIZ ATION 09/19/2023 [facility] DATE CREATED AUTHOR AUTHOR'S ORGANIZ ATION 01/17/2024 [facility] DATE CREATED AUTHOR AUTHOR'S ORGANIZ ATION 03/02/2024 [facility] EPIC REASON FOR VISIT (unrecogniz ed section and content) Reason Comments Pain Care Teams (unrecognized sec tion and content) [...] Other Provider Active 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 [address] [place] [address] PCP - [facility] 09/16/22 [employer] Plant [employer] Relationship Specialty Start Date End Date Narayan Luu MD [address] [facility] [address] [place] [address] PCP - [employer] 05/11/20 Narayan Luu MD [address] [facility] [address] [place] [address] PCP - [facility] 09/16/22 Goals (unrecognized section and content) Goals may [...] BE BASED ON THE PRIMARY CLINICAL RECORDS. [facility]. provides no warranty or guarantee of the accuracy or completeness of information in this document.
[2024-03-06 15:05] VITALS: BP 129/74; PULSE 97; TEMP 36.8; O2SAT 96; BMI 26.6
[2024-03-06 15:39] LABS: Influenza Virus A Antigen Negative; Influenza Virus B Antigen Negative; Internal Control Within Normal Limits; SARS-CoV-2 Ag POSITIVE (NEGATIVE)
--- NOTE | 2024-03-06 16:21 | XR_ITS ---
The [address] [address] Patient Name: MARINA PARTIDA MRN: [id number] date: 1940 Sex: M Assigned Patient Location: ER Current Patient Location: ED.MAIN Accession/Order Number: [id number] Exam Date: 03/06/2024 16:40 Report Date: 03/06/2024 18:51 At the request of: ENEDELIA RUDD Procedure: XR chest 1V EXAM: XR chest 1V HISTORY: covid 2 weeks fever COMPARISON: None. TECHNIQUE: AP upright chest x-ray. FINDINGS: Interstitial density right midlung and at the lung bases right greater than left. No comparison available pneumonitis versus fibrosis. Follow-up recommended. Left mid and upper lung field clear. No dense consolidation. Heart size normal for technique. Costophrenic angles poorly seen but no definite pleural effusion. No pneumothorax. XR/XR chest 1V IMPRESSION: Interstitial density most prominent right midlung and lung base question fibrosis versus pneumonitis. Follow-up recommended. Electronically authenticated by: OSEI EDOUARD Date: 03/06/2024 18:51
[2024-03-06 16:45] VITALS: O2SAT 96
--- NOTE | 2024-03-06 18:37 | ED_ITS ---
HPI HPI - General Adult General Chief complaint: Upper Respiratory Infection Stated complaint: FEVER Time Seen by Provider: 03/06/24 15:50 Source: patient Mode of arrival: walk-in Limitations: no limitations History of Present Illness HPI narrative: The patient is coming to us with a fever and cough for the last 2 weeks The patient denies any difficulty breathing Related Data Home Medications ?Medication ?Instructions ?Recorded ?Confirmed albuterol sulfate 90 mcg/actuation 1 inh inhalation .everyday PRN 06/02/2301/09 breath activated powder inhaler shortness of breath or wheezing ibuprofen 200 mg capsule 200 mg PO TID PRN pain 06/02/23 01/26/24 triamcinolone acetonide 0.1 % 1 applic topical DAILY PRN itching 06/02/23 01/26/24 topical cream nabumetone 500 mg tablet 500 mg PO DAILY 01/26/24 01/26/24 Previous Rx's ?Medication ?Instructions ?Recorded azithromycin 250 mg tablet See Rx Instructions PO .COMPLEX #6 03/06/24 (Zithromax Z-Ytree) tabs Allergies Allergy/AdvReac Type Severity Reaction Status Date / Time No Known Drug Allergies Allergy Verified 01/26/24 08:46 Opioid HPI Opioid Management Most Recent Opioid Data: Last Pain Scale 7 01/26/24 08:43 01/26/24 Review of Systems ROS Status of ROS 10 or more systems reviewed and unremark able except as noted in history and below PFSH [facility] Medical History Osteoarthritis ?M19.90 - Unspecified osteoarthritis, unspecified site (ICD-10) Neck pain ?M54.2 - Cervicalgia (ICD-10) Pleurisy ?R09.1 - Pleurisy (ICD-10) Lung fibrosis ?J84.10 - Pulmonary fibrosis, unspecified (ICD-10) Surgical History S/P hernia repair ?Z98.890 - Other specified postprocedural states (ICD-10) ?Z87.19 - Personal history of other diseases of the digestive system (ICD-10) Status post lung surgery ?Z98.890 - Other specified postprocedural states (ICD-10) H/O lumbosacral spine surgery ?Z98.890 - Other specified postprocedural states (ICD-10) Exam Narrative Exam Narrative: Nurses notes and vital signs reviewed and patient is not hypoxic. General: Well-appearing and in no apparent distress. Skin: Warm, dry, no pallor noted. No rash. Head: Normocephalic, atraumatic. Neck: Supple, non-tender. Eye: Pupils are equal, round and EOMI. No scleral icterus. Ears, Nose, Mouth, and Throat: TM are clear, no nasal mucosal hypertrophy. Oral mucosa is moist, no posterior oropharynx erythema, uvula is mid-line Cardiovascular: Regular Rate and Rhythm without murmur, gallop or rub. Respiratory: No accessory muscle use or respiratory distress. Lungs are clear to auscultation, no wheezing, rales or rhonchi Chest Wall: no tenderness Back: No midline thoracic or lumbar vertebral tenderness. No CVA tenderness Musculoskeletal: normal ROM, no calf or popliteal tenderness, no lower extremity edema/swelling GI: Abdomen is soft, non-distended. Normal bowel sounds. No masses appreciated. No tenderness to palpation. No rebound, guarding, or rigidity noted. Neurological: A&O x4. No cranial nerve dysfunction observed. No truncal ataxia. Moves all extremities. Sensation intact. Psychiatric: Cooperative and interactive. Normal mood and affect. Constitutional Vital Signs, click to edit/add: Last Vital Signs Temp 98.2 F 03/06/24 15:05 Pulse 97 H 03/06/24 15:05 Resp 18 03/06/24 15:05 BP 129/74 03/06/24 15:05 Pulse Ox 96 03/06/24 16:45 O2 Del Method Room Air 03/06/24 16:45 Course Vital Signs Vital signs: Vital Signs Temperature 98.2 F 03/06/24 15:05 Pulse Rate 97 H 03/06/24 15:05 Respiratory Rate 18 03/06/24 15:05 Blood Pressure 129/74 03/06/24 15:05 Pulse Oximetry 96 03/06/24 15:05 Oxygen Delivery Method Room Air 03/06/24 15:05 Temperature 98.2 F 03/06/24 15:05 Pulse Rate 97 H 03/06/24 15:05 Respiratory Rate 18 03/06/24 15:05 Blood Pressure 129/74 03/06/24 15:05 Pulse Oximetry 96 03/06/24 16:45 Oxygen Delivery Method Room Air 03/06/24 16:45 Medical Decision Making MDM Narrative Medical decision making narrative: The patient COVID test is positive With the fact that the patient chest x-ray shows possible infiltrate in the prelim reading and the fact that he has been having fever and cough for the last 2 weeks the patient will be treated with antibiotic for possible underlying pneumonia Patient was discharged home with Z-Tyree The patient is to follow up with primary care physician in next 2-3 days or to return to the emergency department should any of the signs or symptoms worsen or new symptoms develop. The patient agrees with the following Diagnosis and Treatment plan and the patient will be discharged home. Lab Data Labs: Lab Results 03/06/24 Range/Units 15:10 Influenza Type A Ag Negative Influenza Type B Ag Negative SARS-CoV-2 Ag (CV2AG) Positive A (NEGATIVE) Discharge Plan Discharge Chief Complaint: Upper Respiratory Infection Clinical Impression: COVID-19, Pneumonia Patient Disposition: Home, Self-Care Time of Disposition Decision: 17:10 Condition: Good Prescriptions / Home Meds: New azithromycin [Zithromax Z-Tyree] 250 mg tablet See Rx Instructions .ROUTE .COMPLEX Qty: 6 0RF Rx Instructions: For 250 mg dose pack: take 500 mg today (day 1), then 250 mg for 4 days (days 2-5) No Action albuterol sulfate 90 mcg/actuation aerosol powdr breath activated 1 inh inhalation .everyday PRN (Reason: shortness of breath or wheezing) ibuprofen 200 mg capsule 200 mg PO TID PRN (Reason: pain) triamcinolone acetonide 0.1 % cream 1 applic topical DAILY PRN (Reason: itching) nabumetone 500 mg tablet 500 mg PO DAILY Print Language: Burmese Instructions: Community Acquired Pneumonia (DC), COVID-19 (Coronavirus Disease 2019) (ED) Referrals: [facility]ON [facility] [Primary Care Provider] - 1 week Discharge Date/Time: 03/06/24 17:19
== END 2024-03-06 17:19 | disposition home or self-care (01) ==
PROVIDERS: Emergency Provider Emergency Medicine; PCP Family Medicine
DX: U07.1 COVID-19 (principal); J18.9 Pneumonia, unspecified organism
CPT/HCPCS: 71045; 87804; 87811; 99284

== ENCOUNTER 2024-04-12 07:29 | Day surgery (SDC) | payer MEDICARE, SELFPAY ==
--- OUTSIDE RECORDS SUMMARY | 2024-04-12 07:32 | XMS_ITS | CCD ---
Author Organization [facility] Care Team Providers Care Cigarette Catcher Name Role Phone PHYSICIAN, DEFAULT Unavailable Unavailable PHYSICIAN, DEFAULT Unavailable Unavailable PHYSICIAN, DEFAULT Unavailable Unavailable PHYSICIAN, DEFAULT Unavailable Unavailable Jamie Kent [phone] MD Narayan Luu Primary Care Provider MD Jamie Kent Attending Provider [phone] MD Narayan Luu Primary Care Provider [phone] MD Jamie Kent Attending Provider BELL, DR MASON Attending Unavailable BELL, DR MASON Consulting Unavailable BELL, DR MASON Primary Care Unavailable BELL, DR MASON Admitting Unavailable ZIEBER, DR ROGERIO Patel Consulting Unavailable Bell, MD Narayan Chung Primary Care Provider MD Jamie Kent Attending Provider [phone] MD Narayan Luu Primary Care Provider [phone] MD Jamie Kent Attending Provider Katarina SHAH, [...] New Primary Care Unavailable Jamie Kent Admitting Jamei Bartlett Attending Narayan New Primary Care Unavailable NARAYAN LUU Primary Care Physician [phone] Luis STRICKLAND Attending Unavailable Narayan Luu MD Unavailable Narayan Luu MD Primary Care Provider SHEBA OLIVEIRA Attending Unavailable APLING, JESUS Ledezma Attending Unavailable APLING, JESUS Ledezma Referring Unavailable APLING, JESUS Ledezma Attending Unavailable APLING, JESUS Ledezma Attending Unavailable APLING, JESUS Ledezma Referring Unavailable BELLNARAYAN Attending Unavailable OH CONTRERAS Attending Unavailable POCOS, DIRK Tee Referring Unavailable POCOS, DIRK Tee Attending Unavailable POCOS, DIRK Tee Referring Unavailable APLING, JESUS Ledezma Attending Unavailable APLING, JESUS Ledezma Referring Unavailable POCOS, DIRK Tee Attending Unavailable POCOS, DIRK Tee Referring Unavailable POCOS, DIRK Tee Attending Unavailable Allergies Allergy Classification Reported Allergen(s) Allergy Type Date of Onset Reaction(s) Facility (3 sources) levoFLOXacin Drug Allergy Unknown [facility] Other (2 sources) Penicillin V Drug Allergy Unknown [facility] Other (4 sources) Penicillin; Translations: [penicillin] Drug Allergy Unknown (qualifier value) [facility] Repository (1 source) levoFLOXacin Drug Allergy [address] [place] [address] Repository (1 source) Penicillins Drug allergy (disorder) [address] [place] [address] Repository (2 sources) Mold Extract; Translations: [Mold] Drug Allergy Unknown (qualifier value) [facility] Medications Current Medications Medication Drug Class(es) Dates Sig (Normalized) Sig (Original) [id number] 200 actuat albuterol 0.09 mg/actuat metered dose inhaler (12 sources) beta2-Adrenergic Agonist Start: 12-03-2023 take 2 [...] as needed Inhalation every 4 hrs Active azithromycin 250 mg oral tablet (3 sources) Macrolide Antimicrobial Start: 03-06-2024 azithromycin (Zithromax) 250 MG tablet 03/06/2024 Active cefdinir 300 mg oral capsule (1 source) Cephalosporin Antibacterial Start: 03-08-2024 End: 03-18-2024 take 1 capsule by mouth in the morning cefdinir (Omnicef) 300 MG capsule Indications: Pneumonia due to COVID-19 virus Take 1 capsule (300 mg) by mouth in the morning and 1 capsule (300 mg) before bedtime. Do all this for 10 days. 20 capsule 03/08/2024 03/18/2024 Active cefuroxime 500 mg oral tablet (1 source) Cephalosporin Antibacterial take 0.5 tablet by mouth at bedtime Cefuroxime Axetil 500 MG 1/2 tablet Orally at bedtime Active ibuprofen 200 mg oral tablet (8 sources) Nonsteroidal Anti-inflammatory Drug take 1 tablet by mouth every six hours ibuprofen 200 MG tablet Take 200 mg by mouth every 6 (six) hours. Active metroNIDAZOLE 500 mg oral tablet (1 source) Nitroimidazole Antimicrobial take 1 tablet by mouth every twenty-four hours metroNIDAZOLE 500 MG 1 tablet Orally Once a day Active nabumetone 500 mg oral tablet (10 sources) Nonsteroidal Anti-inflammatory Drug Start: 12-03-2023 nabumetone (Relafen) 500 MG tablet Indications: Arthritis Take 1 tablet (500 mg) by mouth at noon and 1 tablet (500 mg) in the evening. Take with food. 180 tablet 3 12/03/2023 Active take 1 tablet by amanda th every twelve hours Nabumetone 500 MG 1 tablet Orally Twice a day prn Active predniSONE 10 mg oral tablet (1 source) Start: 03-08-2024 End: 03-24-2024 take 4 tablets by mouth once daily, then take 3 tablets by mouth once daily, then take 2 tablets by mouth once daily, then take 1 tablet by mouth once daily predniSONE (Deltasone) 10 MG tablet Indications: Pneumonia due to COVID-19 virus Take 4 tablets (40 mg) by mouth Daily for 4 days, THEN 3 tablets (30 mg) Daily for 4 days, THEN 2 tablets (20 mg) Daily for 4 days, THEN 1 tablet (10 mg) Daily for 4 days. 40 tablet 03/08/2024 03/24/2024 Active tamsulosin hydrochloride 0.4 mg oral capsule (1 source) alpha-Adrenerg ic Cathie Start: 02-25-2019 take 1 capsule by mouth once daily tamsulosin 0.4 mg Cap 0.4 mg = 1 cap(s), Oral, Daily, # 90 cap(s), Refills(s) 1, Pharmacy: [place] [address] Start Date: 02/25/19 Status: Ordered Completed/Discontinued Medications Medication Drug Class(es) Dates Sig (Normalized) Sig (Original) amoxicillin 500 mg oral tablet (5 sources) Penicillin-class Antibacterial Start: 02-29-2024 End: 03-07-2024 take 1 tablet by mouth twice daily amoxicillin (Amoxil) 500 MG tablet Indications: S/P trigger finger release 1 tabs PO twice daily 14 tablet 02/29/2024 03/07/2024 Discontinued traMADol hydrochloride 50 mg oral tablet (3 [...] Problem Date Documented Date Episodic/Chronic Allergic reactions (8 sources) Flexural atopic dermatitis; Translations: [Other atopic dermatitis] Onset: 01-21-2023 01-21-2023 Chronic Asthma (9 sources) Asthma; Translations: [Unspecified asthma, uncomplicated] Onset: 01-21-2023 02-16-2019 Chronic Chronic obstructive pulmonary disease and bronchiectasis (1 source) Pulmonary emphysema 02-16-2019 Chronic Disorders of lipid metabolism (8 sources) Hyperlipidemia; Translations: [Hyperlipidemia, unspecified] Onset: 01-21-2023 01-21-2023 Chronic Diverticulosis and diverticulitis (8 sources) Diverticular disease; Translations: [Diverticulosis of intestine, part unspecified, without perforation or abscess without bleeding] Onset: 01-21-2023 01-21-2023 Chronic Esophageal disorders (8 sources) Gastroesophageal reflux disease; Translations: [Gastro-esophageal reflux disease without esophagitis] Onset: 09-21-2009 01-21-2023 Chronic Essential hypertension (8 sources) Benign essential hypertension; Translations: [Essential (primary) hypertension] Onset: 04-13-2023 04-13-2023 Chronic Genitourinary symptoms and ill-defined conditions (1 source) Urge incontinence of urine 02-16-2019 Chronic Genitourinary symptoms and ill-defined conditions (4 sources) Increased frequency of urination; Translations: [Nocturia] 02-16-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 Hyperplasia of prostate (9 sources) Benign prostatic hypertrophy with outflow obstruction; Translations: [Benign prostatic hyperplasia] Onset: 01-21-2023 02-16-2019 Chronic Nonspecific chest pain (4 sources) Chest pain, unspecified; Translations: [CHEST PAIN UNSPECIFIED] Onset: 09-09-2022 Episodic Osteoarthritis (17 sources) Arthritis; Translations: [Unspecified osteoarthritis, unspecified site] Onset: 01-21-2023 02-16-2019 Chronic Other acquired deformities (8 sources) Kyphosis deformity of spine; Translations: [Unspecified kyphosis, site unspecified] Onset: 01-21-2023 01-21-2023 Chronic Other connective tissue disease (2 sources) Triggering of digit; Translations: [Trigger finger, left middle finger] 02-17-2024 Episodic Other endocrine disorders (1 source) 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 Other hereditary and degenerative nervous system conditions (8 sources) Impaired cognition; Translations: [Mild cognitive impairment, so stated] Onset: 01-21-2023 01-21-2023 Chronic Other lower respiratory disease (3 sources) Interstitial lung disease; Translations: [Interstitial pulmonary disease, unspecified] Chronic Other lower respiratory disease (4 sources) Interstitial pulmonary disease, unspecified; Translations: [Interstitial pulmonary disease, unspecified] Onset: 10-24-2021 Resolved: 10-24-2021 Chronic Other lower respiratory disease (8 sources) Fibrosis of lung; Translations: [Pulmonary fibrosis, unspecified] Onset: 01-21-2023 01-21-2023 Chronic Other lower respiratory disease (1 source) Other forms of dyspnea; Translations: [OTHER FORMS OF DYSPNEA] Onset: 09-15-2022 Episodic Other male genital disorders (1 source) Encysted hydrocele 05-09-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 Other nervous system disorders (8 sources) Disorder of muscle; Translations: [Myopathy, unspecified] Onset: 03-12-2023 03-12-2023 Chronic Other upper respiratory disease (1 source) Disorder of nasal sinus 02-16-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 Other upper respiratory infections (8 sources) Chronic sinusitis; Translations: [Chronic sinusitis, unspecified] Onset: 02-06-2023 02-06-2023 Chronic Residual codes; unclassified (1 source) Localized edema; Translations: [LOCALIZED EDEMA] Onset: 09-15-2022 Episodic Unclassified (1 source) Interstitial pulmonary disease, unspecified; Translations: [Interstitial pulmonary disease, unspecified] Onset: 10-15-2022 Unclassified (1 source) Finding of sensation of bladder 02-16-2019 Viral infection (1 source) COVID-19; Translations: [Pneumonia due to other virus not elsewhere classified] 03-08-2024 Episodic Past or Other Problems Problem Classification Problem Date Documented Date Episodic/Chronic Hemorrhoids (8 sources) External hemorrhoids; Translations: [Residual hemorrhoidal skin tags] Onset: 01-21-2023 01-21-2023 Episodic Joint disorders and dislocations; trauma-related (8 sources) Dislocation of temporomandibular joint; Translations: [Dislocation of jaw, unspecified side, initial encounter] Onset: 01-26-2023 01-26-2023 Episodic Malaise and fatigue (8 sources) Fatigue; Translations: [Other fatigue] Onset: 01-26-2023 01-26-2023 Episodic Other connective tissue disease (8 sources) Muscle pain; Translations: [Myalgia, unspecified site] Onset: 02-18-2023 02-18-2023 Episodic Other inflammatory condition of skin (8 sources) Pruritus of skin; Translations: [Pruritus, unspecified] Onset: 01-21-2023 01-21-2023 Episodic Other lower respiratory disease (8 sources) Parietoalveolar pneumopathy; Translations: [Other alveolar and parieto-alveolar conditions] Onset: 01-21-2023 01-21-2023 Episodic Other non-traumatic joint disorders (8 sources) Chronic pain of left upper limb; Translations: [Pain in left shoulder] Onset: 04-13-2023 04-13-2023 Episodic Spondylosis; intervertebral disc disorders; other back problems (8 sources) Cervical radiculopathy; Translations: [Radiculopathy, cervical region] Onset: 01-26-2023 01-26-2023 Episodic Sprains and strains (8 sources) Strain of muscle at thorax level; [...] wo conon 12-09-2022 CT chest wo con [facility] [place] [address] [place] [address] CT Scan Report Signed Patient: Russell Bobby MR#: [id number] : 1940 Acct:[id number] Age/Sex: 82 / M ADM Date: 12/09/22 Loc: CT Room: Type: [facility] Attending Dr: Jamie Kent MD Copies to: [...] Parikh Jr., D.O.12/09/2022 7:09 PM Dictation Location: [place] [address] Transcribed By: [facility] 12/09/221908 Dictated By: Gregorio Parikh Jr, DO 12/09/22 1635 Signed By: 12/09/221908 Normal [facility] NM STRESS/REST MULTIon 09-09 NM STRESS/REST MULTI Patient: RUSSELL BOBBY Exam Date: 09/09/2022 : 1940 Gender:M Ordering : DR NARAYAN LUU M.D. Admission #: [id number] Family : Order #: [id number] CLICK HERE TO VIEW EXAM RADIOLOGY REPORT [...] Null M.D. on 09/09/2022 at 13:31 Normal [facility] Vital Signs Date Time Vital Sign Value Performing Clinician Lisa lennon 03-07-2024 13:10-0400 Body height 167.6 cm Dirk Pocos DO Work Phone: [facility] [employer] 03-07-2024 13:10-0400 Body mass index (BMI) [Ratio] 28.25 kg/m2 Idrk Pocos DO Work Phone: [facility] [employer] 03-07-2024 13:10-0400 Body weight 79.38 kg Dirk Pocos DO Work Phone: [facility] [employer] 02-29-2024 13:05-0400 Body height 167.6 cm Dirk Pocos DO Work Phone: [facility] [employer] 02-29-2024 13:05-0400 Body mass index (BMI) [Ratio] 28.25 kg/m2 Dirk Pocos DO Work Phone: [facility] [employer] 02-29-2024 13:05-0400 Body weight 79.38 kg Dirk Pocos DO Work Phone: [facility] [employer] 04-08-2023 09:45-0500 Body height 167.64 cm Jamie Kent Other [facility] Other 04-08-2023 09:45-0500 Body mass index (BMI) [Ratio] 28.24 kg/m2 Jamie Kent Other [facility] Other 04-08-2023 09:45-0500 Body temperature 96.4 [degF] Jamie Kent Other [facility] Other 04-08-2023 09:45-0500 Body weight 79.38 kg Jamie Kent Other [facility] Other 04-08-2023 09:45-0500 Diastolic blood pressure 74 mm[Hg] Christopher Yoli Other [facility] Other 04-08-2023 09:45-0500 Respiratory rate 20 /min Christopher Yoli Other [facility] Other 04-08-2023 09:45-0500 SaO2% (BldA) [Mass fraction] 98 % Christopher Yoli Other [facility] Other 04-08-2023 09:45-0500 Systolic blood pressure 122 mm[Hg] Christopher Yoli Other [facility] Other 03-26-2022 12:45-0500 Body height 167.64 cm Christopher Yoli Other [facility] Other 03-26-2022 12:45-0500 Body mass index (BMI) [Ratio] 28.08 kg/m2 Christopher Yoli Other [facility] Other 03-26-2022 12:45-0500 Body temperature 97.1 [degF] Christopher Yoli Other [facility] Other 03-26-2022 12:45-0500 Body weight 78.93 kg Christopher Yoli Other [facility] Other 03-26-2022 12:45-0500 Diastolic blood pressure 73 mm[Hg] Christopher Yoli Other [facility] Other 03-26-2022 12:45-0500 Respiratory rate 20 /min Christopher Yoli Other [facility] Other 03-26-2022 12:45-0500 Systolic blood pressure 124 mm[Hg] Jamie Lermadano Other [facility] Other 10-24-2021 12:45-0400 Body height 167.64 cm Bober Yoli Other [facility] Other 10-24-2021 12:45-0400 Body mass index (BMI) [Ratio] 29.05 kg/m2 Bober Yoli Other [facility] Other 10-24-2021 12:45-0400 Body temperature 97.4 [degF] Jamie Lermadano Other [facility] Other 10-24-2021 12:45-0400 Body weight 81.65 kg Bober Yoli Other [facility] Other 10-24-2021 12:45-0400 Diastolic blood pressure 80 mm[Hg] Bober Yoli Other [facility] Other 10-24-2021 12:45-0400 Respiratory rate 20 /min Jamie Padillano Other [facility] Other 10-24-2021 12:45-0400 SaO2% (BldA) [Mass fraction] 94 % Jamie Lermadano Other [facility] Other 10-24-2021 12:45-0400 Systolic blood pressure 129 mm[Hg] Jamie Lermadano Other [facility] Other Encounters Encounter Date Encounter Type Care Provider Facility Start: 03-07-2024 End: 03-07-2024 Bamboo flowsheet Dirk Tee Pocos DO Work Phone: [facility] Start: 03-07-2024 End: 03-07-2024 Bamboo flowsheet Dirk Tee Pocos DO Work Phone: [facility] Start: 03-07-2024 End: 03-08-2024 Telephone encounter Narayan Luu MD Work Phone: [facility] Start: 03-07-2024 End: 03-07-2024 ambulatory DIRK Tee POCOS Not Available Start: 03-07-2024 End: 03-07-2024 Patient encounter procedure Dirk Tee Pocos DO Work Phone: [facility] Comment on above: S/P trigger finger r elease (Primary Dx) Start: 02-29-2024 End: 02-29-2024 Bamboo flowsheet Dirk Tee Pocos DO Work Phone: [facility] Start: 02-29-2024 End: 02-29-2024 Bamboo flowsheet Dirk Tee Pocos DO Work Phone: [facility] Start: 02-29-2024 End: 02-29-2024 Patient encounter procedure Dirk Tee Pocos DO Work Phone: [facility] Comment on above: S/P trigger finger r elease (Primary Dx) Start: 02-29-2024 End: 02-29-2024 ambulatory BERNARD POCOS Not Available Start: 02-17-2024 End: 02-17-2024 Orders Only Dirk Tee Pocos DO Work Phone: [facility] Comment on above: Trigger middle finge r of left hand (Primary Dx); Trigger ring finger of left hand Start: 01-20-2024 End: 01-20-2024 ambulatory DIRK Tee POCOS Not Available Start: 01-15-2024 End: 01-15-2024 ambulatory Luis STRICKLAND Facility:[facility] Start: 01-15-2024 End: 01-15-2024 Patient encounter procedure Luis STRICKLAND [facility] Start: 12-02-2023 End: 12-02-2023 ambulatory OHRACHID WOODWARDVELY Not Available Start: 09-10-2023 Non-patient / Non-visit MD Narayan Luu Work Phone: [facility] Work Phone: Start: 09-10-2023 End: 09-10-2023 ambulatory Jamie Kent Facility:[facility] Start: 09-10-2023 End: 09-10-2023 ambulatory MD Narayan Luu Work Phone: [facility] Work Phone: Start: 09-10-2023 End: 09-10-2023 Patient encounter procedure MD Narayan Luu Work Phone: [facility] Work Phone: Start: 09-02-2023 End: 09-02-2023 ambulatory JESUS B APLING Not Available Start: 08-19-2023 End: 08-19-2023 ambulatory JESUS B APLING Not Available Start: 08-03-2023 End: 08-04-2023 ambulatory Monique Bray MD Facility:[facility] Start: 07-20-2023 End: 07-20-2023 ambulatory JESUS B APLING Not Available Start: 05-27-2023 End: 05-27-2023 ambulatory JESUS B APLING Not Available Start: 05-07-2023 End: 05-07-2023 ambulatory SHEBA Bradley OLIVEIRA Not Available Start: 04-22-2023 End: 04-22-2023 ambulatory JESUS B APLING Not Available Start: 04-13-2023 Patient encounter procedure Dirk Brito DO Work Phone: [facility] Start: 04-13-2023 End: 04-13-2023 ambulatory NARAYAN LUU Not Available Start: 04-08-2023 End: 04-08-2023 ambulatory Jamie Kent Other [facility] Other Start: 04-08-2023 Office outpatient visit 25 minutes Jamie Kent [facility] Start: 03-18-2023 End: 03-18-2023 ambulatory Jamie Kent Facility:[facility] Start: 03-18-2023 End: 03-18-2023 ambulatory MD Narayan Luu Work Phone: [facility] Work Phone: Start: 03-18-2023 End: 03-18-2023 Patient encounter procedure MD Narayan Luu Work Phone: [facility] Work Phone: Start: 12-09-2022 End: 12-09-2022 ambulatory Jamie Kent Facility:[facility] Start: 12-09-2022 End: 12-09-2022 ambulatory MD Narayan Luu Work Phone: [facility] Work Phone: Start: 12-09-2022 End: 12-09-2022 Patient encounter procedure MD Narayan Luu Work Phone: [facility] [place] Work Phone: Start: 10-15-2022 End: 10-15-2022 ambulatory Jamie Kent Facility:[facility] Start: 10-15-2022 End: 10-15-2022 ambulatory MD Narayan Luu Work Phone: [facility] Work Phone: Start: 10-15-2022 End: 10-15-2022 Patient encounter procedure MD Narayan Luu Work Phone: [facility] Work Phone: Start: 09-09-2022 End: 09-10-[address] NARAYAN LUU Facility: Start: 03-26-2022 End: 03-26-2022 ambulatory Jamie Kent Other [employer] [facility] Other Start: 03-26-2022 Office outpatient visit 15 minutes Jamie Kent [facility] Start: 03-18-2022 End: 03-18-2022 ambulatory MD Narayan Luu Work Phone: [facility] Work Phone: Start: 03-18-2022 End: 03-18-2022 Patient encounter procedure MD Narayan Luu Work Phone: [facility] Start: 11-06-2021 End: 11-06-2021 Patient encounter procedure MD Narayan Luu Work Phone: [facility] Start: 10-24-2021 End: 10-24-2021 ambulatory Jamie Kent Other [facility] Other Start: 10-24-2021 Office outpatient visit 25 [...] H/O: surgery S/P trigger fing er release Bernard Pocos DO Work Phone: H/O: surgery S/P trigger fing er release Bernard Pocos DO Work Phone: Tonsillectomy [employer] Vasectomy [employer] Plan of Treatment Date Care Activity Detail Author Start: 03-07-2024 End: 03-07-2024 Patient encounter procedure 03/07/2024 1:00 PM EDT Office Visit [facility] [address] [place] [id number] PocDirk palomino, DO [address] [facility] [place] [address] [facility] Start: 02-29-2024 End: 02-29-2024 Patient encounter procedure [facility] Comment on above: Arrived Start: 02-18-2024 End: 02-18-2024 Patient encounter procedure 02/18/2024 8:00 AM EDT Procedure Visit [facility] Pocgeorgette Dirk Tee, DO [address] [facility] [place] [address] [facility] Immunizations Immunization Date Immunization Notes Care Provider Fa cili 02-21-2022 COVID-19 Pfizer (bivalent) Christopher Yoli Other [facility] 02-19-2022 Influenza, High-dose Seasonal, Quadrivalent, Preservative Free Dirk Pocos DO Work Phone: [facility] 10-04-2021 COVID-19 Pfizer Christopher Yoli Other [facility] 04-16-2021 Influenza, Seasonal, Quadrivalent, Adjuvanted Dirk Pocos DO Work Phone: [facility] 02-11-2021 COVID-19 Vaccine Pfi zer - Documentation Purposes Only Christpearl Lermadano Other [facility] 06-23-2020 Do not use COVID-19 Pfizer 2 dose Christopher Yoli Other [facility] 06-02-2020 Do not use COVID-19 Pfizer 2 dose Christopher Yoli Other [facility] 03-01-2020 pneumococcal conjuga te vaccine, 13 valent Dirk Pocos DO Work Phone: [facility] 02-21-2020 influenza, high dose seasonal, preservative-free Dirk Pocos DO Work Phone: [facility] 04-20-2019 pneumococcal conjuga te vaccine, 13 valent Dirk Pocos DO Work Phone: [facility] 03-03-2019 influenza, high dose seasonal, preservative-free Dirk Pocos DO Work Phone: [facility] 02-08-2019 influenza virus vaccine, live, attenuated, for intranasal use Luis STRICKLAND [facility] 02-17-2018 influenza, high dose seasonal, preservative-free Dirk Pocos DO Work Phone: [facility] 01-21-2017 influenza, high dose seasonal, preservative-free Dirk Pocos DO Work Phone: [facility] 12-25-2016 tetanus toxoid, redu keely diphtheria toxoid, and acellular pertussis vaccine, adsorbed Dirk Pocos DO Work Phone: [facility] 03-12-2016 influenza, high dose seasonal, preservative-free Dirk Pocos DO Work Phone: [facility] 04-16-2015 influenza, high dose seasonal, preservative-free Dirk Pocos DO Work Phone: [facility] 02-08-2014 influenza, high dose seasonal, preservative-free Dirk Pocos DO Work Phone: [facility] 04-10-2013 pneumococcal polysaccharide vaccine, 23 valent Dirk Pocos DO Work Phone: [facility] 02-26-2012 seasonal influenza, intradermal, preservative free Dirk Pocos DO Work Phone: [facility] 01-27-2011 pneumococcal polysaccharide vaccine, 23 valent Dirk Pocos DO Work Phone: [facility] Payers Date Payer Category Payer Private Health Insurance 2022 Self-pay [id number] 2022 Medicaid [employer] MEDICARE A DVANTAGE [id number] 2022 Medicare AETNA MEDICARE A DVANTAGE A[employer]NA MEDICARE REPLACEMENT [id number] 2022- [address] [place] [address] [id number] 2019 Private Health Insurance [id number] 1961 Medicare [id number] 1940 Unknown [id number] 2.16.840.1.031482.3.579.2. 593 1940 Unknown [id number] 2.16.840.1.603777.3.579.2. 196 1940 Unknown [id number] 2.16.840.1.783868.3.579.2. 727 1938 Unknown [id number] 2.16.840.1.995295.3.579.2. 1259 1938 Unknown [id number] 2.16.840.1.575019.3.579.2. 1259 1938 Unknown [id number] 2.16.840.1.955524.3.579.2. 125 1938 Unknown [id number] 2.16.840.1.353157.3.579.2. 1259 1938 Unknown [id number] 2.16.840.1.708141.3.579.2. 125 1938 Unknown [id number] 2.16.840.1.654603.3.579.2. 1259 1938 Unknown [id number] 2.16.840.1.455544.3.579.2. 1259 1938 Unknown [id number] 2.16.840.1.293933.3.579.2. 1259 1938 Unknown [id number] 2.16.840.1.898961.3.579.2. 1259 1938 Unknown [id number] 2.16.840.1.513507.3.579.2. 125 1938 Unknown [id number] 2.16.840.1.215989.3.579.2. 9 1938 Unknown [id number] 2.16.840.1.264877.3.579.2. 125 1938 Unknown [id number] 2.16.840.1.347236.3.579.2. 1259 1938 Unknown [id number] 2.16.840.1.703914.3.579.2. 1259 Unknown Unknown [id number] 2.16.840.1.292452.3.579.2. 531 Unknown [id number] Unknown [id number] Unknown [id number] Social History Date Type Detail Facility Start: 04-13-2023 End: 05-06-[address] [facility] Start: 1940 Sex Assigned At Male F [facility] Start: 09-10-2023 [facility] Start: 05-09-2019 End: 01-21-2023 Tobacco smoking status Never smoked tobacco (finding) [facility] Tobacco smoking status Never [facility] Start: 01-21-2023 Tobacco use and exposure Smoke less tobacco non-user [facility] Start: 01-20-2024 End: 03-07-2024 Alcoholic beverage intake [facility] Start: 04-13-2023 End: 05-06-2023 History of Social function [facility] Within the last year , have you been afraid of your partner or ex-partner? No [facility] Do you belong to any clubs or organizations such as hindu groups, unions, fraternal or athletic groups, or [...] - these days [OSQ] Not at all [facility] (I/We) worried whe er (my/our) food would run out before (I/we) got money to buy more. Never true [facility] Start: 02-22-2023 Alcohol Comment caffeine: coffee,chocolate [facility] Start: 1940 Sex assigned at Not on file [facility] Clinical Notes 10-24-2021 to 03-08-2024 Telephone Encounter - Jaqueline Saldaña - 03/08/2024 10:04 AM EDTTelephone Encounter - Jaqueline Saldaña - 03/08/2024 10:04 AM EDTTelephone Encounter - Karina Russo MA - 03/07/2024 4:25 PM EDT Note Date & Type Note Facility 03-08-2024 Telephone encount er Note Pt came into the office. He is still not feeling well. He would like another med to make him better. He is upset he never got a call back yesterday. [facility] 03-08-2024 Miscellaneous Notes Formattin g of this note might be different from the original. Pt came into the office. He is still not feeling well. He would like another med to make him better. He is upset he never got a call back yesterday. Pt has been on abx (zpak) for three days and he is having diarrhea from the medication . Pt stated he went to the [facility] ER on 03/06 for this they found he was positive for covid and pneumonia . He is going to stop the medication but wanted to know if anything else could be called in or if pt will need an appt. He did state he normally gets a shot and not pills Not able to get ER summary as they are not in the office after 430 documented in this encounter [facility] 03-07-2024 Telephone encount er Note Pt has been on abx (zpak) for three days and he is having diarrhea from the medication . Pt stated he went to the [facility] ER on 03/06 for this they found he was positive for covid and pneumonia . He is going to stop the medication but wanted to know if anything else could be called in or if pt will need an appt. He did state he normally gets a shot and not pills Not able to get ER summary as they are not in the office after 430 [facility] 03-07-2024 History of Presen t illness Narrative Images from the original note were not included. Good Bobby is a 83 y.o. male presents with chief complaint of left middle and ring finger trigger release with superficial surgical infection. HPI: Good returns here today for all the above. His infection did clear up nicely, however, he has now developed a pneumonia. He is currently on Zithromax from the [place] ER as of yesterday. SUBJECTIVE: MEDICATIONS: Current Outpatient Medications Medication Instructions albuterol HFA (ProAir HFA) 90 mcg/act inhaler 2 puffs, Inhalation, Every 4 hours PRN azithromycin (Zithromax) 250 MG tablet cefdinir (OMNICEF) 300 mg, Oral, 2 times daily ibuprofen 200 mg, Every 6 hours nabumetone (RELAFEN) 500 mg, Oral, Twice a day (mid-day and evening), Take with food predniSONE (Deltasone) 10 MG tablet Take 4 tablets (40 mg) by mouth Daily for 4 days, THEN 3 tablets (30 mg) Daily for 4 days, THEN 2 tablets (20 mg) Daily for 4 days, THEN 1 tablet (10 mg) Daily for 4 days. ALLERGIES: No Known Allergies SURGICAL HISTORY: Past [...] 1.92 m Physical Exam His orthopedic exam reveals the wounds to be benign, still a little bit stiff. He likely has a bit of a contracture over the effected digits. His neurocirculatory status is overall grossly intact. No erythema. No drainage, no tenderness. X-rays are none new. ASSESSMENT AND PLAN: Assessment/Plan Left middle and ring finger trigger release. The findings are discussed. He will use the Neosporin cream, massage. His return here will be left only as needed. He is reassured. We did recommend he really work on stretching and trying to avoid further contracture. Cosigned by Dirk Brito DO at 03/10/2024 11:47 AM EDT documented in this encounter [facility] 02-29-2024 History of Presen t illness Narrative [...] 12:40 PM EDT documented in this encounter [facility] 04-08-2023 Evaluation note Encounter Date Diagnosis Assessment Notes Mar, Interstitial lung disease (ICD-10 - J84.9) [facility] Other 11-16-2022 Evaluation note* Encounter Date Diagnosis Assessment Notes Treatment Notes Treatment Clinical Notes Mar, Interstitial lung disease (ICD-10 - J84.9) [facility] Other 06-16-2022 Evaluation note* Encounter Date Diagnosis Assessment Notes Treatment Notes Treatment Clinical Notes Oct, Interstitial lung disease (ICD-10 - J84.9) 77 Pieces Other Evaluation + Plan note No data available for this section [facility] evaluation noteNo assessment information available [facility] Work Phone: Evaluation note* Diagnosis Trigger middle finger of left hand- Primary Trigger ring finger of left hand documented in [facility] encounter [facility]* Diagnosis Dislocation of temporomandibular joint, [...] release- Primary [facility] [...] shoulder pain Pain in joint, shoulder region Pneumonia due to COVID-19 virus- Primary [facility] [...] History ENT surgery 2002 Hospitalization History surgery 77 Pieces Other History general Narrative - Reported* Type [...] surgery Hospitalization History [facility] ER pleurcy 07/2022 77 [facility] Other Hospital Discharge instructions No data available for this section [facility] [employer] progress note No data available for this section [facility] [employer] Summary Purpose Family History Relationship Condition Age [...] content) DATE CREATED AUTHOR 11/04/2017 [facility] DATE CREATED AUTHOR AUTHOR'S ORGANIZ ATION 09/16/2022 [facility] DATE CREATED AUTHOR AUTHOR'S ORGANIZ ATION 09/15/2023 [facility] DATE CREATED AUTHOR AUTHOR'S ORGANIZ ATION 09/19/2023 [facility] DATE CREATED AUTHOR AUTHOR'S ORGANIZ ATION 01/17/2024 [facility] DATE CREATED AUTHOR AUTHOR'S ORGANIZ ATION 03/08/2024 [facility] EPIC REASON FOR VISIT (unrecogniz [...] Other Provider Active Start: September 10, 2023 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 Catcher Relationship Specialty Start Date End Date Narayan Luu MD [address] [address] PCP - [employer] 05/11/20 Narayan Luu MD [address] [facility] [address] [place] [address] PCP - General Family Medicine 09/16/22 Cigarette Catcher Relationship Specialty Start Date End Date Narayan Luu MD [address] [facility] [address] [place] [address] PCP - [employer] 05/11/20 Narayan Luu MD [address] [facility] [address] [place] [address] PCP - General Family Medicine 09/16/22 Cigarette Catcher Relationship Specialty Start Date End Date Narayan Luu MD [address] [facility] [address] [place] [address] PCP - [employer] 05/11/20 Narayan Luu MD [address] [place] [address] [place] [address] PCP General Family Medicine 09/16/22 Cigarette Catcher Relationship Specialty Start Date End Date Narayan Luu MD [address] [place] [address] [place] [address] PCP - Aet 05/11/20 Narayan Luu MD [address] [place] [address] [place] [address] PCP [facility] Family Medicine 09/16/22 Cigarette Catcher Relationship Specialty Start Date End Date Narayan Luu MD [address] [place] [address] [place] [address] PCP - Aet 05/11/20 Narayan Luu MD [address] [place] [address] [place] [address] PCP - General Family Medicine 09/16/22 Goals (unrecognized section and [...] BE BASED ON THE PRIMARY CLINICAL RECORDS. [employer] [facility]. provides no warranty or guarantee of the accuracy or completeness of information in this document.
[2024-04-12 07:44] VITALS: BP 120/71; PULSE 76; TEMP 36.2; O2SAT 98
[2024-04-12 08:51] VITALS: BP 140/66; PULSE 72; O2SAT 98
[2024-04-12 08:52] VITALS: BP 152/72; PULSE 78; O2SAT 98
[2024-04-12] MEDS: BUPIVACAINE HCL 0.25% PF 25 MG/10 ML VIAL 4 ML INJ (08:56)
--- NOTE | 2024-04-12 09:05 | W.PM.PROCNOT ---
Date of procedure: 04/12/24 Pre-op diagnosis: Lumbar spondylosis Post-op diagnosis: same as pre-op Procedure: Bilateral Lumbar 4/5, 5/sacral 1 medial branch block Preop diagnosis includes pain secondary to spondylosis, Postop diagnosis same Under fluoroscopic guidance Solution injected: 2milliliters Marcaine 0.25% Anesthesia :none Immediate complications none Time out process compliant After informed consent obtained from the patient placed in the [employer] proposition . area was prepped and draped in a sterile fashion using betadine .25 gauge spinal needle inserted over each of the above mentioned target areas . [place] were directed towards the target under fluoroscopic guidance . after encountering each of the targets , no indication of intravascular intraneuronal or intrathecal needle tip placement. Then 0 .5 to 1 Milliliter was injected at each level. [place] removed postoperatively. patient transferred to recovery in stable condition to be discharged home after meeting criteria Anesthesia: Local Surgeon: Delores Randall Condition: stable
== END 2024-04-12 09:04 | disposition home or self-care (01) ==
LOC: SURGOUT 07:29
PROVIDERS: PCP Family Medicine; Visit Provider Anesthesiology Pain Medicine
DX: M47.816 Spondylosis without myelopathy or radiculopathy, lumbar region (principal)
CPT/HCPCS: 64493; 64494; J0665

== ENCOUNTER 2024-04-14 12:53 | Outpatient (OUT) | payer MEDICARE, SELFPAY ==
--- OUTSIDE RECORDS SUMMARY | 2024-04-14 13:14 | XMS_ITS | CCD ---
Author Organization [facility] Care Team Providers Care Web Designer Developer Name Role Phone PHYSICIAN, DEFAULT Unavailable Unavailable PHYSICIAN, DEFAULT Unavailable Unavailable PHYSICIAN, DEFAULT Unavailable Unavailable PHYSICIAN, DEFAULT Unavailable Unavailable Jamie Kent MD Narayan Luu Primary Care Provider MD Jamie Kent Attending Provider [phone] MD Narayan Luu Primary Care Provider MD Jamie Kent Attending Provider BELL, DR MASON Attending Unavailable BELL, DR MASON Consulting Unavailable BELL, DR MASON Primary Care Unavailable BELL, DR MASON Admitting Unavailable ZIEBER, DR ROGERIO Patel Consulting Unavailable Bell, MD Narayan Chung Primary Care Provider [phone] MD Jamie Kent Attending Provider MD Narayan Luu Primary Care Provider MD Jamie Kent Attending Provider Katarina SHAH, Monique Buenrostro Attending Unavailable MD Narayan Luu Primary Care Provider MD Jamie Kent Attending Provider [phone] Jamie Kent Admitting Unavaila ble Jamie Kent [...] Unavailable Narayan Luu MD Primary Care Provider [phone] SHEBA OLIVEIRA Attending Unavailable APLING, JESUS Ledezma [...] Facility (3 sources) levoFLOXacin Drug Allergy Unknown [facility] Other (2 sources) Penicillin V Drug Allergy Unknown [facility] Other (4 sources) Penicillin; Translations: [penicillin] Drug Allergy Unknown (qualifier value) [facility] Rep[facility] (1 source) levoFLOXacin Drug Allergy [address] [place] [address] Repository (1 source) Penicillins Drug allergy (disorder) [address] [place] [address] Repository (2 sources) Mold Extract; Translations: [Mold] Drug Allergy Unknown (qualifier value) [facility] Medications Current Medications Medication Drug Class(es) Dates Sig (Normalized) Sig (Original) [id number] actuat albuterol 0.09 mg/actuat metered dose [...] Daily, # 90 cap(s), Refills(s) 1, Pharmacy: [place] [id number] Start Date: 02/25/19 Status: Ordered Completed/Discontinued Medications [...] wo conon 12-09-2022 CT chest wo con [facility] [address] [place] [address] CT Scan Report Signed Patient: Russell Bobby MR#: [id number] : 1940 Acct:[id number] Age/Sex: 82 / M ADM Date: 12/09/22 Loc: CT Room: Type: [facility] Attending Dr: Jamie Kent MD Copies to: [...] Parikh Jr., D.O.12/09/2022 7:09 PM Dictation Location: [place] [address] Transcribed By: [facility] 12/09/221908 Dictated By: Gregorio Parikh Jr, DO 12/09/22 1635 Signed By: 12/09/221908 Normal [facility] NM STRESS/REST MULTIon 09-09 NM STRESS/REST MULTI Patient: RUSSELL BOBBY Exam Date: 09/09/2022 : 1940 Gender:M Ordering : DR NARAYAN LUU M.D. Admission #: [id number] Family : Order #: [id number] CLICK HERE TO VIEW EXAM RADIOLOGY REPORT [...] Null M.D. on 09/09/2022 at 13:31 Normal [facility] Vital Signs Date Time Vital Sign Value Performing Clinician Lisa lennon 03-07-2024 13:10-0400 Body height 167.6 cm Dirk Pocos DO Work Phone: [facility] 03-07-2024 13:10-0400 Body mass index (BMI) [Ratio] 28.25 kg/m2 Dirk Pocos DO Work Phone: [facility] 03-07-2024 13:10-0400 Body weight 79.38 kg Dirk Pocos DO Work Phone: [facility] 02-29-2024 13:05-0400 Body height 167.6 cm Dirk Pocos DO Work Phone: [facility] 02-29-2024 13:05-0400 Body mass index (BMI) [Ratio] 28.25 kg/m2 Dirk Pocos DO Work Phone: [facility] 02-29-2024 13:05-0400 Body weight 79.38 kg Dirk Pocos DO Work Phone: [facility] 04-08-2023 09:45-0500 Body height 167.64 cm Jamie Kent Other [facility] Other 04-08-2023 09:45-0500 Body mass index (BMI) [Ratio] 28.24 kg/m2 Jamie Kent Other [facility] Other 04-08-2023 09:45-0500 Body temperature 96.4 [degF] Jamie Kent Other [facility] Other 04-08-2023 09:45-0500 Body weight 79.38 kg Jamie Kent Other [facility] Other 04-08-2023 09:45-0500 Diastolic blood pressure 74 mm[Hg] Christopher Yoli Other [facility] Other 04-08-2023 09:45-0500 Respiratory rate 20 /min Christopher Yoli Other [facility] Other 04-08-2023 09:45-0500 SaO2% (BldA) [Mass fraction] 98 % Christopher Yoli Other [facility] Other 04-08-2023 09:45-0500 Systolic blood pressure 122 mm[Hg] Christopher Yoli Other [facility] Other 03-26-2022 12:45-0500 Body height 167.64 cm Christopher Yoli Other [facility] Other 03-26-2022 12:45-0500 Body mass index (BMI) [Ratio] 28.08 kg/m2 Christopher Yoli Other [facility] Other 03-26-2022 12:45-0500 Body temperature 97.1 [degF] Christopher Yoli Other [facility] Other 03-26-2022 12:45-0500 Body weight 78.93 kg Christopher Yoli Other [facility] Other 03-26-2022 12:45-0500 Diastolic blood pressure 73 mm[Hg] Christopher Yoli Other [facility] Other 03-26-2022 12:45-0500 Respiratory rate 20 /min Christopher Yoli Other [facility] Other 03-26-2022 12:45-0500 Systolic blood pressure 124 mm[Hg] Jamie Lermadano Other [facility] Other 10-24-2021 12:45-0400 Body height 167.64 cm Bober Yoli Other [facility] Other 10-24-2021 12:45-0400 Body mass index (BMI) [Ratio] 29.05 kg/m2 Bober Yoli Other [facility] Other 10-24-2021 12:45-0400 Body temperature 97.4 [degF] Jamie Lermadano Other [facility] Other 10-24-2021 12:45-0400 Body weight 81.65 kg Bober Yoli Other [facility] Other 10-24-2021 12:45-0400 Diastolic blood pressure 80 mm[Hg] Bober Yoli Other [facility] Other 10-24-2021 12:45-0400 Respiratory rate 20 /min Jamie Padillano Other [facility] Other 10-24-2021 12:45-0400 SaO2% (BldA) [Mass fraction] 94 % Jamie Lermadano Other [facility] Other 10-24-2021 12:45-0400 Systolic blood pressure 129 mm[Hg] Jamie Lermadano Other [facility] Other Encounters Encounter Date Encounter Type Care [...] 01-15-2024 End: 01-15-2024 ambulatory Luis STRICKLAND Facility:[facility] Start: 01-15-2024 End: 01-15-2024 Patient encounter procedure Luis STRICKLAND [facility] Start: 12-02-2023 End: 12-02-2023 ambulatory OHRACHID WOODWARDVELY Not Available Start: 09-10-2023 Non-patient / Non-visit MD Narayan Luu Work Phone: [facility] Work Phone: Start: 09-10-2023 End: 09-10-2023 ambulatory Jamie Kent Facility:[facility] Start: 09-10-2023 End: 09-10-2023 ambulatory MD Narayan Luu Work Phone: [facility] Work Phone: Start: 09-10-2023 End: 09-10-2023 Patient encounter procedure MD Narayan Luu Work Phone: [facility]Res[facility] Work Phone: Start: 09-02-2023 End: 09-02-2023 ambulatory JESUS B APLING Not Available Start: 08-19-2023 End: 08-19-2023 ambulatory JESUS B APLING Not Available Start: 08-03-2023 End: 08-04-2023 ambulatory Monique Bray MD Facility:[facility] Start: 07-20-2023 End: 07-20-2023 ambulatory JESUS B APLING Not Available Start: 05-27-2023 End: 05-27-2023 ambulatory JESUS B APLING Not Available Start: 05-07-2023 End: 05-07-2023 ambulatory SHEBA Bradley OLIVEIRA Not Available Start: 04-22-2023 End: 04-22-2023 ambulatory JESUS B APLING Not Available Start: 04-13-2023 Patient encounter procedure Dirk Brito DO Work Phone: [facility] Start: 04-13-2023 End: 04-13-2023 ambulatory NARAYAN LUU Not Available Start: 04-08-2023 End: 04-08-2023 ambulatory Jamie Kent Other [facility] Other Start: 04-08-2023 Office outpatient visit 25 minutes Jamie Kent [facility] Start: 03-18-2023 End: 03-18-2023 ambulatory Jamie Kent Facility:[facility] Start: 03-18-2023 End: 03-18-2023 ambulatory MD Narayan Luu Work Phone: [facility] Work Phone: Start: 03-18-2023 End: 03-18-2023 Patient encounter procedure MD aNrayan Luu Work Phone: [facility]Res[facility] Work Phone: Start: 12-09-2022 End: 12-09-2022 ambulatory Jamie Kent Facility:[facility] Start: 12-09-2022 End: 12-09-2022 ambulatory MD Narayan Luu Work Phone: [facility] Work Phone: Start: 12-09-2022 End: 12-09-2022 Patient encounter procedure MD Narayan Luu Work Phone: [facility] Scan [facility] Work Phone: Start: 10-15-2022 End: 10-15-2022 ambulatory Jamie Kent Facility:[facility] Start: 10-15-2022 End: 10-15-2022 ambulatory MD Narayan Luu Work Phone: [facility] Work Phone: Start: 10-15-2022 End: 10-15-2022 Patient encounter procedure MD Narayan Luu Work Phone: [facility]Res[facility] Work Phone: Start: 09-09-2022 End: 09-10-[address] NARAYAN LUU Facility: Start: 03-26-2022 End: 03-26-2022 ambulatory Jamie Kent Other [facility] Other Start: 03-26-2022 Office outpatient visit 15 minutes Jamie Kent [facility] Start: 03-18-2022 End: 03-18-2022 ambulatory MD Narayan Luu Work Phone: [facility] Work Phone: Start: 03-18-2022 End: 03-18-2022 Patient encounter procedure MD Narayan Luu Work Phone: [facility] Start: 11-06-2021 End: 11-06-2021 Patient encounter procedure MD Narayan Luu Work Phone: [facility] Start: 10-24-2021 End: 10-24-2021 ambulatory Jamie Kent Other [facility] Other Start: 10-24-2021 Office outpatient visit 25 minutes Jamie Kent [facility] Start: 12-08-2016 End: 12-09-2016 Ambulatory DEFAULT PHYSICIAN Facility:[facility] Start: 11-20-2016 End: 11-21-2016 Ambulatory DEFAULT PHYSICIAN Facility:[facility] Procedures Date Procedure Procedure Detail Performing Clinician Start: 12-09-2022 CT of chest without contrast MD Narayan Luu Work Phone: back surgery Luis STRICKLAND Colonoscopy Luis STRICKLAND H/O: surgery S/P trigger fing er release Bernard Pocos DO Work Phone: H/O: surgery S/P trigger fing er release Bernard Pocos DO Work Phone: Tonsillectomy Luis indoo.rs Vasectomy Luis indoo.rs Plan of Treatment Date Care Activity Detail Author Start: 03-07-2024 End: 03-07-2024 Patient encounter procedure 03/07/2024 1:00 PM EDT Office Visit [facility] [address] [place] [id number] PocDirk palomino, DO [address] [facility] [place] [address] [facility] Start: 02-29-2024 End: 02-29-2024 Patient encounter procedure [facility] Comment on above: Arrived Start: 02-18-2024 End: 02-18-2024 Patient encounter procedure 02/18/2024 8:00 AM EDT Procedure Visit [facility] Pocgeorgette Dirk Tee, DO [address] [facility] [place] [address] [facility] Immunizations Immunization Date Immunization Notes Care Provider Fa cili 02-21-2022 COVID-19 Pfizer (bivalent) Christopher Yoli Other [facility] 02-19-2022 Influenza, High-dose Seasonal, Quadrivalent, Preservative Free Dirk Pocos DO Work Phone: [facility] 10-04-2021 COVID-19 Pfizer Christopher Yoli Other [facility] 04-16-2021 Influenza, Seasonal, Quadrivalent, Adjuvanted Dirk Pocos DO Work Phone: [facility] 02-11-2021 COVID-19 Vaccine Pfi zer - Documentation Purposes Only Christpearl Lemradano Other [facility] 06-23-2020 Do not use COVID-19 Pfizer 2 dose Christopher Yoli Other [facility] 06-02-2020 Do not use COVID-19 Pfizer 2 dose Christopher Yoli Other [facility] 03-01-2020 pneumococcal conjuga te vaccine, 13 valent Dirk Pocos DO Work Phone: [facility] 02-21-2020 influenza, high dose seasonal, preservative-free Dirk Pocos DO Work Phone: [facility] 04-20-2019 pneumococcal conjuga te vaccine, 13 valent Dirk Pocos DO Work Phone: [facility] 03-03-2019 influenza, high dose seasonal, preservative-free Dirk Pocos DO Work Phone: [facility] 02-08-2019 influenza virus vaccine, live, attenuated, for intranasal use Luis STRICKLAND [facility] 02-17-2018 influenza, high dose seasonal, preservative-free Dirk Pocos DO Work Phone: [facility] 01-21-2017 influenza, high dose seasonal, preservative-free Dirk Pocos DO Work Phone: [facility] 12-25-2016 tetanus toxoid, redu keely diphtheria toxoid, and acellular pertussis vaccine, adsorbed Dirk Pocos DO Work Phone: [facility] 03-12-2016 influenza, high dose seasonal, preservative-free Dirk Pocos DO Work Phone: [facility] 04-16-2015 influenza, high dose seasonal, preservative-free Dirk Pocos DO Work Phone: [facility] 02-08-2014 influenza, high dose seasonal, preservative-free Dirk Pocos DO Work Phone: [facility] 04-10-2013 pneumococcal polysaccharide vaccine, 23 valent Dirk Pocos DO Work Phone: [facility] 02-26-2012 seasonal influenza, intradermal, preservative free Dirk Pocos DO Work Phone: [facility] 01-27-2011 pneumococcal polysaccharide vaccine, 23 valent Dirk Pocos DO Work Phone: [facility] Payers Date Payer Category Payer Private Health Insurance 2022 Self-pay [id number] 2022 Medicaid AETNA MEDICARE A DVANTAGE [id number] 2022 Medicare AETNA MEDICARE A DVANTAGE AETNA MEDICARE REPLACEMENT [id number] 2022- [address] [place] [phone] [id number] 2019 Private Health Insurance [id number] 1959 Medicare [id number] 1940 Unknown [id number] 2.16.840.1.842419.3.579.2. 593 1940 Unknown [id number] 2.16.840.1.088922.3.579.2. 196 1940 Unknown [id number] 2.16.840.1.509917.3.579.2. 727 1940 Unknown [id number] 2.16.840.1.932172.3.579.2. 1259 1938 Unknown [id number] 2.16.840.1.951950.3.579.2. 1259 1938 Unknown [id number] 2.16.840.1.888685.3.579.2. 125 1938 Unknown [id number] 2.16.840.1.563375.3.579.2. 1259 1938 Unknown [id number] 2.16.840.1.685804.3.579.2. 125 1938 Unknown [id number] 2.16.840.1.530826.3.579.2. 1259 1938 Unknown [id number] 2.16.840.1.956178.3.579.2. 1259 1938 Unknown [id number] 2.16.840.1.648055.3.579.2. 1259 1938 Unknown [id number] 2.16.840.1.183247.3.579.2. 1259 1938 Unknown [id number] 2.16.840.1.617362.3.579.2. 125 1938 Unknown [id number] 2.16.840.1.084689.3.579.2. 9 1940 Unknown [id number] 2.16.840.1.594124.3.579.2. 125 1938 Unknown [id number] 2.16.840.1.425521.3.579.2. 1259 1938 Unknown [id number] 2.16.840.1.456986.3.579.2. 1259 Unknown Unknown [id number] 2.16.840.1.695049.3.579.2. 531 Unknown [id number] 2.16.840.1.668431.3.579.2. 531 Unknown [id number] 2.16.840.1.074272.3.579.2. 531 Unknown [id number] 2.16.840.1.084372.3.579.2. 531 Social History Date Type Detail Facility Start: 04-13-2023 End: 05-06-2023 Sex Assigned At [facility] Start: 1940 Sex Assigned At Male F [facility] Start: 09-10-[address] [facility] Start: 05-09-2019 End: 01-21-2023 Tobacco smoking status Never smoked tobacco (finding) [facility] Tobacco smoking status Never [facility] Start: 01-21-2023 Tobacco use and exposure Smoke less tobacco non-user [facility] Start: 01-20-2024 End: 03-07-2024 Alcoholic beverage intake Ex-drinker (finding) [facility] Start: 04-13-2023 End: 05-06-2023 History of Social function [facility] Within the last year , have you been afraid of your partner or ex-partner? No [facility] Do you belong to any clubs or organizations such as evangelical groups, unions, fraternal or athletic groups, or [...] . Pt stated he went to the [facility] ER on 03/06 for this they [...] office after 430 documented in this encounter [facility] 03-07-2024 Telephone encount er Note Pt has been on abx (zpak) for three days and he is having diarrhea from the medication . Pt stated he went to the [facility] ER on 03/06 for this they [...] are not in the office after 430 [facility] 03-07-2024 History of Presen t illness Narrative [...] He is currently on Zithromax from the [facility] ER as of yesterday. SUBJECTIVE: MEDICATIONS: Current [...] 11:47 AM EDT documented in this encounter [facility] 02-29-2024 History of Presen t illness Narrative [...] 12:40 PM EDT documented in this encounter [facility] 04-08-2023 Evaluation note Encounter Date Diagnosis Assessment Notes Mar, Interstitial lung disease (ICD-10 - J84.9) [facility] Other 11-16-2022 Evaluation note* Encounter Date Diagnosis Assessment Notes Treatment Notes Treatment Clinical Notes Mar, Interstitial lung disease (ICD-10 - J84.9) [facility] Other 06-16-2022 Evaluation note* Encounter Date Diagnosis Assessment Notes Treatment Notes Treatment Clinical Notes Oct, Interstitial lung disease (ICD-10 - J84.9) [facility] Other Evaluation + Plan note No data available for this section [facility] evaluation noteNo assessment information available [facility] Work Phone: Evaluation note* Diagnosis Trigger middle finger of left hand- Primary Trigger ring finger of left hand documented in this encounter [facility] HealthcareEvaluation note* Diagnosis Dislocation of temporomandibular [...] History ENT surgery 2002 Hospitalization History surgery [facility] Other History general Narrative - Reported* Type [...] surgery Hospitalization History [facility] pleurcy 07/2022 [facility] Other Hospital Discharge instructions No data available for this section [facility] progress note No data available for this section [facility] Summary Purpose Family History Relationship Condition Age [...] section and content) DATE CREATED AUTHOR 11/04/2017 [facility] DATE CREATED AUTHOR AUTHOR'S ORGANIZ ATION 09/16/2022 [facility] DATE CREATED AUTHOR AUTHOR'S ORGANIZ ATION 09/15/2023 [facility] DATE CREATED AUTHOR AUTHOR'S ORGANIZ ATION 09/19/2023 [facility] DATE CREATED AUTHOR AUTHOR'S ORGANIZ ATION 01/17/2024 [facility] DATE CREATED AUTHOR AUTHOR'S ORGANIZ ATION 03/08/2024 [facility] Specialists EPIC REASON FOR VISIT (unrecogniz [...] Other Provider Active Start: September 10, 2023 Web Designer Developer Relationship Specialty Start Date End Date Narayan Luu MD [address] [address] PCP - [employer] 05/11/20 Naraayn Luu MD [address] [facility] [address] [place] [address] PCP - General Family Medicine 09/16/22 Web Designer Developer Relationship Specialty Start Date End Date Narayan Luu MD [address] [facility] [address] [place] [address] PCP - [employer] 05/11/20 Narayan Luu MD [address] [facility] [address] [place] [address] PCP - General Family Medicine 09/16/22 Web Designer Developer Relationship Specialty Start Date End Date Narayan Luu MD [address] [place] [address] [place] [address] PCP - [employer] 05/11/20 Narayan Luu MD [address] [place] [address] [place] [address] PCP General Family Medicine 09/16/22 Web Designer Developer Relationship Specialty Start Date End Date Narayan Luu MD [address] [place] [address] [place] [address] PCP - Aet 05/11/20 Narayan Luu MD [address] [place] [address] [place] [address] PCP [facility] Family Medicine 09/16/22 Web Designer Developer Relationship Specialty Start Date End Date Narayan Luu MD [address] [place] [place] [address] PCP - Aet 05/11/20 Narayan Luu MD [address] [place] [place] [address] PCP - General Family Medicine 09/16/22 Goals [...] BE BASED ON THE PRIMARY CLINICAL RECORDS. [facility]. provides no warranty or guarantee of the accuracy or completeness of information in this document.
--- NOTE | 2024-04-14 13:15 | P.CN_ITS ---
Consult Note: HPI Data of Consult Patient: known to practice within the last 3 years Requesting Physician: Shasta Joshi NP Primary Care Provider: MARLON LUU Consult Narrative Reason for consult: f/u Narrative: Good Bobby a pleasant 83 year old male presents for evaluation and management of chronic low back pain. historically has benefitted from lumbar RFAs with previous pain management providers. patient has engaged in HEP greater than 6 weeks without improvement, finds mild benefit to tylenol and nabumetone. recent right L4/5 L5/S1 MBB #2 providing 100% improvement ongoing. cc:: CC: Shasta Joshi NP Review of Systems 2 ROS Status of ROS 10 or more systems reviewed and unremark able except as noted in history and below Musculoskeletal Reports: back pain PFSH PFSH Medical History Osteoarthritis ?M19.90 - Unspecified osteoarthritis, unspecified site (ICD-10) Neck pain ?M54.2 - Cervicalgia (ICD-10) Pleurisy ?R09.1 - Pleurisy (ICD-10) Lung fibrosis ?J84.10 - Pulmonary fibrosis, unspecified (ICD-10) Surgical History S/P hernia repair ?Z98.890 - Other specified postprocedural states (ICD-10) ?Z87.19 - Personal history of other diseases of the digestive system (ICD-10) Status post lung surgery ?Z98.890 - Other specified postprocedural states (ICD-10) H/O lumbosacral spine surgery ?Z98.890 - Other specified postprocedural states (ICD-10) Meds Home Medications and Allergies Home Medications ?Medication ?Instructions ?Recorded ?Confirmed ?Type albuterol sulfate 90 mcg/actuation 1 inh inhalation .everyday PRN 06/02/23 04/12/24 History breath activated powder inhaler shortness of breath or wheezing ibuprofen 200 mg capsule 200 mg PO TID PRN pain 06/02/23 04/12/24 History triamcinolone acetonide 0.1 % 1 applic topical DAILY PRN itching 06/02/23 04/12/24 History topical cream nabumetone 500 mg tablet 500 mg PO DAILY 01/26/24 04/12/24 History azithromycin 250 mg tablet See Rx Instructions PO .COMPLEX #6 03/06/24 04/12/24 Rx (Zithromax Z-Tyree) tabs Allergies Allergy/AdvReac Type Severity Reaction Status Date / Time No Known Drug Allergies Allergy Verified 04/12/24 07:42 Exam Constitutional Documenting provider has reviewed patient's vital signs: yes Common normals: no apparent distress, oriented x3, healthy appearing, alert and well nourished General appearance: cooperative HENMT Common normals: normocephalic, hearing grossly normal bilaterally and moist oral mucous membranes Head and scalp: normocephalic Eye Common normals: PERRL Pupil: PERRL Neck & C-Spine Common normals: full ROM General: normal visual inspection Cervical spine: cervical ROM normal and paracervical muscle tenderness Other: negative spurlings sensation intact BLE improvement in pain with ROM Chest Common normals: inspection of chest normal Respiratory Common normals: normal respiratory effort, no retractions and no use of accessory muscles Back & Pelvis Lumbar spine/lower back: ROM limited, pain with ROM, lumbar spinal tenderness and straight leg raise negative bilaterally Other: right sided facet loading pain, negative radiculopathy strength 5/5 in BLE Extremity Common normals: normal to inspection and full ROM Neuro Common normals: oriented x3, CN's II-XII intact bilaterally, moves all extremities, no focal motor deficits, no sensory deficits noted and deep tendon reflexes 2+ bilaterally Sensorium/orientation: alert Motor exam: strength 5/5 throughout and no movement abnormalities noted Psych Common normals: mental status grossly normal, thought process normal, cooperative, affect normal, speech normal and activity/motor behavior normal Speech: normal speech Thought process: normal thought process Results Additional Findings Additional findings: If on a controlled substance or opioids, I have checked an [place] report on this patient and there are no aberrancies noted in the prescribing history.??If on a controlled substance or opioid a drug screen was completed and reviewed within the last year, and if there has not been a drug screen completed we ordered one today to monitor higher risk, state monitored pain medication use. As part of providing excellent, safe, comprehensive care, the following was completed at our patient's visit: 1. A medication reconciliation and review to ensure accurate knowledge of current/active medications, including asking our patients to inform us about any [id number] medications or herbal remedies/nutritional supplements/alternative remedies. 2. A review to specifically ensure our patients have had annual screening for screening for depression, screening for tobacco use, and screening for unhealthy alcohol use. For concerning screenings had a discussion with the patient, provided patient education, and recommended follow-up with primary care provider when appropriate. If patient noted with a risk of falling, they received education on strength, gait, and balance training to prevent future risk of falling. Assessment and Plan Assessment and Plan (1) Lumbar spondylosis: (2) Myofascial pain: Plan right L4/5 L5/S1 RFA under fluoroscopy with IV sedation continue HEP as tolerated continue current medications f/u 1 month after RFA complete
== END 2024-04-14 12:54 | disposition home or self-care (01) ==
LOC: PM 12:53
PROVIDERS: PCP Family Medicine; Visit Provider Nurse Practitioner
DX: M47.816 Spondylosis without myelopathy or radiculopathy, lumbar region (principal); M79.18 Myalgia, other site
CPT/HCPCS: G0463

== ENCOUNTER 2024-07-21 11:48 | Outpatient (OUT) | payer MEDICARE, SELFPAY ==
--- OUTSIDE RECORDS SUMMARY | 2024-07-21 11:53 | XMS_ITS | CCD ---
Author Organization [facility] Care Team Providers Care Grain Buyer Name Role Phone PHYSICIAN, DEFAULT Unavailable Unavailable PHYSICIAN, DEFAULT Unavailable Unavailable PHYSICIAN, DEFAULT Unavailable Unavailable PHYSICIAN, DEFAULT Unavailable Unavailable Jamie Kent MD Narayan Luu Primary Care Provider [phone] MD Jamie Kent Attending Provider MD Narayan Luu Primary Care Provider [phone] MD Jamie Kent Attending Provider [phone] BELL, DR MASON Attending Unavailable BELL, DR MASON Consulting Unavailable BELL, DR MASON Primary Care Unavailable BELL, DR MASON Admitting Unavailable ZIEBER, DR ROGERIO Patel Consulting Unavailable MD Narayan Luu Primary Care Provider [phone] MD Jamie Kent Attending Provider MD Narayan Luu Primary Care Provider MD Jamie Kent Attending Provider [phone] Katarina SHAH, Monique Buenrostro Attending Unavailable MD Narayan Luu Primary Care Provider [phone] MD Jamie Kent Attending Provider NARAYAN LUU Primary Care Physician [phone] Luis STRICKLAND Attending Unavailable Narayan Luu MD Unavailable Narayan Luu MD Primary Care Provider Narayan Luu Primary Care Unavailable Jamie Kent Attending Unavaila Jamie Berry Admitting Unavaila Jamie Berry Attending Unavaila Jamie Berry Admitting Unavaila ble Narayan Luu Primary Care Unavailable NARAYAN LUU Attending Unavailable JESUS VALENCIA Attending Unavailable APLJESUS RODRIGUEZ Referring Unavailable OH CONTRERAS Attending Unavailable DIRK MASON Referring Unavailable POCOS, DIRK Tee Attending Unavailable DIRK MASON Referring Unavailable POCDIRK CHARLES Attending Unavailable POCDIKR CHARLES Referring Unavailable POCOSDIRK Attending Unavailable SHEBA OLIVEIRA Attending Unavailable HEMYOKASTA RESENDIZ Attending Unavailable YOKASTA TINAJERO Referring Unavailable Allergies Allergy Classification Reported Allergen(s) Allergy Type Date of Onset Reaction(s) Facility (3 sources) levoFLOXacin Drug Allergy Unknown [facility] Other (2 sources) Penicillin V Drug Allergy Unknown [facility] Other (4 sources) Penicillin; Translations: [penicillin] Drug Allergy Unknown (qualifier value) [facility] Rep[facility] (2 sources) Mold Extract; Translations: [Mold] Drug Allergy Unknown (qualifier value) [facility] (1 source) levoFLOXacin Drug Allergy 4 [facility] Repository (2 sources) Penicillins Drug allergy (disorder) 3 [facility] Repository Medications Current Medications Medication Drug Class(es) Dates Sig (Normalized) Sig (Original) [id number] 200 actuat albuterol 0.09 mg/actuat metered dose inhaler (20 sources) beta2-Adrenergic Agonist Start: 12-03-2023 take 2 puff(s) by inhalation every four hours for wheezing albuterol HFA (ProAir HFA) 90 mcg/act inhaler Indications: Pulmonary fibrosis ([facility]) Inhale 2 puffs every 4 (four) hours [...] needed Inhalation every 4 hrs Active amoxicillin 250 mg oral capsule (6 sources) Penicillin-class Antibacterial Start: 05-18-2024 End: 05-25-2024 take 1 capsule by mouth in the morning, then take 1 capsule by mouth in the evening, then take 1 capsule by mouth at bedtime amoxicillin (Amoxil) 250 MG capsule Indications: Acute non-recurrent maxillary sinusitis Take 1 capsule (250 mg) by mouth in the morning and 1 capsule (250 mg) in the evening and 1 capsule (250 mg) before bedtime. Do all this for 7 days. 21 capsule 05/18/2024 05/25/2024 Active Start: 02-29-2024 End: 03-07-2024 take 1 tablet by mouth twice daily amoxicillin (Amoxil) 500 MG tablet Indications: S/P trigger finger release 1 tabs PO twice daily 14 tablet 02/29/2024 03/07/2024 Discontinued azithromycin 250 mg oral tablet (8 sources) Macrolide Antimicrobial Start: 05-13-2024 End: 05-16-2024 take 1 tablet by mouth once daily azithromycin (Zithromax) 250 MG tablet Indications: Chronic sinusitis, unspecified location Take 1 tablet (250 mg) by mouth Daily 6 tablet 05/13/2024 05/16/2024 Discontinued (Therapy completed) Start: 03-06-2024 End: 04-27-2024 azithromycin (Zithromax) 250 MG tablet 03/06/2024 04/27/2024 Discontinued (Therapy completed) cefdinir 300 mg oral capsule (1 source) [...] MG 1/2 tablet Orally at bedtime Active cetirizine hydrochloride 10 mg chewable tablet (6 sources) Histamine-1 Receptor Antagonist Start: 04-27-2024 End: 07-26-2024 cetirizine (ZyrTEC) 10 MG chewable tablet Indications: Dermatitis Chew 0.5 tablets (5 mg) Daily as needed for allergies 45 tablet 04/27/2024 07/26/2024 Active ibuprofen 200 mg oral tablet (17 sources) Nonsteroidal Anti-inflammatory Drug take 1 tablet by mouth every six hours ibuprofen 200 MG tablet Take 200 mg by mouth every 6 (six) hours. Active methylPREDNISolone (2 sources) Corticosteroid Start: 01-15-2024 End: 01-22-2024 methylPREDNISolone (Medrol Dospak) 4 MG tablets Indications: Hives Follow schedule on package instructions 21 tablet 01/15/2024 01/22/2024 Active metroNIDAZOLE 500 mg oral tablet (1 source) Nitroimidazole Antimicrobial take 1 tablet by mouth every twenty-fou r hours metroNIDAZOLE 500 MG 1 tablet Orally Once a day Active nabumetone 500 mg oral tablet (19 sources) Nonsteroidal Anti-inflammatory Drug Start: 12-03-2023 nabumetone [...] # 90 cap(s), Refills(s) 1, Pharmacy: [id number] Start Date: 02/25/19 Status: Ordered triamcinolone acetonide 1 mg/ml topical cream (12 sources) Corticosteroid Start: 04-27-2024 End: 05-27-2024 triamcinolone (Kenalog) 0.1 % cream Indications: Dermatitis Apply topically 2 (two) times a day as needed (pain and swelling) 15 g 2 04/27/2024 05/27/2024 Active Start: 04-27-2024 End: 04-27-2024 triamcinolone acetonide (Kenalog-40) injection 40 mg Start: 04-27-2024 End: 04-27-2024 inject 40 mg by intramuscular injection once 40 mg, Intramuscular, Once, On Thu04/27/24 at 1430, For 1 dose Start: 04-27-2024 End: 04-27-2024 triamcinolone acetonide (Kenalog-40) injection 40 mg Start: 04-27-2024 End: 04-27-2024 inject 40 mg by intramuscular injection once 40 mg, Intramuscular, Once, On Thu04/27/24 at 1430, For 1 dose Start: 04-18-2019 End: 01-20-2024 triamcinolone (Kenalog) 0.1 % cream Apply 1 application topically in the morning and 1 application before bedtime. 04/18/2019 01/20/2024 Discontinued Completed/Discontinued Medications Medication Drug Class(es) Dates Sig (Normalized) Sig (Original) rosuvastatin calcium 10 mg oral tablet (2 sources) HMG-CoA Reductase Inhibitor Start: 04-13-2023 End: 01-20-2024 take 1 tablet by mouth in the morning rosuvastatin (Crestor) 10 MG tablet Indications: Hyperlipidemia, unspecified hyperlipidemia type (CMS/HCC) Take 1 tablet (10 mg) by mouth in the morning. 30 tablet 11 04/13/2023 01/20/2024 Discontinued traMADol hydrochloride 50 mg oral tablet [...] Problem Date Documented Date Episodic/Chronic Allergic reactions (17 sources) Flexural atopic dermatitis; Translations: [Other atopic dermatitis] Onset: 01-21-2023 01-21-2023 Chronic Allergic reactions (2 sources) Inflammatory dermatosis; Translations: [Dermatitis, unspecified] 04-27-2024 Episodic Asthma (18 sources) Asthma; Translations: [Unspecified asthma, uncomplicated] Onset: 01-21-2023 02-16-2019 Chronic Chronic obstructive pulmonary disease and bronchiectasis (1 source) Pulmonary emphysema 02-16-2019 Chronic Disorders of lipid metabolism (17 sources) Hyperlipidemia; Translations: [Hyperlipidemia, unspecified] Onset: 01-21-2023 01-21-2023 Chronic Diverticulosis and diverticulitis (17 sources) Diverticular disease; Translations: [Diverticulosis of intestine, part unspecified, without perforation or abscess without bleeding] Onset: 01-21-2023 01-21-2023 Chronic Esophageal disorders (17 sources) Gastroesophageal reflux disease; Translations: [Gastro-esophageal reflux disease without esophagitis] Onset: 09-21-2009 01-21-2023 Chronic Essential hypertension (17 sources) Benign essential hypertension; Translations: [Essential (primary) hypertension] Onset: 04-13-2023 04-13-2023 Chronic Genitourinary symptoms and ill-defined conditions (1 source) Urge incontinence of urine 02-16-2019 Chronic Genitourinary symptoms and ill-defined conditions (4 sources) Increased frequency of urination; Translations: [Nocturia] 02-16-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 Hyperplasia of prostate (18 sources) Benign prostatic hypertrophy with outflow obstruction; Translations: [Benign prostatic hyperplasia] Onset: 01-21-2023 02-16-2019 Chronic Nonspecific chest pain (4 sources) Chest pain, unspecified; Translations: [CHEST PAIN UNSPECIFIED] Onset: 09-09-2022 Episodic Osteoarthritis (20 sources) Arthritis; Translations: [Unspecified osteoarthritis, unspecified site] Onset: 01-21-2023 02-16-2019 Chronic Other acquired deformities (17 sources) Kyphosis deformity of spine; Translations: [Unspecified kyphosis, site unspecified] Onset: 01-21-2023 01-21-2023 Chronic Other connective tissue disease (6 sources) Triggering of digit; Translations: [Trigger finger, left middle finger] 02-17-2024 Episodic Other connective tissue disease (2 sources) Pain of left hand; Translations: [Pain in left hand] 01-20-2024 Episodic Other connective tissue disease (2 sources) Dupuytren's contracture; Translations: [Palmar fascial fibromatosis [Dupuytren]] 01-20-2024 Episodic Other endocrine disorders (1 source) 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 Other hereditary and degenerative nervous system conditions (17 sources) Impaired cognition; Translations: [Mild cognitive impairment, so stated] Onset: 01-21-2023 01-21-2023 Chronic Other lower respiratory disease (3 sources) Interstitial lung disease; Translations: [Interstitial pulmonary disease, unspecified] Chronic Other lower respiratory disease (4 sources) Interstitial pulmonary disease, unspecified; Translations: [Interstitial pulmonary disease, unspecified] Onset: 10-24-2021 Resolved: 10-24-2021 Chronic Other lower respiratory disease (17 sources) Fibrosis of lung; Translations: [Pulmonary fibrosis, unspecified] Onset: 01-21-2023 01-21-2023 Chronic Other lower respiratory disease (1 source) Other forms of dyspnea; Translations: [OTHER FORMS OF DYSPNEA] Onset: 09-15-2022 Episodic Other lower respiratory disease (2 sources) Persistent cough; Translations: [Persistent cough for 3 weeks or longer] 05-16-2024 Episodic Other male genital disorders (1 source) Encysted hydrocele 05-09-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 Other nervous system disorders (17 sources) Disorder of muscle; Translations: [Myopathy, unspecified] Onset: 03-12-2023 03-12-2023 Chronic Other upper respiratory disease (1 source) Disorder of nasal sinus 02-16-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 Other upper respiratory infections (17 sources) Chronic sinusitis; Translations: [Chronic sinusitis, unspecified] Onset: 02-06-2023 02-06-2023 Chronic Other upper respiratory infections (1 source) Acute maxillary sinusitis; Translations: [Acute maxillary sinusitis, unspecified] 05-18-2024 Episodic Residual codes; unclassified (1 source) Localized edema; Translations: [LOCALIZED EDEMA] Onset: 09-15-2022 Episodic Unclassified (1 source) Finding of sensation of bladder 02-16-2019 Viral infection (3 sources) COVID-19; Translations: [Pneumonia due to other virus not elsewhere classified] 03-08-2024 Episodic Past or Other Problems Problem Classification Problem Date Documented Date Episodic/Chronic Hemorrhoids (17 sources) External hemorrhoids; Translations: [Residual hemorrhoidal skin tags] Onset: 01-21-2023 01-21-2023 Episodic Joint disorders and dislocations; trauma-related (17 sources) Dislocation of temporomandibular joint; Translations: [Dislocation of jaw, unspecified side, initial encounter] Onset: 01-26-2023 01-26-2023 Episodic Malaise and fatigue (17 sources) Fatigue; Translations: [Other fatigue] Onset: 01-26-2023 01-26-2023 Episodic Other connective tissue disease (17 sources) Muscle pain; Translations: [Myalgia, unspecified site] Onset: 02-18-2023 02-18-2023 Episodic Other inflammatory condition of skin (17 sources) Pruritus of skin; Translations: [Pruritus, unspecified] Onset: 01-21-2023 01-21-2023 Episodic Other lower respiratory disease (17 sources) Parietoalveolar pneumopathy; Translations: [Other alveolar and parieto-alveolar conditions] Onset: 01-21-2023 01-21-2023 Episodic Other non-traumatic joint disorders (17 sources) Chronic pain of left upper limb; Translations: [Pain in left shoulder] Onset: 04-13-2023 04-13-2023 Episodic Spondylosis; intervertebral disc disorders; other back problems (17 sources) Cervical radiculopathy; Translations: [Radiculopathy, cervical region] Onset: 01-26-2023 01-26-2023 Episodic Sprains and strains (17 sources) Strain of muscle at thorax level; Translations: [Strain of muscle and tendon of unspecified wall of thorax, initial encounter] Onset: 04-13-2023 04-13-2023 Episodic Results Test Name Value Interpretation Reference Range Facility XR CHEST 2 VIEWSon 5 XR CHEST 2 VIEWS EXAM: XR Chest, Two Views. REASON FOR EXAM: History of pneumonia, cough. COMPARISON: CT report December 09, 2022. FINDINGS: Two images. The cardiac and mediastinal silhouettes are normal in size and position. Pulmonary vascular is normal. There are diffuse reticular markings predominantly peripheral and basilar. There is no pleural effusion or focal lung opacity. Regional skeleton pleural surfaces without acute change. Vertebral augmentation in the upper lumbar spine and lower thoracic compression deformities. Atherosclerosis present. IMPRESSION: 1. 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 Acute interstitial lung disease is in the differential particularly on the left. Follow-up recommended. 2. Chronic lower thoracic compression deformity and vertebral augmentation of the upper lumbar spine. *This report is generated using voice recognition reporting ([employer]). On occasion [employer] erroneously drops words from the report or replaces the spoken word with similar sounding words. Please call with any questions/concerns regarding this report.* Dictated and transcribed 05/17/24/dpd This report has been electronically signed and approved by the interpreting radiologist. Normal Not Available ALL CBC WITH AUTO DIFFon BASOPHILS ABSOLUTE AUTO 0.0 [facility] Basophils/100 WBC (Bld) 0.6 % 0.2 - 2.0 % [facility] Eosinophils/100 WBC (Bld) 1.9 % 0.9 - 7.0 % [facility] Erythrocyte distribution width (RBC) [Ratio] 14.2 % 11.0 - 15.0 % [facility] Hematocrit (Bld) [Volume fraction] 42.1 % 42.0 - 54.0 % [facility] (Bld) [Mass/Vol] 13.6 g/dL Low 14.0 - 18.0 g/dL [facility] IMMATURE GRANULOCYTES ABS AUTO 0.01 [facility] Immature granulocytes/100 WBC (Bld) 0.2 % 0.0 - 0.5 % [facility] Interpretation and review of laboratory results Abnormal [facility] LYMPHOCYTES ABSOLUTE AUTO 1.5 [facility] Lymphocytes/100 WBC (Bld) 23.6 % 20.5 - 60.0 % [facility] MCH (RBC) [Entitic mass] 32.2 pg 25.9 - 34.0 pg [facility] MCHC (RBC) [Mass/Vol] 32.3 g/dL 29.9 - 35.2 g/dL [facility] MCV (RBC) [Entitic vol] 99.5 fL High 80.0 - 94.0 fL [facility] MONOCYTES ABSOLUTE AUTO 0.9 High [facility] Monocytes/100 WBC (Bld) 13.4 % High 1.7 - 12.0 % [facility] NEUTROPHILS ABSOLUTE AUTO 3.9 [facility] Neutrophils/100 WBC (Bld) 60.3 % 43.0 - 75.0 % [facility] Platelet mean volume (Bld) [Entitic vol] 10.4 fL 9.5 - 13.5 fL [facility] TBH EO # 0.1 [facility] PLT 163 [facility] RBC 4.23 Low [facility] WBC 6.4 [facility] XR Hand - left 3 [facility] Result: Examination of the x-rays AP, lateral and oblique of the left hand total of three views with permanent images are saved to the record does show some basilar thumb carpometacarpal joint osteoarthritis with some finger osteoarthritis, diffuse and nonspecific. No evidence of fracture. [facility] Hand - left 3 [facility] Study observation (narrative) [facility] MR SHOULDER LEFT WO IV CONTR Abbie [...] BY: Geoffrey Burton, DO Normal Not Available NM STRESS/REST MULTIon 09-09 NM STRESS/REST MULTI Patient: NICOLE BOBBY Exam Date: 09/09/2022 : 1940 Gender:M Ordering : DR NARAYAN LUU M.D. Admission #: [id number] Family : Order #: [id number] CLICK HERE TO VIEW EXAM RADIOLOGY REPORT [...] Null M.D. on 09/09/2022 at 13:[address] [facility] Vital Signs Date Time Vital Sign Value Performing Clinician Faci lity 05-16-2024 09:15-0500 Body height 167.6 cm Yokasta Hembean PA Work Phone: [facility] 05-16-2024 09:15-0500 Body mass index (BMI) [Ratio] 27.76 kg/m2 Yokasta Hemmer PA Work Phone: [facility] 05-16-2024 09:15-0500 Body temperature 97 [degF] Yokasta Hemmer PA Work Phone: [facility] 05-16-2024 09:15-0500 Body weight 78.02 kg Yokasta Hemmer PA Work Phone: [facility] 05-16-2024 09:15-0500 Diastolic blood pressure 62 mm[Hg] Yokasta Hemmer PA Work Phone: [facility] 05-16-2024 09:15-0500 Heart rate 87 /min Yokasta Hemmer PA Work Phone: [facility] 05-16-2024 09:15-0500 Respiratory rate 18 /min Yokasta Hemmer PA Work Phone: [facility] 05-16-2024 09:15-0500 SaO2% (BldA) [Mass fraction] 96 % Yokasta Hemmer PA Work Phone: [facility] 05-16-2024 09:15-0500 Systolic blood pressure 108 mm[Hg] Yokasta Hemmer PA Work Phone: [facility] 04-27-2024 13:51-0500 Body height 167.6 cm Sheba Oliveira NP Work Phone: [facility] 04-27-2024 13:51-0500 Body mass index (BMI) [Ratio] 28.12 kg/m2 Sheba Oliveira [employer] Work Phone: [facility] 04-27-2024 13:51-0500 Body weight 79.02 kg Sheba Oliveira [employer] Work Phone: [facility] 04-27-2024 13:51-0500 Diastolic blood pressure 72 mm[Hg] Sheab Oliveira [employer] Work Phone: [facility] 04-27-2024 13:51-0500 Heart rate 68 /min Sheba Oliveira [employer] Work Phone: [facility] 04-27-2024 13:51-0500 Respiratory rate 17 /min Sheba Oliveira [employer] Work Phone: [facility] 04-27-2024 13:51-0500 SaO2% (BldA) [Mass fraction] 98 % Sheba Oliveira [employer] Work Phone: [facility] 04-27-2024 13:51-0500 Systolic blood pressure 120 mm[Hg] Sheba Oliveira [employer] Work Phone: [facility] 03-07-2024 13:10-0400 Body height 167.6 cm Dirk Pocos DO Work Phone: [facility] 03-07-2024 13:10-0400 Body mass index (BMI) [Ratio] 28.25 kg/m2 Dirk Pocos DO Work Phone: [facility] 03-07-2024 13:10-0400 Body weight 79.38 kg Dirk Pocos DO Work Phone: [facility] 02-29-2024 13:05-0400 Body height 167.6 cm Dirk Pocos DO Work Phone: [facility] 02-29-2024 13:05-0400 Body mass index (BMI) [Ratio] 28.25 kg/m2 Dirk Pocos DO Work Phone: [facility] 02-29-2024 13:05-0400 Body weight 79.38 kg Dirk Pocos DO Work Phone: [facility] 01-20-2024 08:46-0400 Body height 167.6 cm Dirk Pocos DO Work Phone: [facility] 01-20-2024 08:46-0400 Body mass index (BMI) [Ratio] 28.25 kg/m2 Dirk Pocos DO Work Phone: [facility] 01-20-2024 08:46-0400 Body weight 79.38 kg Dirk Pocos DO Work Phone: [facility] 04-08-2023 09:45-0500 Body height 167.64 cm Jamie Kent Other [facility] Other 04-08-2023 09:45-0500 Body mass index (BMI) [Ratio] 28.24 kg/m2 Bober Yoli Other [facility] Other 04-08-2023 09:45-0500 Body temperature 96.4 [degF] Bober Yoli Other [facility] Other 04-08-2023 09:45-0500 Body weight 79.38 kg Christkaraner Yoli Other [facility] Other 04-08-2023 09:45-0500 Diastolic blood pressure 74 mm[Hg] Jamie Lermadano Other [facility] Other 04-08-2023 09:45-0500 Respiratory rate 20 /min Christkaraner Yoli Other [facility] Other 04-08-2023 09:45-0500 SaO2% (BldA) [Mass fraction] 98 % Jamie Lermadano Other [facility] Other 04-08-2023 09:45-0500 Systolic blood pressure 122 mm[Hg] Christopher Yoli Other [facility] Other 03-26-2022 12:45-0500 Body height 167.64 cm Christopher Yoli Other [facility] Other 03-26-2022 12:45-0500 Body mass index (BMI) [Ratio] 28.08 kg/m2 Christopher Yoli Other [facility] Other 03-26-2022 12:45-0500 Body temperature 97.1 [degF] Christopher Yoli Other [facility] Other 03-26-2022 12:45-0500 Body weight 78.93 kg Christopher Yoli Other [facility] Other 03-26-2022 12:45-0500 Diastolic blood pressure 73 mm[Hg] Christopher Yoli Other [facility] Other 03-26-2022 12:45-0500 Respiratory rate 20 /min Christopher Yoli Other [facility] Other 03-26-2022 12:45-0500 Systolic blood pressure 124 mm[Hg] Christopher Yoli Other [facility] Other 10-24-2021 12:45-0400 Body height 167.64 cm Christopher Yoli Other [facility] Other 10-24-2021 12:45-0400 Body mass index (BMI) [Ratio] 29.05 kg/m2 Christopher Yoli Other [facility] Other 10-24-2021 12:45-0400 Body temperature 97.4 [degF] Jamie Padillano Other [facility] Other 10-24-2021 12:45-0400 Body weight 81.65 kg Juanpearl Lermadano Other [facility] Other 10-24-2021 12:45-0400 Diastolic blood pressure 80 mm[Hg] Jamie Lermadano Other [facility] Other 10-24-2021 12:45-0400 Respiratory rate 20 /min Jamie Lermadano Other [facility] Other 10-24-2021 12:45-0400 SaO2% (BldA) [Mass fraction] 94 % Juanpearl Padillano Other [facility] Other 10-24-2021 12:45-0400 Systolic blood pressure 129 mm[Hg] Jamie Padillano Other [facility] Other Encounters Encounter Date Encounter Type Care Provider Facility Start: 07-18-2024 End: 07-18-2024 ambulatory NARAYAN LUU Not Available Start: 05-18-2024 End: 05-18-2024 Telephone encounter Yokasta Tinajero PA Work Phone: [facility] Comment on above: sick Start: 05-17-2024 End: 05-17-2024 ambulatory YOKASTA TINAJERO Not Available Start: 05-16-2024 End: 05-16-2024 Bamboo flowsheet Yokasta Tinajero PA Work Phone: [facility] Start: 05-16-2024 End: 05-16-2024 Bamboo flowsheet Yokasta Tinajero PA Work Phone: [facility] Start: 05-16-2024 End: 05-16-2024 ambulatory YOKASTA TINAJERO Not Available Start: 05-16-2024 End: 05-16-2024 Office outpatient visit 15 minutes Yokasta Tinajero PA Work Phone: [facility] Comment on above: Pneumonia due to COV ID-19 virus (Primary Dx); Persistent cough for 3 weeks or longer Start: 04-27-2024 End: 04-27-2024 Office outpatient visit 25 minutes Sheba Oliveira [employer] Work Phone: [facility] Comment on above: Dermatitis (Primary Dx) Start: 04-27-2024 End: 04-27-2024 ambulatory SHEBA OLIVEIRA Not Available Start: 04-26-2024 End: 04-26-2024 ambulatory Narayan Luu Facility:[facility] Start: 03-07-2024 End: 03-07-2024 Bamboo flowsheet Dirk Tee Pocos DO Work Phone: [facility] Start: 03-07-2024 End: 03-07-2024 Bamboo flowsheet Dirk Tee Pocos DO Work Phone: [facility] Start: 03-07-2024 End: 03-08-2024 Telephone encounter Narayan Luu MD Work Phone: [facility] Start: 03-07-2024 End: 03-07-2024 ambulatory DIRK MASON Not Available Start: 03-07-2024 End: 03-07-2024 Patient [...] Trigger ring finger of left hand Start: 02-02-2024 End: 02-02-2024 [facility] Result Encounter Generic External Data Provider [facility] Unsolicited Start: 02-02-2024 End: 02-02-2024 [facility] Result Encounter Generic External Data Provider [facility] External [facility] Unsolicited Start: 01-20-2024 End: 01-20-2024 Patient encounter procedure Dirk Tee Pocos DO Work Phone: [facility] Comment on above: Hand pain, left (Linn marquis Dx); Trigger middle finger of left hand; Trigger ring finger of left hand; Dupuytren's contracture; Preoperative testing Start: 01-20-2024 End: 01-20-2024 Patient encounter status Dirk Tee Pocos DO Work Phone: [facility] Start: 01-20-2024 End: 01-20-2024 ambulatory DIRK Tee POCOS Not Available Start: 01-15-2024 End: 01-15-2024 ambulatory Luis STRICKLAND Facility:[facility] Start: 01-15-2024 End: 01-15-2024 Patient encounter procedure Luis STRICKLAND [facility] Start: 12-02-2023 End: 12-02-2023 ambulatory [place] CONTRERAS Not Available Start: 09-10-2023 Non-patient / Non-visit MD Narayan Luu Work Phone: [facility] Work Phone: Start: 09-10-2023 End: 09-10-2023 Patient encounter procedure MD Narayan Luu Work Phone: [facility] Work Phone: Start: 09-10-2023 End: 09-10-2023 ambulatory MD Narayan Luu Work Phone: [facility] Work Phone: Start: 09-02-2023 End: 09-02-2023 ambulatory JESUS Ledezma APLING Not Available Start: 08-19-2023 End: 08-19-2023 ambulatory JESUS Ledezma APLING Not Available Start: 08-03-2023 End: 08-04-2023 ambulatory Monique Bray MD Facility:[facility] Start: 04-13-2023 End: 05-18-2024 Patient encounter procedure Dirk Mason DO Work Phone: [facility] Start: 04-08-2023 End: 04-08-2023 ambulatory Jamie Kent Other [employer] Other Start: 04-08-2023 Office outpatient visit 25 minutes Jamie Kent [facility] Start: 03-18-2023 End: 03-18-2023 ambulatory MD Narayan Luu Work Phone: [facility] Work Phone: Start: 03-18-2023 End: 03-18-2023 Patient encounter procedure MD Narayan Luu Work Phone: [facility] Work Phone: Start: 12-09-2022 End: 12-09-2022 ambulatory MD Narayan Luu Work Phone: [facility] Work Phone: Start: 12-09-2022 End: 12-09-2022 Patient encounter procedure MD Narayan Luu Work Phone: [facility] [place] Work Phone: Start: 10-15-2022 End: 10-15-2022 ambulatory MD Narayan Luu Work Phone: [facility] Work Phone: Start: 10-15-2022 End: 10-15-2022 Patient encounter procedure MD Narayan Luu Work Phone: [facility] Work Phone: Start: 09-09-2022 End: 09-10-[address] NARAYAN LUU Facility: Start: 03-26-2022 End: 03-26-2022 ambulatory Jamie Kent Other [employer] Other Start: 03-26-2022 Office outpatient visit 15 minutes Jamie Kent [facility] Start: 03-18-2022 End: 03-18-2022 ambulatory MD Narayan Luu Work Phone: [facility] Work Phone: Start: 03-18-2022 End: 03-18-2022 Patient encounter procedure MD Narayan Luu Work Phone: [facility] Start: 11-06-2021 End: 11-06-2021 Patient encounter procedure MD Narayan Luu Work Phone: [facility] Start: 10-24-2021 End: 10-24-2021 ambulatory Jamie Kent Other [employer] Other Start: 10-24-2021 Office outpatient visit 25 minutes Christopher Yoli [facility] Start: 12-08-2016 End: 12-09-2016 Ambulatory DEFAULT PHYSICIAN Facility:[facility] Start: 11-20-2016 End: 11-21-2016 Ambulatory DEFAULT PHYSICIAN Facility:[facility] Procedures Date Procedure Procedure Detail Performing Clinician Start: 02-02-2024 ALL CBC WITH AUTO DIFF Dirk Tee Pocos DO Work Phone: Start: 01-20-2024 Radex hand minimum 3 views Bernard Pocos DO Work Phone: Start: 12-09-2022 CT of chest without contrast MD Narayan Luu Work Phone: back surgery Luis STRICKLAND Colonoscopy Luis STRICKLAND H/O: surgery S/P trigger fing er release Dirk Tee Pocgeorgette DO Work Phone: H/O: surgery S/P trigger fing er release Dirk Tee Pocos DO Work Phone: Tonsillectomy Luis STRICKLAND Vasectomy Luis STRICKLAND Plan of Treatment Date Care Activity Detail Author Start: 08-22-2024 End: 08-22-2024 Patient encounter procedure 08/22/2024 10:30 AM EDT Office Visit [facility] [address] [facility] [address] [place] [address] Narayan Luu MD [address] [facility] [address] [place] [address] [facility] Start: 05-16-2024 End: 05-16-2025 PNEUMONIA (HTRX) PNEUMONIA (HTRX) Lab Routine Persistent cough for 3 weeks or longer Expected: 05/16/2024 (Approximate), Expires: 05/16/2025 [facility] Comment on above: Expected: 05/16/2024 (Approximate), Expires: 05/16/2025 Start: 05-16-2024 End: 05-16-2025 XR Chest 2 Views XR chest 2 views Imaging Routine Persistent cough for 3 weeks or longer Expected: 05/16/2024, Expires: 05/16/2025 [facility] Work Phone: Comment on above: Expected: 05/16/2024 , Expires: 05/16/2025 Start: 03-07-2024 End: 03-07-2024 Patient encounter procedure 03/07/2024 1:00 PM EDT Office Visit [facility] [address] [place] [facility] [place] [address] Dirk Mason, DO [address] [place] [address] [facility] Start: 02-29-2024 End: 02-29-2024 Patient encounter procedure [facility] Comment on above: Arrived Start: 02-18-2024 End: 02-18-2024 Patient encounter procedure 02/18/2024 8:00 AM EDT Procedure Visit [facility] Dirk Mason, DO [address] [facility] [place] [address] [facility] Start: 01-20-2024 End: 01-19-2025 Basic metabolic 1998 panel - Serum or Plasma Basic metabolic panel Lab Routine Preoperative testing Expected: 01/20/2024 (Approximate), Expires: 01/19/2025 [facility] Work Phone: Comment on above: Expected: 01/20/2024 (Approximate), Expires: 01/19/2025 Start: 01-20-2024 End: 01-19-2025 CBC W Auto Differential panel - Blood CBC auto differential Lab Routine Preoperative testing Expected: 01/20/2024 (Approximate), Expires: 01/19/2025 [facility] Comment on above: Expected: 01/20/2024 (Approximate), Expires: 01/19/2025 Start: 01-20-2024 End: 01-19-2025 ECG 12 lead ECG 12 lead ECG Routine Preoperative testing Expected: 01/20/2024 (Approximate), Expires: 01/19/2025 [facility] Comment on above: Expected: 01/20/2024 (Approximate), Expires: 01/19/2025 Start: 01-10-2024 Influenza vaccination Influenza Vacc ine (#1) [facility] Immunizations Immunization Date Immunization Notes Care Provider Fa [facility] 02-21-2023 influenza virus vaccine, unspecified formulation Dirk Mason DO Work Phone: [facility] 02-21-2022 COVID-19 Pfizer (bivalent) Jamie Kent Other [facility] 02-19-2022 Influenza, High-dose Seasonal, Quadrivalent, Preservative Free Dirk Pocos DO Work Phone: [facility] 10-04-2021 COVID-19 Pfizer Christopher Yoli Other [facility] 04-16-2021 Influenza, Seasonal, Quadrivalent, Adjuvanted Dirk Pocos DO Work Phone: [facility] 02-11-2021 COVID-19 Vaccine Pfi zer - Documentation Purposes Only Christopher Yoli Other [facility] 06-23-2020 Do not use COVID-19 Pfizer 2 dose Christopher Yoli Other [facility] 06-02-2020 Do not use COVID-19 Pfizer 2 dose Christopher Yoli Other [facility] 03-01-2020 pneumococcal conjuga te vaccine, 13 valent Dirk Pocos DO Work Phone: [facility] 02-21-2020 influenza, high dose seasonal, preservative-free Dirk Pocos DO Work Phone: [facility] 04-20-2019 pneumococcal conjuga te vaccine, 13 valent Dirk Pocos DO Work Phone: [facility] 03-03-2019 influenza, high dose seasonal, preservative-free Dirk Pocos DO Work Phone: [facility] 02-08-2019 influenza virus vaccine, live, attenuated, for intranasal use Luis STRICKLAND [facility] 02-17-2018 influenza, high dose seasonal, preservative-free Dirk Pocos DO Work Phone: [facility] 01-21-2017 influenza, high dose seasonal, preservative-free Dirk Pocos DO Work Phone: [facility] 12-25-2016 tetanus toxoid, redu keely diphtheria toxoid, and acellular pertussis vaccine, adsorbed Dirk Pocos DO Work Phone: [facility] 03-12-2016 influenza, high dose seasonal, preservative-free Dirk Pocos DO Work Phone: [facility] 04-16-2015 influenza, high dose seasonal, preservative-free Dirk Pocos DO Work Phone: [facility] 02-08-2014 influenza, high dose seasonal, preservative-free Dirk Pocos DO Work Phone: [facility] 04-10-2013 pneumococcal polysaccharide vaccine, 23 valent Dirk Pocos DO Work Phone: [facility] 02-26-2012 seasonal influenza, intradermal, preservative free Dirk Pocos DO Work Phone: [facility] 01-27-2011 pneumococcal polysaccharide vaccine, 23 valent Dirk Pocos DO Work Phone: [facility] Payers Date Payer Category Payer Self-pay [id number] 2023 Private Health Insurance 2022 Medicaid [employer]NA MEDICARE A DVANTAGE [id number] 2022 Medicare AETNA MEDICARE A DVANTAGE AETNA MEDICARE REPLACEMENT [id number] 2022-Present [address] [place] [address] [id number] 2019 Private Health Insurance [id number] 1961 Medicare [id number] 1938 Unknown [id number] [id number]. 593 1938 Unknown [id number] 2.16.840.1.871453.3.579.2. 196 1938 Unknown [id number] [id number]. 727 1938 Unknown [id number] 2.16.840.1.951860.3.579.2. 1259 1938 Unknown [id number] 2.16.840.1.924700.3.579.2. 1259 1938 Unknown [id number] 2.16.840.1.318662.3.579.2. 1259 1938 Unknown [id number] 2.16.840.1.601010.3.579.2. 1259 1938 Unknown [id number] 2.16.840.1.541340.3.579.2. 1259 1938 Unknown [id number] 2.16.840.1.339570.3.579.2. 1259 1938 Unknown [id number] 2.16.840.1.885013.3.579.2. 1259 1938 Unknown [id number] 2.16.840.1.803889.3.579.2. 1259 1938 Unknown [id number] 2.16.840.1.548409.3.579.2. 1259 1938 Unknown [id number] 2.16.840.1.454630.3.579.2. 1259 1938 Unknown [id number] 2.16.840.1.361291.3.579.2. 1259 Unknown Unknown [id number] 2.16.840.1.890620.3.579.2. 531 Unknown [id number] [id number]. 531 Social History Date Type Detail Facility Start: 05-06-2023 End: 05-16-2024 Sex Assigned At [facility] Start: 1940 Sex Assigned At Male F [facility] Start: 09-10-2023 Tobacco smoking stat [facility] Ex-smoker (finding) [facility] Start: 05-09-2019 End: 01-21-2023 Tobacco smoking status Never smoked tobacco (finding) [facility] Tobacco smoking status Never [facility] Start: 01-21-2023 Tobacco use and exposure Smoke less tobacco non-user [facility] Start: 01-20-2024 End: 05-16-2024 Alcoholic beverage intake Ex-drinker (finding) [facility] Start: 05-06-2023 End: 05-16-2024 History of Social function [facility] Within the last year , have you been afraid of your partner or ex-partner? No [facility] Do you belong to any clubs or organizations such as religion groups, unions, fraternal or athletic groups, or [...] Not at all [facility] (I/We) worried wheth er (my/our) food would run out before (I/we) got money to buy more. Never true [facility] Start: 02-22-2023 Alcohol Comment caffeine: coffee,chocolate [facility] Start: 1940 Sex assigned at Not on file [facility] Clinical Notes 10-24-2021 to 05-18-2024 Telephone Encounter - JACOB Cortes - 05/18/2024 4:52 PM ESTTelephone Encounter - JACOB Cortes - 05/18/2024 4:52 PM ESTTelephone Encounter - Azucena Rae LPN - 05/18/2024 3:27 PM EST Note Date & Type Note Facility 05-18-2024 Telephone encount er Note Amoxicillin sent. [facility] 05-18-2024 Miscellaneous Notes Formattin g of this note might be different from the original. Amoxicillin sent. Pt states he does think he has a sinus infection he has a lot of post nasal drainage he thinks he would be able to tolerate the amoxil 250mg does he was made aware to take with food Please let pt know that I am happy to try a medication for him if he would like to do so. Due to how long he has had symptoms, we would be justified in trying an antibiotic. The swab does not test for everything, but many of the most common. I know he was concerned about his stomach, so he could try taking it with food if he wants to do so. I would recommend Amoxicillin which he has taken in the past. Let me know if pt would like to try an antibiotic. Pt states he is using mucinex, and he is coughing (hacking more) , he has to sleep sitting up due to the coughing at nighttime. He stated he thinks there is something there still making him cough He was advised to continue the mucinex and also to stay hydrated Please call patient and let pt know that his respiratory swab came back negative, was tested for 26 of the most common bacteria and virus strains that can cause pneumonia. His chest x-ray showed changes similar to what has been seen on his lung CT's and x-rays in the past. He can try over the counter Mucinex if needed to help with clearing phlegm. He can contact the office if symptoms have not improved by next week. documented in this encounter [facility] 05-18-2024 Telephone encount er Note Pt states he does think he has a sinus infection he has a lot of post nasal drainage he thinks he would be able to tolerate the amoxil 250mg does he was made aware to take with food [facility] 05-18-2024 Telephone encount er Note Please let pt know that I am happy to try a medication for him if he would like to do so. Due to how long he has had symptoms, we would be justified in trying an antibiotic. The swab does not test for everything, but many of the most common. I know he was concerned about his stomach, so he could try taking it with food if he wants to do so. I would recommend Amoxicillin which he has taken in the past. Let me know if pt would like to try an antibiotic. [facility] 05-18-2024 Telephone encount er Note Pt states he is using mucinex, and he is coughing (hacking more) , he has to sleep sitting up due to the coughing at nighttime. He stated he thinks there is something there still making him cough He was advised to continue the mucinex and also to stay hydrated [facility] 05-18-2024 Telephone encount er Note Please call patient and let pt know that his respiratory swab came back negative, was tested for 26 of the most common bacteria and virus strains that can cause pneumonia. His chest x-ray showed changes similar to what has been seen on his lung CT's and x-rays in the past. He can try over the counter Mucinex if needed to help with clearing phlegm. He can contact the office if symptoms have not improved by next week. [facility] 05-16-2024 History of Presen t illness Narrative Images from the original note were not included. Subjective Patient ID: Marina Bobby is a 83 y.o. male who presents for cough. Marina is present today for evaluation of cough. Admits cough with clear, thick phlegm, SOB, wheezing, sinus pressure, headache, bilateral ear pain, sore throat, nasal congestion, runny nose, hoarseness. State back in February he did go to [facility] and was diagnosed with Pneumonia, rx'd z-pack and has had all these symptoms since he went to the ER. Pt has seen a specialist in [place] and was told he had a fungal infection in his sinuses. Was given an inhaled medication and symptoms improved. Current Outpatient Medications on File Prior to Visit Medication Sig Dispense Refill albuterol HFA (ProAir HFA) 90 mcg/act inhaler Inhale 2 puffs every 4 (four) hours if needed for wheezing 18 g 11 cetirizine (ZyrTEC) 10 MG chewable tablet Chew 0.5 tablets (5 mg) Daily as needed for allergies 45 tablet 0 ibuprofen 200 MG tablet Take 200 mg by mouth every 6 (six) hours. nabumetone (Relafen) 500 MG tablet Take 1 tablet (500 mg) by mouth at noon and 1 tablet (500 mg) in the evening. Take with food. 180 tablet 3 triamcinolone (Kenalog) 0.1 % cream Apply topically 2 (two) times a day as needed (pain and swelling) 15 g 2 [DISCONTINUED] azithromycin (Zithromax) 250 MG tablet Take 1 tablet (250 mg) by mouth Daily 6 tablet 0 No current facility-administered medications on file prior to visit. I have reviewed and reconciled the history and medication list with the patient today. No Known Allergies Social History Tobacco Use Smoking status: Never Smokeless tobacco: Never Vaping Use Vaping status: Every Day Substance Use Topics Alcohol use: Not Currently Comment: caffeine: coffee,chocolate Drug use: Defer Family History Problem Relation Name Age of Onset Glaucoma Mother Heart disease Father Psoriasis Neg Hx Past Medical History: Diagnosis Date Asthma (CMS/HCC) Bursitis of left hip 2012 Global LV function is hyperdynamic EF 65-70%. No wall motion abnormalities. Mild LVH. Right ventricle is normal in size and systolic function. No significant valvular abnormalities 01/07/2021 H/O myocardial perfusion scan 09/09/2022 Normal nuclear medicine myocardial perfusion scan History of CT scan 10/10/2018 shows Diverticulosis Pulmonary Fbrosis Interstitial lung disease (CMS/HCC) 12/21/2020 Mild to moderate interstitial lung disease Consider fibrosis, moderate peribronchial thickening Sinusitis Past Surgical History: Procedure Laterality Date BACK SURGERY 2007 kyphoplasty LUMBAR SPINE SURGERY [address] Buckley - cortisone shots;Disease:Left hip bursitis OTHER SURGICAL HISTORY 08/2018 Injections and RFA OTHER SURGICAL HISTORY 2001 ENT surgery [facility] OTHER SURGICAL HISTORY 03/[address] Strickland SINUS SURGERY TOE SURGERY Right 04/2023 great toe, ingrown toe nail TRIGGER FINGER RELEASE Left 2013 Trigger thumb TRIGGER FINGER RELEASE Left 02/18/2024 LMF LRF DAP Visit Vitals BP 108/62 Pulse 87 Temp 97 F Resp 18 Ht 5' 6 Wt 172 lb SpO2 96% BMI 27.76 kg/m Smoking Status Never BSA 1.91 m Review of Systems Constitutional: Negative for chills, fatigue and fever. HENT: Positive for ear pain, rhinorrhea, sinus pressure, sinus pain, sore throat and voice change. Respiratory: Positive for cough, shortness of breath and wheezing. Cardiovascular: Negative for chest pain, palpitations and leg swelling. Gastrointestinal: Negative for abdominal pain, constipation, diarrhea, nausea and vomiting. Skin: Negative for rash. Neurological: Positive for headaches. Objective Physical Exam Constitutional: General: He is not in acute distress. Appearance: Normal appearance. HENT: Head: Normocephalic and atraumatic. Right Ear: Ear canal normal. Tympanic membrane is erythematous (Very faint). Left Ear: Ear canal normal. Tympanic membrane is erythematous (Very faint). Nose: Right Turbinates: Swollen (Mild) and pale. Left Turbinates: Swollen (Mild) and pale. Mouth/Throat: Mouth: Mucous membranes are moist. Pharynx: Posterior oropharyngeal erythema (Mild) present. Eyes: General: No scleral icterus. Neck: Comments: Tender over postauricular area Cardiovascular: Rate and Rhythm: Normal rate and regular rhythm. Heart sounds: No murmur heard. Pulmonary: Effort: Pulmonary effort is normal. No respiratory distress. Breath sounds: No wheezing, rhonchi or rales. Comments: Moist cough with deep inspiration. Lung sounds harsh, improved after coughing Musculoskeletal: General: No swelling. Lymphadenopathy: Cervical: Cervical adenopathy (Posterior cervical on left) present. Skin: General: Skin is warm and dry. Neurological: General: No focal deficit present. Mental Status: He is alert and oriented to person, place, and time. Psychiatric: Mood and Affect: Mood normal. Behavior: Behavior is agitated (Frustrated regarding duration of symptoms). Assessment/Plan Diagnoses and all orders for this visit: Pneumonia due to COVID-19 virus Patient was seen at [facility] ER on 03/06/2024. Was given a Z-pack which pt states gave him a fever and made his cough worse. Advised the fever and cough were likely due to the pneumonia. He is hesitant to take any medications, concerned they may affect his stomach. Will obtain chest x-ray for further evaluation. He will get this done at [facility] in [place]. Will notify pt of the results once received. He can call the office on if he has not heard about his results. Persistent cough for 3 weeks or longer - XR chest 2 views; Future - PNEUMONIA (HTRX); Future Throat swab obtained today for send out. Advised pt that this swab does not check for fungal infection. If this send out is negative, may need further evaluation. He will continue OTC Robitussin for now for the cough. Declines trying new medication for cough. Follow up for Medicare Wellness Visit. documented in this encounter [facility] 04-27-2024 History of Presen t illness Narrative Images from the original note were not included. Subjective Patient ID: Marina Bobby is a 83 y.o. male who presents for itching. Marina presents today for itching on his head, eyes, and forehead, due to allergies. Current Outpatient Medications on File Prior to Visit Medication Sig Dispense Refill albuterol HFA (ProAir HFA) 90 mcg/act inhaler Inhale 2 puffs every 4 (four) hours if needed for wheezing 18 g 11 azithromycin (Zithromax) 250 MG tablet ibuprofen 200 MG tablet Take 200 mg by mouth every 6 (six) hours. nabumetone (Relafen) 500 MG tablet Take 1 tablet (500 mg) by mouth at noon and 1 tablet (500 mg) in the evening. Take with food. 180 tablet 3 No current facility-administered medications on file prior to visit. I have reviewed and reconciled the history and medication list with the patient today. No Known Allergies Social History Tobacco Use Smoking status: Never Smokeless tobacco: Never Vaping Use Vaping status: Every Day Substance Use Topics Alcohol use: Not Currently Comment: caffeine: coffee,chocolate Drug use: Defer Family History Problem Relation Name Age of Onset Glaucoma Mother Heart disease Father Psoriasis Neg Hx Past Medical History: Diagnosis Date Asthma (CMS/HCC) Bursitis of left hip 2012 Global LV function is hyperdynamic EF 65-70%. No wall motion abnormalities. Mild LVH. Right ventricle is normal in size and systolic function. No significant valvular abnormalities 01/07/2021 H/O myocardial perfusion scan 09/09/2022 Normal nuclear medicine myocardial perfusion scan History of CT scan 10/10/2018 shows Diverticulosis Pulmonary Fbrosis Interstitial lung disease (CMS/HCC) 12/21/2020 Mild to moderate interstitial lung disease Consider fibrosis, moderate peribronchial thickening Sinusitis Past Surgical History: Procedure Laterality Date BACK SURGERY 2007 kyphoplasty LUMBAR SPINE SURGERY [address] Buckley - cortisonjg shots;Disease:Left hip bursitis OTHER SURGICAL HISTORY 08/2018 Injections and RFA OTHER SURGICAL HISTORY 2001 ENT surgery [facility] OTHER SURGICAL HISTORY 03/[address] Strickland SINUS SURGERY TOE SURGERY Right 04/2023 great toe, ingrown toe nail TRIGGER FINGER RELEASE Left 2013 Trigger thumb TRIGGER FINGER RELEASE Left 02/18/2024 LMF LRF DAP Visit Vitals Ht 5' 6 BMI 28.25 kg/m Smoking Status Never BSA 1.92 m Review of Systems Constitutional: Negative. HENT: Negative. Eyes: Negative. Respiratory: Negative. Cardiovascular: Negative. Gastrointestinal: Negative. Genitourinary: Negative. Musculoskeletal: Negative. Skin: Itching across his forehead and scalp, mild redness Endocrine: Negative. Objective Faint area of redness to the forehead and scalp, complaint of itching Assessment/Plan 1. Dermatitis (Primary) Discussed diagnosis, use of triamcinolone cream, zyrtec and their most common side effects. He is advised to continue as ordered and follow up as needed. - triamcinolone (Kenalog) 0.1 % cream; Apply topically 2 (two) times a day as needed (pain and swelling) Dispense: 15 g; Refill: 2 - cetirizine (ZyrTEC) 10 MG chewable tablet; Chew 0.5 tablets (5 mg) Daily as needed for allergies Dispense: 45 tablet; Refill: 0 - triamcinolone acetonide (Kenalog-40) injection 40 mg No follow-ups on file. documented in this encounter [facility] 04-27-2024 Instructions Sheba Oliveira NP - 04/27/2024 2:00 PM EST Triamcinolone cream added today. Zyrtec ordered today. documented in this encounter [facility] 03-08-2024 Telephone encount er Note Pt came into the office. He is still not feeling well. He would like another med to make him better. He is upset he never got a call back yesterday. [facility] 03-08-2024 Miscellaneous Notes Formattin g of this [...] . Pt stated he went to the [facility] ER on 03/06 for this they [...] office after 430 documented in this encounter [facility] 03-07-2024 Telephone encount er Note Pt has been on abx (zpak) for three days and he is having diarrhea from the medication . Pt stated he went to the [facility] ER on 03/06 for this they [...] are not in the office after 430 [facility] 03-07-2024 History of Presen t illness Narrative Images from the original note were not included. Marina Bobby is a 83 y.o. male presents with chief complaint of left middle and ring finger trigger release with superficial surgical infection. HPI: Marina returns here today for all the above. His infection did clear up nicely, however, he has now developed a pneumonia. He is currently on Zithromax from the [place] ER as of yesterday. SUBJECTIVE: MEDICATIONS: Current [...] Surgical History: Procedure Laterality Date BACK SURGERY 2008 kyphoplasty LUMBAR SPINE SURGERY 1994 OTHER SURGICAL [...] to avoid further contracture. Cosigned by Dirk Mason DO at 03/10/2024 11:47 AM EDT documented in this encounter [facility] 02-29-2024 History of Presen t illness Narrative Images from the original note were not included. Marina Bobby is a 83 y.o. male presents with chief complaint of follow up left mid and ring finger trigger release, 02-18-2024. HPI: Marina returns here today for repeat evaluation of [...] problems in the meantime. Cosigned by Dirk Mason DO at 03/02/2024 12:40 PM EDT documented in this encounter [facility] 01-20-2024 History of Presen t illness Narrative Images from the original note were not included. GENERAL HISTORY AND PHYSICAL: NAME: Marina Bobby : 1940 CHIEF COMPLAINT: Left middle and ring finger pain and triggering. HISTORY OF PRESENT ILLNESS: This is a 83 y.o. male who presents for a pre-op H&P. Marina is an 83-year-old right hand dominant white male who presents complaining of pain and difficulty about his left mid and ring finger. He does report significant stiffness. He did have a bout of significant swelling. He was given a Medrol dose pack which was helpful. He is getting some injections in his back. He does have a history of trigger finger release in the past. He does also question a bump over his palmar area. Right hand is okay. PAST MEDICAL HISTORY: Past Medical History: Diagnosis Date Asthma (CMS/HCC) Bursitis of left hip 2012 Global LV function is hyperdynamic EF 65-70%. No wall motion abnormalities. Mild LVH. Right ventricle is normal in size and systolic function. No significant valvular abnormalities 01/07/2021 H/O myocardial perfusion scan 09/09/2022 Normal nuclear medicine myocardial perfusion scan History of CT scan 10/10/2018 shows Diverticulosis Pulmonary Fbrosis Interstitial lung disease (CMS/HCC) 12/21/2020 Mild to moderate interstitial lung disease Consider fibrosis, moderate peribronchial thickening Sinusitis PAST SURGICAL HISTORY: Past Surgical History: Procedure Laterality Date BACK SURGERY 2007 kyphoplasty LUMBAR SPINE SURGERY [address] Buckley - cortisonjg shots;Disease:Left hip bursitis OTHER SURGICAL HISTORY 08/2018 Injections and RFA OTHER SURGICAL HISTORY 2001 ENT surgery [facility] OTHER SURGICAL HISTORY 03/[address] Strickland SINUS SURGERY TOE SURGERY Right 04/2023 great toe, ingrown toe nail TRIGGER FINGER RELEASE Left 2013 Trigger thumb SOCIAL HISTORY: Social History Occupational History Not on file Tobacco Use Smoking status: Never Smokeless tobacco: Never Substance and Sexual Activity Alcohol use: Not Currently Comment: caffeine: coffee,chocolate Drug use: Not on file Sexual activity: Not on file ALLERGIES: No Known Allergies MEDICATIONS: Current Outpatient Medications Medication Instructions albuterol HFA (ProAir HFA) 90 mcg/act inhaler 2 puffs, Inhalation, Every 4 hours PRN ibuprofen 200 mg, Oral, Every 6 hours methylPREDNISolone (Medrol Dospak) 4 MG tablets Follow schedule on package instructions nabumetone (RELAFEN) 500 mg, Oral, Twice a day (mid-day and evening), Take with food REVIEW OF SYSTEMS: The review of systems, history and current medications list are all reviewed today. Vitals: Visit Vitals Ht 5' 6 Wt 175 lb BMI 28.25 kg/m Smoking Status Never BSA 1.92 m PHYSICAL EXAM: His orthopedic exam here today reveals focal tenderness to palpation rather significant in nature right over the A1 madai of the mid and ring finger. No mercedes triggering, although he is very guarded. 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 He does have some finger deformity otherwise from arthritis. His neurocirculatory status is intact. Range of motion is a little bit stiff bilaterally. No tenderness on the right side. His radial and ulnar pulses are brisk bilaterally. Negative Tinel's and Phalen's at the level of the wrist. 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 No evidence of fracture. Surgical History and Physical: GENERAL AND PSYCHOLOGICAL: The patient is alert and oriented for age. HEAD AND E.E.N.T.: The skull is normocephalic. There is no mass or sign of trauma. NECK: The neck is supple. There is good range of motion. There is no mass or adenopathy appreciated. The thyroid is not enlarged. CARDIAC: The heart is regular. There is no murmur or ectopy appreciated. LUNGS: Inspiratory and expiratory excursions are symmetrical. The lung finnegan are clear in all quadrants. ABDOMEN: The texture is soft. Bowel sounds are heard well in all quadrants. There is no tenderness to palpation. There is no organomegaly appreciated. OSTEOPATHIC AND STRUCTURAL: There is no gross evidence of kyphosis, lordosis, scoliosis, or apparent leg length discrepancy, with no acute tissue texture changes in sitting or standing positions. ASSESSMENT: Left middle and ring finger trigger digit with Dupuytren's contracture. PLAN: The findings are discussed. We did outline the pathophysiology and the differences here today. His primary causative factor would be that of trigger digit. He would like definitive measures and surgery. We did discuss all alternatives including corticosteroid injection. We will set him up for surgical intervention. We did outline the risks, complications, and reasonable expectations of trigger finger release. This will be the left mid and ring finger in the same setting. We will use a brief anesthetic. We will define his preoperative risk assessment with Dr. Kent as he does have interstitial lung disease. It does appear to be stable by the last note. We did outline potential risks as being that of infection, nerve or blood vessel injury, wound healing difficulty and dehiscence, the expectations with regard to recovery and return to function. He does voice understanding of this. We did define the differences with Dupuytren's and recommended nothing for talar tilt test. We did print exercises out of the education module for that information for him. He does voice understanding. All questions are otherwise answered. We did define tentative dating. Testing will be done accordingly. Follow up letter sent to Dr. Luu and Dr. Kent. Dirk Mason D.O. documented in this encounter [facility] 04-08-2023 Evaluation note Encounter Date Diagnosis Assessment Notes Mar, Interstitial lung disease (ICD-10 - J84.9) [employer] Other 11-16-2022 Evaluation note* Encounter Date Diagnosis Assessment Notes Treatment Notes Treatment Clinical Notes Mar, Interstitial lung disease (ICD-10 - J84.9) [employer] Other 06-16-2022 Evaluation note* Encounter Date Diagnosis Assessment Notes Treatment Notes Treatment Clinical Notes Oct, Interstitial lung disease (ICD-10 - J84.9) [employer] Other Evaluation + Plan note No data available for this section [facility] evaluation noteNo assessment information available [facility] Work Phone: Evaluation note* Diagnosis Trigger middle [...] [facility] Diagnosis Hand pain, left- Primary Pain in soft tissues of limb Trigger middle finger of left hand Trigger ring finger of left hand Dupuytren's contracture Contracture of palmar fascia Preoperative testing Unspecified pre-operative examination [facility] [...] shoulder pain Pain in joint, shoulder region Dermatitis- Primary Contact dermatitis and other eczema, due to unspecified cause [facility] [...] region Pneumonia due to COVID-19 virus- Primary Persistent cough for 3 weeks or longer documented in this encounter [facility] Healthcare[facility]* Diagnosis Dislocation of temporomandibular [...] shoulder pain Pain in joint, shoulder region Acute non-recurrent maxillary sinusitis- Primary documented in this encounter [facility] HealthcareHistory general Narrative - Reported* Type Description Date Medical History lt. hip bursitis Medical History sinusitis Medical History asthma Medical History diverticulosis Medical History pulmonary fibrosis Medical History pneumonia Medical History interstitial lung disease Surgical History sinus surgery Surgical History back surgery Surgical History kyphoplasty 2008 Surgical History lumbar back 1994 Surgical History trigger thumb left 2013 Surgical History RFA inj. 2019 Surgical History hydrocele repair rt. 2019 Surgical History ENT surgery 2002 Hospitalization History surgery [employer] [facility] Other History general Narrative - Reported* Type [...] surgery 2002 Hospitalization History surgery Hospitalization History [facility] pleurcy 07/2022 [facility] Other Hospital Discharge instructions No data available for this section [facility] progress note No data available for this section [facility] Summary Purpose Family History No Family [...] section and content) DATE CREATED AUTHOR 11/04/2017 [facility] DATE CREATED AUTHOR AUTHOR'S ORGANIZ ATION 09/16/2022 [facility] DATE CREATED AUTHOR AUTHOR'S ORGANIZ ATION 09/15/2023 [facility] DATE CREATED AUTHOR AUTHOR'S ORGANIZ ATION 01/17/2024 [facility] DATE CREATED AUTHOR AUTHOR'S ORGANIZ ATION 05/03/2024 [facility] DATE CREATED AUTHOR AUTHOR'S ORGANIZ ATION 07/19/2024 [facility] EPIC REASON FOR VISIT (unrecogniz ed section and content) Reason Comments Pain Reason Onset Date Comments sick 05/18/2024 Care Teams (unrecognized sec tion and content) [...] Other Provider Active Start: September 10, 2023 [employer]rain [employer]er Relationship Specialty Start Date End Date Narayan Luu MD [address] [place] [address] PCP - [employer] 05/11/20 Narayan Luu MD [address] [place] [address] PCP - General Family Medicine 09/16/22 [employer]rain Buyer Relationship Specialty Start Date End Date Narayan Luu MD [address] [place] [address] PCP - [employer] 05/11/20 Narayan Luu MD [address] [place] [address] PCP - General Family Medicine 09/16/22 Grain Buyer Relationship Specialty Start Date End Date Narayan Luu MD [address] [place] [address] PCP - [employer] 05/11/20 Narayan Luu MD [address] [place] [address] PCP - General Family Medicine 09/16/22 Grain Buyer Relationship Specialty Start Date End Date Narayan Luu MD [address] [place] [address] PCP - [employer] 05/11/20 Narayan Luu MD [address] [place] [address] PCP - General Family Medicine 09/16/22 Grain Buyer Relationship Specialty Start Date End Date Narayan Luu MD [address] [place] [address] PCP - [employer] 05/11/20 Narayan Luu MD [address] [place] [address] PCP - General Family Medicine 09/16/22 Grain Buyer Relationship Specialty Start Date End Date Narayan Luu MD [address] [place] [address] PCP - [employer] 05/11/20 Narayan Luu MD [address] [place] [address] PCP - General Family Medicine 09/16/22 Grain Buyer Relationship Specialty Start Date End Date Narayan Luu MD [address] [place] [address] PCP - [employer] 05/11/20 Narayan Luu MD [address] [place] [address] PCP - General Family Medicine 09/16/22 Grain Buyer Relationship Specialty Start Date End Date Narayan Luu MD [address] [place] [address] PCP - [employer] 05/11/20 Narayan Luu MD [address] [place] [address] PCP - General Family Medicine 09/16/22 Grain Buyer Relationship Specialty Start Date End Date Narayan Luu MD [address] [facility] [address] [place] [address] PCP - Aet 05/11/20 Narayan Luu MD [address] [facility] [address] [place] [address] PCP - General Family Medicine 09/16/22 Grain Buyer Relationship Specialty Start Date End Date Narayan Luu MD [address] [facility] [address] [place] [address] PCP - Aet 05/11/20 Narayan Luu MD [address] [facility] [address] [place] [address] PCP - General Family Medicine 09/16/22 Grain Buyer Relationship Specialty Start Date End Date Narayan Luu MD [address] [facility] [address] [place] [address] PCP - Aet 05/11/20 Narayan Luu MD [address] [facility] [address] [place] [address] PCP - General Family Medicine 09/16/22 Goals [...] BE BASED ON THE PRIMARY CLINICAL RECORDS. [facility]. provides no warranty or guarantee of the accuracy or completeness of information in this document.
== END 2024-07-21 11:49 | disposition home or self-care (01) ==
LOC: CARD 11:49
PROVIDERS: PCP Family Medicine; Visit Provider Family Medicine
DX: R00.1 Bradycardia, unspecified (principal)
CPT/HCPCS: 93242